=== PATIENT | male | born 1935 | race Caucasian/White ===

== ENCOUNTER 2017-12-13 19:45 | Emergency (ER) | payer MEDICARE ==
[2017-12-13] MEDS: LIDOCAINE W/EPINEPHRINE 1% 20ML VIAL SC (23:18)
[2017-12-13] MEDS: ADACEL/BOOSTRIX VACCINE (DIPHTH/PERTUSS/ACELL/TETANUS)0.5ML SYR (90715) IM (23:19)
== END 2017-12-14 00:12 | disposition home or self-care (01) ==
LOC: M ED 12-14 00:12
DX: S51.012A Laceration without foreign body of left elbow, initial encounter (principal); W01.198A Fall on same level from slipping, tripping and stumbling with subsequent striking against other object, initial encounter; Y92.830 Public park as the place of occurrence of the external cause; I10 Essential (primary) hypertension; E78.00 Pure hypercholesterolemia, unspecified; I25.2 Old myocardial infarction; Z86.73 Personal history of transient ischemic attack (TIA), and cerebral infarction without residual deficits; Z86.711 Personal history of pulmonary embolism; Z89.512 Acquired absence of left leg below knee; Z95.0 Presence of cardiac pacemaker; Z95.1 Presence of aortocoronary bypass graft; Z87.891 Personal history of nicotine dependence; Z88.8 Allergy status to other drugs, medicaments and biological substances; Z91.040 Latex allergy status
CPT/HCPCS: 90715

== ENCOUNTER 2019-08-31 11:13 | Emergency (ER) | payer MEDICARE ==
[~2019-08-31 11:13] MED LIST: ACET1TAB55 PO; ACET65TA OR; ALLO100T OR; ALLO100T PO; AMOX500C PO; CALCIUM PO; GABA-1171 PO; LISI-538 PO; LISI10TA4 PO; LOPR100T PO; MAG PO; METH750T PO; NEUR100C OR; OMEGA 3 FATTY ACIDS PO; PERC5TAB8 PO; PRAV40TA OR; PRAV80TA2 PO; PRAVACHOL PO; PRED10TA2 OR; PRED20TA OR; PRED20TA PO; PRIL40CA PO; PROT1TAB2 OR; TAMS0.4C2 PO; TIZA2TAB OR; TRAM50TA2 OR; TRAM50TA2 PO; TRIC1TAB OR; WHITE WILLOW BARK PO; ZANTAC PO; [UNRECOGNIZED DRUG - OTHER] PO
[2019-08-31] MEDS ORDERED: RANI150T14 (11:31)
[2019-08-31] MEDS ORDERED: ALLOPOW4 (11:31)
[2019-08-31] MEDS ORDERED: TAMS1CAP17 (11:31)
[2019-08-31] MEDS ORDERED: GABA-843 (11:31)
--- NOTE | 2019-08-31 12:02 | REP ---
Clinical: Dizziness . Findings: Age-related atrophy and microvascular ischemic changes are appreciated. The ventricles and sulci are symmetric. Sifuentes-white differentiation is maintained. There is no evidence for acute intracranial hemorrhage, mass/mass effect, pathology or infarction. No extra-axial fluid collection. Calvarium is intact. Paranasal sinuses and mastoid air cells are clear. Impression: Age related atrophy and microvascular ischemic changes. No acute intracranial hemorrhage, infarction, or mass/mass effect. Electronically Signed by Eric Livingston MD 08/31/2019 11:53 A
[2019-08-31 12:09] LABS: BASO % 0.3 % (0.0-1.0); EOS % 0.5 % (0.0-3.0); HEMATOCRIT 45.1 % (42.0-52.0); LYMPH # 0.7 10^3/uL (1.5-5.0); LYMPH % 7.9 % (24.0-44.0); MEAN CORPUSCULAR HEMOGLOBIN 30.9 pg (27.0-33.0); MEAN CORPUSCULAR HGB CONC 33.3 g/dl (32.0-36.5); MEAN CORPUSCULAR VOLUME 92.8 fl (80.0-96.0); MONO # 0.7 10^3/uL (0.0-0.8); MONO % 7.4 % (0.0-5.0); NEUTROPHILS # 7.3 10^3/uL (1.5-8.5); NEUTROPHILS % 83.4 % (36.0-66.0); PLATELET COUNT, AUTOMATED 128 10^3/uL (150-450); RED BLOOD COUNT 4.86 10^6/uL (4.30-6.10); WHITE BLOOD COUNT 8.7 10^3/uL (4.0-10.0)
[2019-08-31 12:22] LABS: ALBUMIN 3.4 GM/DL (3.2-5.2); ALT/SGPT 22 U/L (12-78); BILIRUBIN,TOTAL 0.5 MG/DL (0.2-1.0); BLOOD UREA NITROGEN 22 MG/DL (7-18); CALCIUM LEVEL 8.6 MG/DL (8.8-10.2); CARBON DIOXIDE LEVEL 25 MEQ/L (21-32); CHLORIDE LEVEL 106 MEQ/L (98-107); CK-MB VALUE MASS 2.2 NG/ML (<3.6); CPK CREATINE PHOSPHOKINASE 85 U/L (39-308); CREATININE FOR GFR 1.25 MG/DL (0.70-1.30); GLOMERULAR FILTRATION RATE 58.3 (>35); GLUCOSE, FASTING 127 MG/DL (70-100); MB/CK RELATIVE INDEX 2.59 (< OR =4); POTASSIUM SERUM 3.6 MEQ/L (3.5-5.1); SODIUM LEVEL 138 MEQ/L (136-145); TOTAL PROTEIN 6.5 GM/DL (6.4-8.2); TROPONIN I < 0.02 NG/ML (< 0.10)
[2019-08-31] MEDS ORDERED: NS 500 ML IV ONE (12:30)
[2019-08-31] MEDS ORDERED: MECLIZINE 25 MG TABLET PO ONE (13:00)
[2019-08-31 13:28] LABS: INFLUENZA A AMPLIFICATION NEGATIVE (NEGATIVE); INFLUENZA B AMPLIFICATION NEGATIVE (NEGATIVE)
[2019-08-31] MEDS ORDERED: MECL1TAB31 PO (14:18)
[2019-08-31 14:42] VITALS: BP 144/78
--- NOTE | 2019-08-31 18:01 | ECGEPIP ---
[facility] - ED Test Date: 2019-08-31 Pat Name: DORINA THORNTON SR Department: Room: - Gender: Male [employer]: sami : 1935 Requested By: Sofya Lin Order Number: [id number] Reading MD: Graham Estrada Measurements Intervals [place] Rate: 74 P: 112 DC: 146 QRS: -79 QRSD: 180 T: 92 QT: 455 QTc: 506 Interpretive Statements ELECTRONIC ATRIAL PACEMAKER ELECTRONIC VENTRICULAR PACEMAKER SIMILAR TO 01/09/15 Electronically Signed on 08-31-2019 18:01:49 EST by Graham Estrada
== END 2019-08-31 14:50 | disposition home or self-care (01) ==
LOC: M ED 11:13 → EDBD 11:13 → M ED 14:50
DX: R42 Dizziness and giddiness (principal); I13.10 Hypertensive heart and chronic kidney disease without heart failure, with stage 1 through stage 4 chronic kidney disease, or unspecified chronic kidney disease; I25.2 Old myocardial infarction; I25.10 Atherosclerotic heart disease of native coronary artery without angina pectoris; E78.5 Hyperlipidemia, unspecified; N18.3 Chronic kidney disease, stage 3 (moderate); Z86.73 Personal history of transient ischemic attack (TIA), and cerebral infarction without residual deficits; Z95.0 Presence of cardiac pacemaker; Z95.1 Presence of aortocoronary bypass graft; Z97.14 Presence of artificial left leg (complete) (partial); Z88.8 Allergy status to other drugs, medicaments and biological substances; Z88.6 Allergy status to analgesic agent; Z88.1 Allergy status to other antibiotic agents; Z91.040 Latex allergy status; Z79.899 Other long term (current) drug therapy

== ENCOUNTER 2019-12-27 01:44 | Inpatient (IN) | payer MEDICARE ==
[~2019-12-27] VITALS: Ht 172.7 cm; Wt 72.2 kg
[~2019-12-27 01:44] MED LIST changes: +ALLOPOW4; +GABA-843; +MECL1TAB31 PO; +RANI150T14; +TAMS1CAP17
[2019-12-27] MEDS ORDERED: MORPHINE 2 MG/ML 1ML VIAL (J2270) IV ONE (02:00)
[2019-12-27] MEDS ORDERED: ONDANSETRON 4MG/2ML VIAL IV ONE (02:00)
[2019-12-27] MEDS ORDERED: MELA2.5C3 PO (02:08)
[2019-12-27] MEDS ORDERED: ZYLO300T6 PO (02:08)
[2019-12-27] MEDS ORDERED: CALCTAB54 PO (02:08)
[2019-12-27] MEDS ORDERED: FLOM0.4C39 PO (02:08)
[2019-12-27] MEDS ORDERED: GABA-843 PO ×2 (02:08→09:49)
[2019-12-27] MEDS ORDERED: GABA-843 (02:08)
[2019-12-27] MEDS ORDERED: GNP250TA9 PO (02:08)
[2019-12-27] MEDS ORDERED: [UNRECOGNIZED DRUG - CODE] (02:08)
[2019-12-27 02:21] LABS: BASO % 0.3 % (0.0-1.0); EOS # 0.1 10^3/uL (0.0-0.5); EOS % 0.6 % (0.0-3.0); HEMATOCRIT 49.1 % (42.0-52.0); HEMOGLOBIN 16.3 g/dl (13.5-17.5); LYMPH # 1.4 10^3/uL (1.5-5.0); MEAN CORPUSCULAR HEMOGLOBIN 30.8 pg (27.0-33.0); MEAN CORPUSCULAR HGB CONC 33.2 g/dl (32.0-36.5); MEAN CORPUSCULAR VOLUME 92.6 fl (80.0-96.0); MONO # 0.9 10^3/uL (0.0-0.8); NEUTROPHILS # 9.1 10^3/uL (1.5-8.5); NEUTROPHILS % 78.6 % (36.0-66.0); PLATELET COUNT, AUTOMATED 120 10^3/uL (150-450); WHITE BLOOD COUNT 11.6 10^3/uL (4.0-10.0)
[2019-12-27] MEDS ORDERED: ISOVUE-370 76% 100ML VIAL As Ordered ONE (02:31)
[2019-12-27 02:33] LABS: ALBUMIN 3.7 GM/DL (3.2-5.2); BILIRUBIN,DIRECT 0.2 MG/DL (0.0-0.2); BILIRUBIN,TOTAL 0.5 MG/DL (0.2-1.0)
[2019-12-27] MEDS ORDERED: METAL LOCK LOOP XX ONE (02:35)
[2019-12-27] MEDS ORDERED: MORPHINE 4 MG/ML 1ML VIAL/SYRINGE (J2270) IV ONE (02:45)
[2019-12-27 02:57] LABS: INR 0.99; PROTHROMBIN TIME 12.8 SECONDS (11.8-14.0)
[2019-12-27 02:58] LABS: PARTIAL THROMBOPLASTIN TIME 30.8 SECONDS (25.0-38.4)
[2019-12-27] MEDS ORDERED: NS 1,000 ML IV SCH ×2 (03:00→10:15)
--- NOTE | 2019-12-27 03:14 | REPVR ---
PROCEDURE INFORMATION: Exam: CT Angiography Abdomen and Pelvis With Contrast Exam date and time: 12/27/2019 2:24 AM Age: 84 years old Clinical indication: Abdominal pain; Generalized; Additional info: Mid abd pain R/O aaa TECHNIQUE: Imaging protocol: Computed tomographic angiography of the abdomen and pelvis with intravenous contrast material. 3D rendering: MIP and/or 3D reconstructed images were created by the technologist. Radiation optimization: All CT scans at this facility use at least one of these dose optimization techniques: automated exposure control; mA and/or kV adjustment per patient size (includes targeted exams where dose is matched to clinical indication); or iterative reconstruction. Contrast material: ISO; Contrast volume: 100 ml; Contrast route: AC; COMPARISON: No relevant prior studies available. FINDINGS: Tubes, catheters and devices: Pacemaker in position. Lungs: Mild bibasilar fibro-atelectatic change, primarily involving the lower lobes. Calcified subpleural granuloma in the right base. Mediastinum: Mild hiatal hernia. Aorta: The abdominal aorta demonstrates fusiform aneurysmal dilatation in the infrarenal portion measuring 3.3 cm in diameter. No dissection is seen although there is some mural thrombus within the aneurysm. Celiac trunk and mesenteric arteries: The celiac artery is patent with mild origin stenosis with slight downward hook which may reflect a median arcuate ligament. Branches are unremarkable. The SMA and branches appear normal. The FAIZA is patent. Renal arteries: There is a single right renal artery which is patent and 2 patent left renal arteries. Right iliac arteries: Slight dilatation of the right common iliac artery measuring 18 mm with slight ectasia of the right external and internal iliac arteries compared to the left. Left iliac arteries: Small left external iliac artery which is patent. There is a small left common femoral artery which may extend to the left profunda. The left superficial femoral artery appears to be occluded. Liver: No mass. Gallbladder and bile ducts: Probable cholelithiasis which is obscured by motion artifact. Pancreas: Unremarkable. No mass. No ductal dilation. Spleen: Unremarkable. No splenomegaly. Adrenals: Unremarkable. No mass. Kidneys and ureters: Unremarkable. No solid mass. No hydronephrosis. Stomach and bowel: There is colonic diverticulosis without evidence of diverticulitis. Appendix: There are no changes of appendicitis. A normal appendix is not seen and may be obscured by motion artifact. Intraperitoneal space: Unremarkable. No free air. No significant fluid collection. Lymph nodes: Unremarkable. No enlarged lymph nodes. Bladder: The bladder is within normal limits but does protrude into a right inguinal hernia. Reproductive: Unremarkable as visualized. Bones/joints: Status post resection of the left 7th rib posteriorly and posterolaterally. Status post sternotomy. Soft tissues: Small left inguinal hernia containing fat and a small portion of sigmoid colon without obstruction. There is a small right inguinal hernia containing fat and a portion of the urinary bladder. IMPRESSION: 1. Mild bibasilar fibro-atelectatic change with old granulomatous disease. 2. Mild hiatal hernia. 3. Probable cholelithiasis which is obscured by motion artifact. 4. Colonic diverticulosis without diverticulitis. 5. Small left inguinal hernia containing fat and protrusion of the sigmoid just into the orifice. There is a larger right inguinal hernia which contains fat and a portion of the urinary bladder. 6. Fusiform abdominal aortic aneurysm measuring 3.3 cm. 7. Mild origin stenosis of the celiac artery with question of a median arcuate ligament. 8. Relatively small left external iliac artery and left common femoral artery which appears to occlude by the profunda origin with small collaterals given off. The left superficial femoral artery appears to be occluded. 9. Otherwise negative CTA abdomen/pelvis. Electronically signed by: Cornelio Rosales On 12/27/2019 03:13:46 AM
--- NOTE | 2019-12-27 04:03 | REPVR ---
PROCEDURE INFORMATION: Exam: US Abdomen Limited, Right Upper Quadrant Exam date and time: 12/27/2019 3:49 AM Age: 84 years old Clinical indication: Abdominal pain; Additional info: Abd pain TECHNIQUE: Imaging protocol: Real-time ultrasound of the abdomen with image documentation. Examination was focused on the right upper quadrant. COMPARISON: CT ANGIO ABDOMEN 12/27/2019 2:33 AM FINDINGS: Liver: The liver appears grossly within normal limits with no focal defects. Gallbladder: Multiple gallstones are noted in the gallbladder with sludge. There is borderline gallbladder wall thickening measuring slightly over 3 mm. Common bile duct: The CBD measures up to 12 mm with question of choledocholithiasis. Right kidney: The right kidney is normal measuring 9.3 cm with no hydronephrosis. There is a small cyst measuring 6 x 7 x 8 mm. IMPRESSION: 1. Cholelithiasis with sludge. 2. Dilated CBD measuring 12 mm with question of choledocholithiasis. Electronically signed by: Cornelio Rosales On 12/27/2019 04:03:36 AM
[2019-12-27] MEDS: MORPHINE 4 MG/ML 1ML VIAL/SYRINGE (J2270) IV PRN ×2 (04:07→04:45)
[2019-12-27] MEDS ORDERED: GI COCKTAIL 50ML BTL(HYOSCYAMINE/MAALOX/LIDOCAINE VISCOUS)(1:3:1) PO ONE (05:15)
[2019-12-27 06:15] LABS: BILIRUBIN,DIRECT 0.2 MG/DL (0.0-0.2); BILIRUBIN,TOTAL 0.5 MG/DL (0.2-1.0); TOTAL PROTEIN 5.4 GM/DL (6.4-8.2)
[2019-12-27] MEDS ORDERED: MECL-86 PO (06:50)
[2019-12-27] MEDS ORDERED: FAMO20TA PO (06:50)
[2019-12-27] MEDS ORDERED: PIPERACILLIN/TAZOBACTAM SOD 3.375 GM in D5W MINI-BAG PLUS 50 ML IV ONE (08:15)
[2019-12-27 09:08] VITALS: BP 160/82
[2019-12-27] MEDS ORDERED: OMEGCAP9 PO (09:49)
[2019-12-27] MEDS ORDERED: CALC600T57 PO (09:49)
[2019-12-27] MEDS ORDERED: CVS10CAP7 PO (09:49)
[2019-12-27] MEDS ORDERED: VITMTA PO (09:49)
[2019-12-27] MEDS ORDERED: MED REC COMMENT (09:49)
[2019-12-27] MEDS ORDERED: MAGN400T2 PO (09:49)
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
[2019-12-27 14:00] VITALS: BP 140/62
[2019-12-27] MEDS ORDERED: MECLIZINE 25 MG TABLET PO PRN (16:00)
[2019-12-27] MEDS ORDERED: ONDANSETRON 4MG/2ML VIAL IV PRN (16:15)
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
--- NOTE | 2019-12-27 16:59 | CR.PDOC ---
General Date of Consultation: Dec 27, 2019 Consultation REASON FOR CONSULTATION/CHIEF COMPLAINT: Abdominal pain HISTORY OF PRESENT ILLNESS: This is a very pleasant 84-year-old gentleman who is seen in the emergency room this morning for periumbilical abdominal pain. He was worked up thoroughly by our ER team, and abdominal imaging revealed gallstones which were evaluated by general surgery, Dr Rankin. He felt it was unlikely that the patient's pain was related to gallstones, but did feel it was likely GI related. Incidentally, the patient was found to have an infrarenal AAA. I was consulted for evaluation. 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 I believe this is an incidental finding. I do not believe it is related to the patient's current complaints of abdominal pain. Additionally, because of the patient's aortic anatomy, I do not feel he is not a candidate for endovascular aortic aneurysm repair. Due to his advanced age and comorbidities, and open aneurysm repair would have an extremely high morbidity and mortality associated with in this patient. Because of the perirenal nature of the aneurysm, he would be high-risk for renal failure postop. Because of his cardiac history, he would be high-risk for perioperative SC and associated pathology. There is a high likelihood that that he would not have a meaningful recovery afterwards. Typically, we also do not recommend repair of AAA if the patient's life expectancy is not expected to be more than 3 years from the time of repair. Although this is certainly not an exact science, I do not feel I would recommend an open repair of this patient. However, we would be happy to monitor the patient's status, and if he wanted to pursue more aggressive intervention, we would likely refer him to [place] for a higher level of care for this procedure if needed. I spoke with the patient at length and he is agreeable to this plan. He says his abdominal pain is gone and he is hoping to get back home soon. ALLERGIES: Please see below. HOME MEDICATIONS: Please see below. PAST MEDICAL HISTORY: AAA, neuropathy, CAD, BPH, HTN, HLD, gout, stage III CRI PAST SURGICAL HISTORY: Pacemaker, PCI, CABG, abdominal hernia repair, L AKA FAMILY HISTORY: Heart disease, cancer SOCIAL HISTORY: History of tobacco use, denies current tobacco use, denies alcohol or illicit drug use REVIEW OF SYSTEMS: CONSTITUTIONAL: Denies fevers or chills HEENT: Denies acute vision or hearing loss CARDIOVASCULAR: Denies current chest pain RESPIRATORY: Denies shortness of breath GENITOURINARY: Denies dysuria MUSCULOSKELETAL: Denies claudication, positive gout GASTROINTESTINAL: Positive abdominal pain SKIN: Denies rashes NEUROLOGICAL: An eye strokes, seizures, headaches PSYCHIATRIC: Denies anxiety or depression ENDOCRINE: Denies diabetes or thyroid disease HEMATOLOGIC/LYMPHATIC: Denies anemia ALLERGIC/IMMUNOLOGIC: Denies PHYSICAL EXAMINATION: VITAL SIGNS: Please see below. GENERAL APPEARANCE: Medically stable, no acute distress HEENT: Normocephalic, TMI, vision grossly intact RESPIRATORY: Clear to auscultation CARDIOVASCULAR: Regular rate and rhythm ABDOMEN: Soft mild periumbilical tenderness, no guarding or rebound positive bowel sounds EXTREMITIES: Distal pulses are weak RLE, biphasic signals at the DP and PT, foot are warm and perfused with 1 second capillary refill, stable L AKA NEUROLOGICAL: Moves all extremities equally, alert and oriented 3 PSYCHIATRIC: Pleasant and cooperative LABORATORY DATA: Please see below. ASSESSMENT/PLAN: Very pleasant 84-year-old gentleman with incidental finding of 4.6 cm perirenal AAA on CT workup for abdominal pain 1. No surgical intervention recommended at this time for stable nonruptured AAA 2. Follow-up CTA imaging in 6 months with vascular surgery clinic appointment We appreciate the opportunity to participate in the care of this patient Vital Signs/I&O Vital Signs Date Time Temp Pulse Resp B/P (MAP) Pulse Ox O2 Delivery O2 Flow Rate FiO2 12/27/19 14:00 98.5 85 17 140/62 (88) 92 Room Air 12/27/19 08:02 2.0 Laboratory Data Labs 24H Laboratory Tests 2 12/27/19 01:56: Total Bilirubin 0.5, Direct Bilirubin 0.2, Aspartate Amino Transf (AST/SGOT) 20, Alanine Aminotransferase (ALT/SGPT) 21, Alkaline Phosphatase 62, Total Protein 7.0, Albumin 3.7, Albumin/Globulin Ratio 1.1, Lipase 84 12/27/19 01:58: Immature Granulocyte % (Auto) 0.5, Neutrophils (%) (Auto) 78.6H, Lymphocytes (%) (Auto) 12.0L, Monocytes (%) (Auto) 8.0H, Eosinophils (%) (Auto) 0.6, Basophils (%) (Auto) 0.3, Neutrophils # (Auto) 9.1H, Lymphocytes # (Auto) 1.4L, Monocytes # (Auto) 0.9H, Eosinophils # (Auto) 0.1, Basophils # (Auto) 0.0, Nucleated Red Blood Cells % (auto) 0.0, Prothrombin Time 12.8, Prothromb Time International Ratio 0.99, Activated Partial Thromboplast Time 30.8 12/27/19 02:05: POC Glucose (Misc Panel) 120H, POC Sodium (Misc Panel) 139, POC Potassium (Misc Panel) 3.9, POC Chloride (Misc Panel) 97L, POC Total CO2 (Misc Panel) 30.0H, POC Blood Urea Nitrogen (Misc Panel 22, POC Ionized Calcium (Misc Panel) 5.3, POC Creatinine (Misc Panel) 1.4H, POC Hematocrit (Misc Panel) 51.0 12/27/19 02:08: POC Lactate (Misc Panel) 1.74 12/27/19 02:10: POC Troponin I (Misc) 0.02 12/27/19 05:22: Total Bilirubin 0.5, Direct Bilirubin 0.2, Aspartate Amino Transf (AST/SGOT) 14, Alanine Aminotransferase (ALT/SGPT) 18, Alkaline Phosphatase 51, Total Protein 5.4#L, Albumin 3.0L, Albumin/Globulin Ratio 1.3, Lipase 53L CBC/BMP Laboratory Tests 12/27/19 01:58 Allergies Coded Allergies: aspirin (Verified Allergy, Unknown, 08/31/19) atorvastatin (Verified Allergy, Unknown, 08/31/19) latex (Verified Allergy, Unknown, 08/31/19) rosuvastatin (Verified Allergy, Unknown, 08/31/19) tetracycline (Verified Allergy, Unknown, 08/31/19) Home Medications Scheduled Allopurinol (Zyloprim) 300 Mg Tablet, 300 MG PO DAILY, (Reported) Calcium Carbonate/Vitamin D3 (Calcium 600-Vit D3 200 Tablet) 1 Each Tablet, 2 TAB PO DAILY, (Reported) Famotidine (Famotidine) 20 Mg Tablet, 20 MG PO DAILY, (Reported) Fish Oil/Borage/Flax/Om3,6,9 1 ([place] 3-6-9 Complex Softgel) 400 Mg Capsule, 1 CAP PO 2XW, (Reported) Gabapentin (Gabapentin) 300 Mg Capsule, 600 MG PO BID, (Reported) AM/HS Gabapentin (Gabapentin) 300 Mg Capsule, 300 MG PO DAILY, (Reported) TAKES AT NOON Magnesium Oxide (Magnesium Oxide) 400 Mg Tablet, 400 MG PO QHS, (Reported) Melatonin (Melatonin) 10 Mg Capsule, 10 MG PO QHS, (Reported) Multivitamins (Thera M Plus Tablet) 1 Each Tablet, 1 TAB PO DAILY, (Reported) Tamsulosin HCl (Flomax) 0.4 Mg Capsule, 0.4 MG PO DAILY, (Reported) Scheduled PRN Meclizine HCl (Meclizine HCl) 25 Mg Tablet, 25 MG PO TID PRN for DIZZINESS, (Reported) Miscellaneous Medications [Med Rec Comment] , (Reported) ALL MEDICATIONS VERIFIED WITH PCP OFFICE PRISCILLA BURGOS MD Dec 27, 2019 16:59
[2019-12-27] MEDS: TAMSULOSIN 0.4 MG CAP PO SCH ×2 (17:07→17:31)
[2019-12-27] MEDS: MULTIVITAMINS/MINERALS THERAP 1 TAB PO SCH ×2 (17:08→17:31)
[2019-12-27] MEDS: CALCIUM/VITAMIN D 500 MG TAB PO SCH ×2 (17:08→17:32)
[2019-12-27] MEDS: allopurinoL 300 MG TAB PO SCH ×2 (17:09→17:32)
[2019-12-27] MEDS: OMEGA-3 1000MG CAPSULE PO SCH (17:31)
[2019-12-27] MEDS: PIPERACILLIN/TAZOBACTAM SOD 3.375 GM in D5W MINI-BAG PLUS 50 ML IV SCH ×2 (17:32→21:01)
[2019-12-27] MEDS: SUCRALFATE SUSP 1GM/10ML UD PO SCH (21:01)
[2019-12-27] MEDS: MAGNESIUM OXIDE 400 MG TAB (MAG-OX) PO SCH (21:01)
[2019-12-27] MEDS: PANTOPRAZOLE 40MG TAB (PROTONIX) PO SCH (21:01)
[2019-12-27] MEDS: GABAPENTIN 300 MG CAP PO SCH (21:01)
[2019-12-27] MEDS: ACETAMINOPHEN TAB 650MG DOSE (2X325MG) PO PRN (21:11)
--- NOTE | 2019-12-27 21:28 | ECGEPIP ---
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
[2019-12-27 22:00] VITALS: BP 116/54
[2019-12-27] MEDS: NS 1,000 ML IV SCH (22:14)
[2019-12-27 22:22] LABS: VENOUS BASE EXCESS -0.5 (-2.0-2.0); VENOUS HCO3 24.9 MEQ/L (23.0-27.0); VENOUS O2 SATURATION 96.9 % (60.0-80.0); VENOUS PARTIAL PRESSURE CO2 43.4 mmHg (38.0-50.0); VENOUS PARTIAL PRESSURE O2 85.7 mmHg (30.0-50.0); VENOUS PH 7.376 UNITS (7.330-7.430); VENOUS STANDARD HCO3 24.1 MEQ/L; VENOUS TOTAL CO2 26.2 MEQ/L (24.0-28.0)
[2019-12-28] VITALS (10 sets, daily range): BP systolic 105–152; BP diastolic 54–85
[2019-12-28] MEDS: PIPERACILLIN/TAZOBACTAM SOD 3.375 GM in D5W MINI-BAG PLUS 50 ML IV SCH ×3 (03:48→18:11)
[2019-12-28] MEDS: NS 1,000 ML IV SCH (03:51)
[2019-12-28] MEDS: ACETAMINOPHEN TAB 650MG DOSE (2X325MG) PO PRN (05:23)
[2019-12-28 05:35] LABS: HEMATOCRIT 42.5 % (42.0-52.0); MEAN CORPUSCULAR HEMOGLOBIN 30.7 pg (27.0-33.0); MEAN CORPUSCULAR VOLUME 95.9 fl (80.0-96.0); RED BLOOD COUNT 4.43 10^6/uL (4.30-6.10)
[2019-12-28 06:00] LABS: CALCIUM LEVEL 8.8 MG/DL (8.8-10.2); CREATININE FOR GFR 1.98 MG/DL (0.70-1.30); GLOMERULAR FILTRATION RATE 34.3 (>35); POTASSIUM SERUM 4.4 MEQ/L (3.5-5.1)
[2019-12-28] MEDS: SUCRALFATE SUSP 1GM/10ML UD PO SCH ×3 (06:00→21:32)
[2019-12-28 06:11] LABS: PLATELET COUNT, AUTOMATED 83 10^3/uL (150-450)
[2019-12-28 06:12] LABS: HEMOGLOBIN 13.6 g/dl (13.5-17.5)
[2019-12-28 07:01] LABS: ALBUMIN 2.7 GM/DL (3.2-5.2); BILIRUBIN,DIRECT 0.4 MG/DL (0.0-0.2); BILIRUBIN,TOTAL 1.4 MG/DL (0.2-1.0); TOTAL PROTEIN 5.7 GM/DL (6.4-8.2)
--- NOTE | 2019-12-28 07:41 | IPNPDOC ---
Date Seen The patient was seen on 12/28/19. Progress Note Patient seen and examined. He has been asymptomatic 4.6 cm AAA, nonruptured. This was an incidental finding on CT scan for abdominal pain. Today, the patient's abdominal pain is still resolved. He denies any. Umbilical tenderness ongoing, and says his symptoms at admission are no longer present. He is hopeful he will be able to go home today, but says he is not sure because they think he might still be too weak. He has no new back pain or other concerning factors for instability of AAA, and he is stable for discharge home from a vascular surgery standpoint. We will see him back in 6 months with a CTA of the abdomen and pelvis. We appreciate the opportunity to participate in the care of this patient. VS, I&O, 24H, [place] Vital Signs/I&O Vital Signs Date Time Temp Pulse Resp B/P (MAP) Pulse Ox O2 Delivery O2 Flow Rate FiO2 12/28/19 06:00 100.6 78 12 110/73 (85) 90 Nasal Cannula 2.0 I&O- Last 24 Hours up to 6 AM 12/28/19 06:00 Intake Total 2590 ml Output Total 1075 ml Balance 1515 ml Laboratory Data 24H LABS Laboratory Tests 2 12/27/19 22:14: Blood Gas Bicarbonate Standard 24.1, Venous Blood pH 7.376, Venous Blood Partial Pressure CO2 43.4, Venous Blood Partial Pressure O2 85.7H, Venous Blood Total Carbon Dioxide 26.2, Venous Blood HCO3 24.9, Venous Blood Oxygen Saturation 96.9H, Venous Blood Base Excess -0.5 12/28/19 05:09: Nucleated Red Blood Cells % (auto) 0.0, Immature Platelet Fraction 1.3, Anion Gap 5L, Glomerular Filtration Rate 34.3L, Calcium Level 8.8, Magnesium Level 2.0, Total Bilirubin 1.4#H, Direct Bilirubin 0.4H, Aspartate Amino Transf (AST/SGOT) 18, Alanine Aminotransferase (ALT/SGPT) 19, Alkaline Phosphatase 48, Total Protein 5.7L, Albumin 2.7L, Albumin/Globulin Ratio 0.9, Lipase 33L CBC/BMP Laboratory Tests 12/28/19 05:09 Microbiology Microbiology 12/27/19 Blood Culture, Received Pending PRISCILLA BURGOS MD Dec 28, 2019 07:41
[2019-12-28] MEDS: MULTIVITAMINS/MINERALS THERAP 1 TAB PO SCH (09:35)
[2019-12-28] MEDS: allopurinoL 300 MG TAB PO SCH (09:35)
[2019-12-28] MEDS: CALCIUM/VITAMIN D 500 MG TAB PO SCH (09:35)
[2019-12-28] MEDS: PANTOPRAZOLE 40MG TAB (PROTONIX) PO SCH ×2 (09:35→21:32)
[2019-12-28] MEDS: TAMSULOSIN 0.4 MG CAP PO SCH (09:37)
[2019-12-28] MEDS: GABAPENTIN 300 MG CAP PO SCH ×3 (09:37→21:32)
--- NOTE | 2019-12-28 10:31 | IPNPDOC ---
Text Note Date of Service The patient was seen on 12/28/19. NOTE Subjective: -Fever overnight to 100.5 - had BCx drawn, zosyn continued and maintenance fluids continued at 60cc/hr -Earlier in the day had been advanced to full liquid diet Objective: Vitals signs: HDS, afebrile this AM, Tmax over 24h was 100.5 General: Alert, No Acute Distress Eye: PERRLA, EOMI, anicteric ENT: MMM Neck: supple, no JVD Chest: CTAB Heart: RRR, no mrg Abdomen: Obese, normoactive bowel sounds, mild TTP mostly in epigastrium, negative Nunez's, no involuntary guarding or rebound Extremity:LLE s/p AKA, RLE without edema, WWP Skin: no noted rashes or lesions Neuro: Cranial Nerves 3-12 WNL, moving all extremities Psych: Mental status WNL, Oriented x 3 Labs: reviewed WBC increased to 17 Hgb 13.6 Platelets 83 na 140 K4.4 mag 2 Cr increased to 1.98 Assessment: 84 yo man with a pertinent medical history of CAD s/p CABG, s/p PPP, HTN, HLD, gout, CKD3 with baseline Cr 1.3-1.9, history of a PE, TIA, abdominal hernia, history of GIB and L AKA who presented to the ED diffuse abdominal pain that was worst in the epigastrium a few hours after having a pizza dinner and found on imaging to have cholelithiasis and possible choledocholithiasis and an infrarena l AAA deemed incidental on empiric zosyn, BID PPI and slow maintenance fluids with surgery onboard. Abdominal pain: likely 2/2 gall bladder/biliary tree pathology vs. less likely vascular in etiology despite AAA finding or gastritis. Now with fever and worsening leukocytosis c/f ascending cholangitis. -f/u AM LFTs -f/u AM lipase -Admission US showed significant gallstone and slugde, mild gall bladder thickening and possible choledocholithiasis -continue empiric zosyn -continued fluids at 60cc/hr -general surgery consulted, MRCP unfortunately not done due to PPM incompatibility. Now with fever overnight with c/f worsening cholecystitis vs. gallstone pancreatitis vs. developing cholangitis -->we do not have GI this week. On discussion with Dr. Chucho, decided to reach out to Dr. Heaton who graciously agreed to see the patient and potentially do an ERCP today. Made him NPO. -Vascular surgery consulted for AAA, appreciate recs -pain appears well controlled -PPI BID -sucralfate TID Mild thrombocytopenia: at baseline -monitor. To use mechanicals for DVT ppx BPH -flomax chronic pain -continue home gabapentin CAD s/p CABG: -Had GIB associated with ASA use, monitor -EKG was non ischemic and troponin negative and without chest pain. Gout -allopurinol CKD3: at baseline -monitor BMP daily -avoid nephrotoxins Oscal D Multivitamin DVT ppx: DMITRI and SCD Dispo: medsurg VS,Fishbone, I+O VS, Fishbone, I+O Laboratory Tests 12/28/19 05:09 Vital Signs Date Time Temp Pulse Resp B/P (MAP) Pulse Ox O2 Delivery O2 Flow Rate FiO2 12/28/19 02:00 98.9 71 16 105/54 (71) 95 Nasal Cannula 2.0 I&O- Last 24 Hours up to 6 AM 12/28/19 06:00 Intake Total 2590 ml Output Total 675 ml Balance 1915 ml SABRINA PAULA MD Dec 28, 2019 06:44
--- NOTE | 2019-12-28 11:44 | IPN ---
DATE: 12/28/2019 The patient overnight had a temperature spike up 100.6 and his white count bumped up to 17,000. Unfortunately, his bilirubin bumped to 1.4. He still does not complain of right upper quadrant pain. Most of his pain is in the midabdomen. His lipase is still normal. Overall, he states this is not as severe as it originally was and imaging beforehand revealed dilated common bile duct with a possible common bile duct stone and CTA was otherwise unremarkable. No evidence of cholecystitis on the study. No evidence of inflammatory process intra-abdominally, thus given our only current positive findings as being a dilated common bile duct with a common bile duct stone and elevated temperature, white count, and sit starting to elevate liver function tests (LFTs) suggest this might have a possibility of being ascending cholangitis. I would have expected the LFTs to be much higher at this point, but in any case, I recommended to the hospitalist to obtain a GI consultation for possible endoscopic retrograde cholangiopancreatography (ERCP) given that he has a pacemaker and is unable to proceed with a magnetic resonance cholangiopancreatography (MRCP). Dr. Tello is around this weekend for surgical consultation should any additional findings or problems develop.
[2019-12-28] MEDS ORDERED: LIDOCAINE 2% 100MG/5ML SDV (FOR ANES.) As Ordered ONE (14:23)
[2019-12-28] MEDS ORDERED: ROCURONIUM BROMIDE 50 MG/5 ML VIAL As Ordered ONE (14:23)
[2019-12-28] MEDS ORDERED: propofoL 200 MG/20 ML VIAL As Ordered ONE (14:23)
[2019-12-28] MEDS ORDERED: fentaNYL 250 MCG/5 ML INJECTION (J3010) As Ordered ONE (14:23)
[2019-12-28] MEDS ORDERED: ISOVUE-300 61% 50ML VIAL As Ordered ONE (14:31)
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
[2019-12-28] MEDS ORDERED: ePHEDrine SULFATE 25 MG/5 ML(5MG/ML) SYRINGE As Ordered ONE (15:02)
[2019-12-28] MEDS ORDERED: PHENYLephrine HCL 500 MCG/5 ML (100MCG/ML) SYRINGE (J2370) As Ordered ONE (15:02)
[2019-12-28] MEDS ORDERED: ONDANSETRON 4MG/2ML VIAL As Ordered ONE (15:08)
[2019-12-28] MEDS ORDERED: dexameTHASONE 4 MG/ML 1ML VIAL (J1100 PER 1MG) As Ordered ONE (15:08)
[2019-12-28] MEDS ORDERED: SUGAMMADEX SODIUM 500 MG/5 ML VIAL (BRIDION) As Ordered ONE (15:17)
--- NOTE | 2019-12-28 16:12 | ROOR ---
Patient Name: Rakesh Higgins Procedure Date: 12/28/2019 2:54 PM Date of : 1935 Age: 84 Room: Main OR Gender: Male Note Status: Finalized Procedure: ERCP Indications: Bile duct stone(s), Suspected ascending cholangitis Providers: Jr Heaton MD Referring MD: Yaneth Beal Md Requesting Provider: Douglas Rankin Jr, MD Medicines: Monitored Anesthesia Care Complications: No immediate complications. Procedure: Pre-Anesthesia Assessment: - Prior to the procedure, a History and Physical was performed, and patient medications and allergies were reviewed. The patient is competent. The risks and benefits of the procedure and the sedation options and risks were discussed with the patient. All questions were answered and informed consent was obtained. Patient identification and proposed procedure were verified by the physician, the nurse and the anesthesiologist in the procedure room. Mental Status Examination: alert and oriented. Airway Examination: normal oropharyngeal airway and neck mobility. Respiratory Examination: clear to auscultation. CV Examination: normal. Prophylactic Antibiotics: The patient does not require prophylactic antibiotics. Prior Anticoagulants: The patient has taken no previous anticoagulant or antiplatelet agents. ASA Grade Assessment: III - A patient with severe systemic disease. After reviewing the risks and benefits, the patient was deemed in satisfactory condition to undergo the procedure. The anesthesia plan was to use general anesthesia. Immediately prior to administration of medications, the patient was re-assessed for adequacy to receive sedatives. The heart rate, respiratory rate, oxygen saturations, blood pressure, adequacy of pulmonary ventilation, and response to care were monitored throughout the procedure. The physical status of the patient was re-assessed after the procedure. The Duodenoscope was introduced through the mouth, and advanced to the duodenum and used to inject contrast into the bile duct. The ERCP was accomplished without difficulty. The patient tolerated the procedure well. Findings: The office equipment technician film was normal. The esophagus was successfully intubated under direct vision. The scope was advanced to a normal major papilla in the descending duodenum without detailed examination of the pharynx, larynx and associated structures, and upper GI tract. The upper GI tract was grossly normal. A 0.035 inch x 260 cm straight Hydra Jagwire was passed into the biliary tree. The short-nosed traction sphincterotome was passed over the guidewire and the bile duct was then deeply cannulated. Contrast was injected. I personally interpreted the bile duct images. Ductal flow of contrast was adequate. Image quality was adequate. Contrast extended to the cystic duct. Contrast extended to the gallbladder. Contrast extended to the entire biliary tree. The common bile duct was partially obstructed. The main bile duct was mildly dilated, acquired. The largest diameter was 10 mm. The gallbladder contained multiple stones. Biliary sphincterotomy was made with a monofilament traction (standard) sphincterotome using ERBE electrocautery. There was no post-sphincterotomy bleeding. The biliary tree was swept with a 10 mm balloon starting at the bifurcation. Sludge was swept from the duct. A few stones were removed. No stones remained. Cells for cytology were obtained by brushing in the lower third of the main bile duct where suspected stricture is noted. One 10 mm by 6 cm covered metal stent was placed into the common bile duct. Bile flowed through the stent. The stent was in good position. Pancreatic duct was neither cannulated nor opacified. Impression: - A biliary tract obstruction was found in the common bile duct. - The entire main bile duct was mildly dilated, acquired. - Choledocholithiasis with a partial obstruction was found. Complete removal was accomplished by biliary sphincterotomy and balloon extraction. - A biliary sphincterotomy was performed. - The biliary tree was swept. - Cells for cytology obtained the lower third of the main bile duct where suspected stricture is noted. - One covered metal stent was placed into the common bile duct. - Pancreatic duct was neither cannulated nor opacified. Recommendation: - The patient will be observed post-procedure, until all discharge criteria are met. - Return patient to [facility] for [facility] care. - Patient has a contact number available for emergencies. The signs and symptoms of potential delayed complications were discussed with the patient. Return to normal activities tomorrow. Written discharge instructions were provided to the patient. - Avoid aspirin and nonsteroidal anti-inflammatory medicines. - Clear liquid diet for 1 day, then advance as tolerated to cardiac diet. - Further evaluate to ruleout other sources of sepsis. - Await cytology results. - Telephone GI clinic for pathology results in 2 weeks. - Repeat ERCP in 3 months to remove stent depending on the clinical course.. Consider elective cholscystectomy based on clinical course. - Telephone GI clinic to schedule appointment in [facility] (address [address], [address], [place] [address]) in 4 -- 6 weeks. Please call GI clinic @ [phone] for apppointment date and time. - Return to primary care physician. Jr Heaton MD Jr Heaton MD 12/28/2019 4:11:59 PM Electronically signed by Jr Heaton MD Number of Addenda: 0 Note Initiated On: 12/28/2019 2:54 PM Estimated Blood Loss: Estimated blood loss: none.
[2019-12-28] MEDS ORDERED: oxyCODONE 5MG TAB PO PRN (16:15)
[2019-12-28] MEDS ORDERED: fentaNYL 100 MCG/2 ML INJECTION (J3010) IV PRN (16:15)
[2019-12-28] MEDS ORDERED: ONDANSETRON 4MG/2ML VIAL IV PRN (16:15)
[2019-12-28] MEDS ORDERED: LR 1,000 ML IV SCH (16:15)
[2019-12-28] MEDS ORDERED: oxyCODONE 5MG TAB As Ordered ONE (16:50)
--- NOTE | 2019-12-28 17:10 | REP ---
C-ARM VIEWS DURING ERCP: Multiple C-arm views are performed during ERCP. Contrast is injected into the common bile duct, which appears mildly dilated at 11 mm. Some contrast extends into the gallbladder which demonstrates multiple filling defects, consistent with gallstones. I do not see a definite filling defect or focal stricture in the common bile duct. A stent is placed in the distal common bile duct. 34 seconds fluoroscopy time utilized. Electronically Signed by Kulwant Sifuentes MD 01/01/2020 06:55 P
[2019-12-28] MEDS ORDERED: PIPERACILLIN/TAZOBACTAM SOD 3.375 GM in D5W MINI-BAG PLUS 50 ML IV SCH (18:00)
[2019-12-28 20:34] LABS: HEMATOCRIT 41.8 % (42.0-52.0); HEMOGLOBIN 13.4 g/dl (13.5-17.5); MEAN CORPUSCULAR HEMOGLOBIN 30.8 pg (27.0-33.0); MEAN CORPUSCULAR HGB CONC 32.1 g/dl (32.0-36.5); MEAN CORPUSCULAR VOLUME 96.1 fl (80.0-96.0); RED BLOOD COUNT 4.35 10^6/uL (4.30-6.10); WHITE BLOOD COUNT 18.9 10^3/uL (4.0-10.0)
[2019-12-28 20:44] LABS: PLATELET COUNT, AUTOMATED 79 10^3/uL (150-450)
[2019-12-28 20:45] LABS: ALBUMIN 2.8 GM/DL (3.2-5.2); BILIRUBIN,DIRECT 0.6 MG/DL (0.0-0.2); BILIRUBIN,TOTAL 1.3 MG/DL (0.2-1.0); TOTAL PROTEIN 5.7 GM/DL (6.4-8.2)
[2019-12-28] MEDS: MAGNESIUM OXIDE 400 MG TAB (MAG-OX) PO SCH (21:32)
[2019-12-28] MEDS: PIPERACILLIN/TAZOBACTAM SOD 2.25 GM in D5W MINI-BAG PLUS 50 ML IV SCH (23:32)
[2019-12-29] VITALS (7 sets, daily range): BP systolic 116–131; BP diastolic 56–68
[2019-12-29] MEDS: NS 1,000 ML IV SCH (04:22)
[2019-12-29] MEDS: PIPERACILLIN/TAZOBACTAM SOD 2.25 GM in D5W MINI-BAG PLUS 50 ML IV SCH ×2 (05:42→12:48)
[2019-12-29] MEDS: SUCRALFATE SUSP 1GM/10ML UD PO SCH ×3 (05:42→21:19)
[2019-12-29 06:43] LABS: HEMATOCRIT 40.2 % (42.0-52.0); HEMOGLOBIN 12.9 g/dl (13.5-17.5); MEAN CORPUSCULAR HEMOGLOBIN 30.9 pg (27.0-33.0); MEAN CORPUSCULAR HGB CONC 32.1 g/dl (32.0-36.5); MEAN CORPUSCULAR VOLUME 96.4 fl (80.0-96.0); RED BLOOD COUNT 4.17 10^6/uL (4.30-6.10); WHITE BLOOD COUNT 15.7 10^3/uL (4.0-10.0)
[2019-12-29 06:48] LABS: PLATELET COUNT, AUTOMATED 72 10^3/uL (150-450)
[2019-12-29 07:03] LABS: CALCIUM LEVEL 8.3 MG/DL (8.8-10.2); CREATININE FOR GFR 1.71 MG/DL (0.70-1.30); GLOMERULAR FILTRATION RATE 40.6 (>35); MAGNESIUM LEVEL 2.3 MG/DL (1.8-2.4); POTASSIUM SERUM 4.3 MEQ/L (3.5-5.1)
[2019-12-29] MEDS: CALCIUM/VITAMIN D 500 MG TAB PO SCH (08:13)
[2019-12-29] MEDS: GABAPENTIN 300 MG CAP PO SCH ×3 (08:13→21:19)
[2019-12-29] MEDS: TAMSULOSIN 0.4 MG CAP PO SCH (08:13)
[2019-12-29] MEDS: PANTOPRAZOLE 40MG TAB (PROTONIX) PO SCH ×2 (08:14→21:19)
[2019-12-29] MEDS: MULTIVITAMINS/MINERALS THERAP 1 TAB PO SCH (08:14)
[2019-12-29] MEDS: allopurinoL 300 MG TAB PO SCH (08:14)
--- NOTE | 2019-12-29 13:40 | IPNPDOC ---
Text Note Date of Service The patient was seen on 12/29/19. NOTE Subjective: -Afebrile, HDS, no complaints this morning -Had ERCP yesterday with Dr. Heaton that went well and had CBD stone and possible stricture noted s/p stent placement -Tolerating clear liquid diet, advanced to regular this AM Objective: Vitals signs: HDS, afebrile this AM General: Alert, No Acute Distress Eye: PERRLA, EOMI, anicteric ENT: MMM Neck: supple, no JVD Chest: CTAB Heart: RRR, no mrg Abdomen: Obese, normoactive bowel sounds, mild TTP mostly in epigastrium, negative Nunez's, no involuntary guarding or rebound Extremity:LLE s/p AKA, RLE without edema, WWP Skin: no noted rashes or lesions Neuro: Cranial Nerves 3-12 WNL, moving all extremities Psych: Mental status WNL, Oriented x 3 Labs: reviewed WBC down to 15.7 Hgb 12.9 Platelets 72 na 133 K4.3 mag 2.3 Cr increased to 1.71 Tbili 1.3 Assessment: 84 yo man with a pertinent medical history of CAD s/p CABG, s/p PPP, HTN, HLD, gout, CKD3 with baseline Cr 1.3-1.9, history of a PE, TIA, abdominal hernia, history of GIB and L AKA who presented to the ED diffuse abdominal pain that was worst in the epigastrium a few hours after having a pizza dinner and found on imaging to have cholelithiasis and possible choledocholithiasis and an infrarenal AAA deemed incidental on empiric zosyn, who course was c/b fever and now s/p ERCP with stenting by GI now afebrile with downtrending leukocytosis. Abdominal pain: likely 2/2choledocholithiasis unlikely billy cholangitis per ERCP findings vs. less likely vascular in etiology despite AAA finding or gastritis. -switch from zosyn to cipro/flagyl PO -Had ERCP with Dr. 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 - GI recommending avoiding aspirin and NSAIDs, clear liquid diet for 1 day, then advance as tolerated to cardiac diet, and further evaluate to rule out other sources of sepsis. - f/u cytology results. - Patient to telephone GI clinic for pathology results in 2 weeks. - GI recommending repeat ERCP in 3 months to remove stent depending on the clinical course and consider elective cholscystectomy based on clinical course. - Outpatient GI scheduling info: Telephone GI clinic to schedule appointment in [facility] (address [address], [address], [place], [facility]) in 4 -- 6 weeks. Please call GI clinic @ [phone] for appointment date and time. -general surgery consulted, recommended GI's involvement for ERCP, appreciate recs -Vascular surgery consulted for AAA, appreciate recs -pain appears well controlled -PPI BID -sucralfate TID Worsening acute on chronic thrombocytopenia: Likely reactive in the setting of infection and acute inflammation -monitor. -TEDs and SCDs BPH -flomax chronic pain -continue home gabapentin CAD s/p CABG: -Had GIB associated with ASA use, monitor -EKG was non ischemic and troponin negative and without chest pain. Gout -allopurinol CKD3: at baseline -monitor BMP daily -avoid nephrotoxins Oscal D Multivitamin DVT ppx: DMITRI and SCD Dispo: medsurg, with ongoing PT/OT VS,Fishbone, I+O VS, Fishbone, I+O Laboratory Tests 12/28/19 20:08 12/29/19 05:51 Vital Signs Date Time Temp Pulse Resp B/P (MAP) Pulse Ox O2 Delivery O2 Flow Rate FiO2 12/29/19 07:10 97.5 75 17 124/62 (82) 94 Nasal Cannula 3.0 I&O- Last 24 Hours up to 6 AM 12/29/19 06:00 Intake Total 1870 ml Output Total 300 ml Balance 1570 ml SABRINA PAULA MD Dec 29, 2019 08:32
[2019-12-29] MEDS: CIPROFLOXACIN 500MG TABLET PO SCH (17:13)
--- NOTE | 2019-12-29 20:53 | IPNPDOC ---
Text Note Date of Service The patient was seen on 12/29/19. NOTE No acute events overnight. He is tolerating the clq diet. Denies nausea, emesis, fevers, or pain. VSSAF NAD abd - soft, NT, ND labs - below A) 84y/o male POD#1 s/p ERCP for choledocholithiasis P)reg diet ambulate monitor labs plan on d/c when medically stable and follow up with Dr. Rankin in the office in a couple weeks. Michale Tello DO VS,Xavi, I+O VS, Randybone, I+O Laboratory Tests 12/29/19 05:51 Vital Signs Date Time Temp Pulse Resp B/P (MAP) Pulse Ox O2 Delivery O2 Flow Rate FiO2 12/29/19 19:00 97.9 75 16 127/64 (85) 94 Nasal Cannula 2.0 I&O- Last 24 Hours up to 6 AM 12/29/19 06:00 Intake Total 1870 ml Output Total 300 ml Balance 1570 ml AMAYA TELLO DO Dec 29, 2019 20:53
[2019-12-29] MEDS: metroNIDAZOLE (FLAGYL) 500 MG TAB PO SCH (21:19)
[2019-12-29] MEDS: MAGNESIUM OXIDE 400 MG TAB (MAG-OX) PO SCH (21:19)
[2019-12-30] MEDS: SUCRALFATE SUSP 1GM/10ML UD PO SCH ×3 (05:17→21:18)
[2019-12-30] MEDS: metroNIDAZOLE (FLAGYL) 500 MG TAB PO SCH ×3 (05:17→21:18)
[2019-12-30] MEDS: CIPROFLOXACIN 500MG TABLET PO SCH ×2 (05:17→17:19)
[2019-12-30 06:00] VITALS: BP 145/75
[2019-12-30 06:04] LABS: HEMATOCRIT 39.9 % (42.0-52.0); HEMOGLOBIN 12.8 g/dl (13.5-17.5); MEAN CORPUSCULAR HEMOGLOBIN 30.8 pg (27.0-33.0); MEAN CORPUSCULAR HGB CONC 32.1 g/dl (32.0-36.5); MEAN CORPUSCULAR VOLUME 96.1 fl (80.0-96.0); RED BLOOD COUNT 4.15 10^6/uL (4.30-6.10); WHITE BLOOD COUNT 11.7 10^3/uL (4.0-10.0)
[2019-12-30 06:10] LABS: PLATELET COUNT, AUTOMATED 85 10^3/uL (150-450)
[2019-12-30 06:33] LABS: CALCIUM LEVEL 8.2 MG/DL (8.8-10.2); CREATININE FOR GFR 1.44 MG/DL (0.70-1.30); GLOMERULAR FILTRATION RATE 49.5 (>35); MAGNESIUM LEVEL 2.3 MG/DL (1.8-2.4); POTASSIUM SERUM 4.1 MEQ/L (3.5-5.1)
--- NOTE | 2019-12-30 07:08 | IPNPDOC ---
Text Note Date of Service The patient was seen on 12/30/19. NOTE No acute events overnight. He is tolerating the reg diet. Denies nausea, emesis, fevers, or pain. VSSAF NAD abd - soft, NT, ND labs - below A) 84y/o male POD#2 s/p ERCP for choledocholithiasis P)reg diet ambulate monitor labs plan on d/c when medically stable and follow up with Dr. Rankin in the office in a couple weeks. No further surgical intervention during this admission. Michael Tello DO VS,Edee, I+O VS, Fishbone, I+O Laboratory Tests 12/30/19 05:50 Vital Signs Date Time Temp Pulse Resp B/P (MAP) Pulse Ox O2 Delivery O2 Flow Rate FiO2 12/30/19 06:00 99.3 77 17 145/75 (98) 94 Nasal Cannula 2.0 I&O- Last 24 Hours up to 6 AM 12/30/19 06:00 Intake Total 2205 ml Output Total 1475 ml Balance 730 ml AMAYA TELLO DO Dec 30, 2019 07:08
[2019-12-30] MEDS ORDERED: FLAG500T PO (07:57)
[2019-12-30] MEDS ORDERED: CIPR-249 PO (07:57)
[2019-12-30] MEDS ORDERED: PANT40TA3 PO (07:57)
[2019-12-30] MEDS: GABAPENTIN 300 MG CAP PO SCH ×3 (08:42→21:18)
[2019-12-30] MEDS: TAMSULOSIN 0.4 MG CAP PO SCH (08:42)
[2019-12-30] MEDS: PANTOPRAZOLE 40MG TAB (PROTONIX) PO SCH ×2 (08:42→21:18)
[2019-12-30] MEDS: MULTIVITAMINS/MINERALS THERAP 1 TAB PO SCH (08:42)
[2019-12-30] MEDS: CALCIUM/VITAMIN D 500 MG TAB PO SCH (08:43)
[2019-12-30] MEDS: allopurinoL 300 MG TAB PO SCH (08:43)
--- NOTE | 2019-12-30 11:54 | IPNPDOC ---
Text Note Date of Service The patient was seen on 12/30/19. NOTE Subjective: -Afebrile, HDS, no complaints this morning just feels really tired -Tolerating regular diet Objective: Vitals signs: HDS, afebrile this AM General: Alert, No Acute Distress Eye: PERRLA, EOMI, anicteric ENT: MMM Neck: supple, no JVD Chest: CTAB Heart: RRR, no mrg Abdomen: Obese, normoactive bowel sounds,no TTP, negative Nunez's, no involuntary guarding or rebound Extremity:LLE s/p AKA, RLE without edema, WWP Skin: no noted rashes or lesions Neuro: Cranial Nerves 3-12 WNL, moving all extremities Psych: Mental status WNL, Oriented x 3 Labs: reviewed WBC down to 11.7 Hgb 12.8 Platelets 85 na 144 K4.1 mag 2.3 Cr downtrended to 1.44 Assessment: 84 yo man with a pertinent medical history of CAD s/p CABG, s/p PPP, HTN, HLD, gout, CKD3 with baseline Cr 1.3-1.9, history of a PE, TIA, abdominal hernia, history of GIB and L AKA who presented to the ED diffuse abdominal pain that was worst in the epigastrium a few hours after having a pizza dinner and found on imaging to have cholelithiasis and possible choledocholithiasis and an infrarenal AAA deemed incidental on empiric zosyn, who course was c/b fever and now s/p ERCP with stenting by GI now afebrile with downtrending leukocytosis, pending discharge home when PT appropriate. Abdominal pain: likely 2/2 choledocholithiasis and biliary colic, unlikely billy cholangitis per ERCP findings vs. less likely vascular in etiology despite AAA finding or gastritis. -continue cipro/flagyl PO for 4 more days -Had ERCP with Dr. 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 - GI recommending avoiding aspirin and NSAIDs, clear liquid diet for 1 day, then advance as tolerated to cardiac diet, and further evaluate to rule out other sources of sepsis. - f/u cytology results. - Patient to telephone GI clinic for pathology results in 2 weeks. - GI recommending repeat ERCP in 3 months to remove stent depending on the clinical course and consider elective cholecystectomy based on clinical course. - Outpatient GI scheduling info: Telephone GI clinic to schedule appointment in [facility] (address [address], [address], [place], [address]) in 4 -- 6 weeks. Please call GI clinic @ [phone] for appointment date and time. -general surgery consulted, recommended GI's involvement for ERCP, to follow up outpatient with Dr. Rankin, appreciate recs -Vascular surgery consulted for AAA, appreciate recs, to have follow up imaging in 3months -pain resolved -PPI daily, PO -sucralfate TID Worsening acute on chronic thrombocytopenia: Likely reactive in the setting of infection and acute inflammation -monitor. -TEDs and SCDs BPH -flomax chronic pain -continue home gabapentin CAD s/p CABG: -Had GIB associated with ASA use, monitor -EKG was non ischemic and troponin negative and without chest pain. Gout -allopurinol CKD3: at baseline -monitor BMP daily -avoid nephrotoxins Oscal D Multivitamin DVT ppx: DMITRI and SCD Dispo: pending PT/ot recs, not safe for home discharge at this time. VS,Fishbone, I+O VS, Fishbone, I+O Laboratory Tests 12/30/19 05:50 Vital Signs Date Time Temp Pulse Resp B/P (MAP) Pulse Ox O2 Delivery O2 Flow Rate FiO2 12/30/19 06:00 99.3 77 17 145/75 (98) 94 Nasal Cannula 2.0 I&O- Last 24 Hours up to 6 AM 12/30/19 05:59 Intake Total 2205 ml Output Total 1475 ml Balance 730 ml SABRINA PAULA MD Dec 30, 2019 07:55
[2019-12-30 14:00] VITALS: BP 155/70
[2019-12-30] MEDS: ACETAMINOPHEN TAB 650MG DOSE (2X325MG) PO PRN (14:18)
[2019-12-30] MEDS: MAGNESIUM OXIDE 400 MG TAB (MAG-OX) PO SCH (21:17)
[2019-12-30 22:00] VITALS: BP 120/51
[2019-12-30 22:19] VITALS: O2SAT 94
[2019-12-31] MEDS: SUCRALFATE SUSP 1GM/10ML UD PO SCH ×3 (05:03→20:59)
[2019-12-31] MEDS: CIPROFLOXACIN 500MG TABLET PO SCH ×2 (05:03→17:45)
[2019-12-31] MEDS: metroNIDAZOLE (FLAGYL) 500 MG TAB PO SCH ×3 (05:03→20:59)
[2019-12-31 05:57] LABS: HEMATOCRIT 40.1 % (42.0-52.0); HEMOGLOBIN 12.8 g/dl (13.5-17.5); MEAN CORPUSCULAR HEMOGLOBIN 30.7 pg (27.0-33.0); MEAN CORPUSCULAR HGB CONC 31.9 g/dl (32.0-36.5); MEAN CORPUSCULAR VOLUME 96.2 fl (80.0-96.0); PLATELET COUNT, AUTOMATED 101 10^3/uL (150-450); RED BLOOD COUNT 4.17 10^6/uL (4.30-6.10); WHITE BLOOD COUNT 9.5 10^3/uL (4.0-10.0)
[2019-12-31 06:00] VITALS: BP 150/72
[2019-12-31 06:12] LABS: CALCIUM LEVEL 8.1 MG/DL (8.8-10.2); CREATININE FOR GFR 1.36 MG/DL (0.70-1.30); GLOMERULAR FILTRATION RATE 52.9 (>35); POTASSIUM SERUM 3.9 MEQ/L (3.5-5.1)
[2019-12-31] MEDS: CALCIUM/VITAMIN D 500 MG TAB PO SCH (10:56)
[2019-12-31] MEDS: MULTIVITAMINS/MINERALS THERAP 1 TAB PO SCH (10:56)
[2019-12-31] MEDS: TAMSULOSIN 0.4 MG CAP PO SCH (10:56)
[2019-12-31] MEDS: OMEGA-3 1000MG CAPSULE PO SCH (10:56)
[2019-12-31] MEDS: allopurinoL 300 MG TAB PO SCH (10:56)
[2019-12-31 10:57] VITALS: BP 135/63
[2019-12-31] MEDS: GABAPENTIN 300 MG CAP PO SCH ×3 (10:57→20:59)
[2019-12-31] MEDS: ACETAMINOPHEN TAB 650MG DOSE (2X325MG) PO PRN ×2 (10:57→17:53)
[2019-12-31] MEDS: PANTOPRAZOLE 40MG TAB (PROTONIX) PO SCH ×2 (10:57→20:59)
[2019-12-31 14:00] VITALS: BP 134/63; O2SAT 95
--- NOTE | 2019-12-31 17:10 | IPNPDOC ---
Text Note Date of Service The patient was seen on 12/31/19. NOTE Subjective: -Afebrile, HDS, some abdominal pain, feels tired -Tolerating regular diet Objective: Vitals signs: HDS, afebrile this AM General: Alert, No Acute Distress Eye: PERRLA, EOMI, anicteric ENT: MMM Neck: supple, no JVD Chest: CTAB Heart: RRR, no mrg Abdomen: Obese, normoactive bowel sounds,diffuse mild TTP, negative Nunez's, no involuntary guarding or rebound Extremity:LLE s/p AKA, RLE without edema, WWP Skin: no noted rashes or lesions Neuro: Cranial Nerves 3-12 WNL, moving all extremities Psych: Mental status WNL, Oriented x 3 Labs: reviewed WBC down to 9.5 Hgb 12.8 Platelets 101 na 144 K3.9 Cr downtrended to 1.36 Assessment: 84 yo man with a pertinent medical history of CAD s/p CABG, s/p PPP, HTN, HLD, gout, CKD3 with baseline Cr 1.3-1.9, history of a PE, TIA, abdominal hernia, history of GIB and L AKA who presented to the ED diffuse abdominal pain that was worst in the epigastrium a few hours after having a pizza dinner and found on imaging to have cholelithiasis and possible choledocholithiasis and an infrarenal AAA deemed incidental on empiric zosyn, who course was c/b fever and now s/p ERCP with stenting by GI now afebrile with downtrending leukocytosis, with course now c/b physical deconditioning and mild hypoxemia. Abdominal pain: likely 2/2 choledocholithiasis and biliary colic, unlikely billy cholangitis per ERCP findings vs. less likely vascular in etiology despite AAA finding or gastritis. -continue cipro/flagyl PO, day 4. For 7 day course. -Had ERCP with Dr. 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 - GI recommending avoiding aspirin and NSAIDs, clear liquid diet for 1 day, then advance as tolerated to cardiac diet, and further evaluate to rule out other sources of sepsis. - f/u cytology results. - Patient to telephone GI clinic for pathology results in 2 weeks. - GI recommending repeat ERCP in 3 months to remove stent depending on the clinical course and consider elective cholecystectomy based on clinical course. - Outpatient GI scheduling info: Telephone GI clinic to schedule appointment in [facility] (address [address], [address], [place], [facility]) in 4 -- 6 weeks. Please call GI clinic @ [phone] for appointment date and time. -general surgery consulted, recommended GI's involvement for ERCP, to follow up outpatient with Dr. Rankin, appreciate recs -Vascular surgery consulted for AAA, appreciate recs, to have follow up imaging in 3months -PPI daily, PO -sucralfate TID Hypoxemic respiratory failure: likely 2/2 atelectasis in the setting of physical deconditioning and possible mild pulmonary edema s/p some fluids at admission -Incentive spirometry -PT/OT -otherwise euvolemic on exam acute on chronic thrombocytopenia: Likely reactive in the setting of infection and acute inflammation, now improving. -monitor. -TEDs and SCDs BPH -flomax chronic pain -continue home gabapentin CAD s/p CABG: -Had GIB associated with ASA use, monitor -EKG was non ischemic and troponin negative and without chest pain. Gout -allopurinol CKD3: at baseline -monitor BMP daily -avoid nephrotoxins Oscal D Multivitamin DVT ppx: DMITRI and SCDs Dispo: pending PT/OT recs, likely some rehabilitation. VS,Fishbone, I+O VS, Fishbone, I+O Laboratory Tests 12/31/19 05:25 Vital Signs Date Time Temp Pulse Resp B/P (MAP) Pulse Ox O2 Delivery O2 Flow Rate FiO2 12/31/19 14:00 99.2 74 19 134/63 (86) 95 Nasal Cannula 2.0 I&O- Last 24 Hours up to 6 AM 12/31/19 05:59 Intake Total 1080 ml Output Total 300 ml Balance 780 ml SABRINA PAULA MD Dec 31, 2019 17:09
[2019-12-31] MEDS: MAGNESIUM OXIDE 400 MG TAB (MAG-OX) PO SCH (20:58)
[2019-12-31 22:00] VITALS: BP 132/65
[2020-01-01 01:28] VITALS: O2SAT 95
[2020-01-01] MEDS: ACETAMINOPHEN TAB 650MG DOSE (2X325MG) PO PRN ×2 (03:11→14:16)
[2020-01-01] MEDS: CIPROFLOXACIN 500MG TABLET PO SCH ×2 (05:20→17:17)
[2020-01-01] MEDS: SUCRALFATE SUSP 1GM/10ML UD PO SCH ×2 (05:20→14:12)
[2020-01-01] MEDS: metroNIDAZOLE (FLAGYL) 500 MG TAB PO SCH ×2 (05:20→14:12)
[2020-01-01 06:00] VITALS: BP 130/65
[2020-01-01 06:10] LABS: HEMATOCRIT 40.8 % (42.0-52.0); HEMOGLOBIN 13.3 g/dl (13.5-17.5); MEAN CORPUSCULAR HEMOGLOBIN 30.5 pg (27.0-33.0); MEAN CORPUSCULAR HGB CONC 32.6 g/dl (32.0-36.5); MEAN CORPUSCULAR VOLUME 93.6 fl (80.0-96.0); PLATELET COUNT, AUTOMATED 107 10^3/uL (150-450); RED BLOOD COUNT 4.36 10^6/uL (4.30-6.10); WHITE BLOOD COUNT 8.8 10^3/uL (4.0-10.0)
[2020-01-01 06:17] LABS: BLOOD UREA NITROGEN 21 MG/DL (7-18); CALCIUM LEVEL 8.1 MG/DL (8.8-10.2); CARBON DIOXIDE LEVEL 25 MEQ/L (21-32); CHLORIDE LEVEL 111 MEQ/L (98-107); GLOMERULAR FILTRATION RATE > 60.0 (>35); GLUCOSE, FASTING 79 MG/DL (70-100); MAGNESIUM LEVEL 1.9 MG/DL (1.8-2.4); POTASSIUM SERUM 3.7 MEQ/L (3.5-5.1); SODIUM LEVEL 141 MEQ/L (136-145)
[2020-01-01] MEDS: TAMSULOSIN 0.4 MG CAP PO SCH (09:12)
[2020-01-01] MEDS: GABAPENTIN 300 MG CAP PO SCH ×2 (09:12→12:21)
[2020-01-01] MEDS: MULTIVITAMINS/MINERALS THERAP 1 TAB PO SCH (09:12)
[2020-01-01] MEDS: PANTOPRAZOLE 40MG TAB (PROTONIX) PO SCH (09:12)
[2020-01-01] MEDS: CALCIUM/VITAMIN D 500 MG TAB PO SCH (09:12)
[2020-01-01] MEDS: allopurinoL 300 MG TAB PO SCH (09:12)
[2020-01-01 14:00] VITALS: BP 136/67
[2020-01-01] MEDS ORDERED: MAALOX 30 ML SUSP *UDC PO PRN (17:00)
--- NOTE | 2020-01-01 17:07 | DS.PDOC ---
Discharge Summary General Date of Admission Dec 27, 2019 at 07:30 Date of Discharge 01/01/20 Discharge Summary PROCEDURES PERFORMED DURING STAY: [None]. ADMITTING DIAGNOSES: Abdominal pain choledocholithiasis biliary colic Hypoxemic respiratory failure physical deconditioning acute on chronic thrombocytopenia BPH chronic pain CAD s/p CABG: Gout CKD3 DISCHARGE DIAGNOSES: Abdominal pain choledocholithiasis biliary colic Hypoxemic respiratory failure physical deconditioning acute on chronic thrombocytopenia BPH chronic pain CAD s/p CABG: Gout CKD3 COMPLICATIONS/CHIEF COMPLAINT: Abdominal Aortic Aneurysm Without Rupture. HISTORY OF PRESENT ILLNESS: 84 yo man with a pertinent medical history of CAD s/p CABG, s/p PPP, HTN, HLD, gout, CKD3 with baseline Cr 1.3-1.9, history of a PE, TIA, abdominal hernia, history of GIB and L AKA who presented to the ED diffuse abdominal pain that was worst in the epigastrium a few hours after having a pizza dinner and found on imaging to have cholelithiasis and possible choledocholithiasis and an infrarenal AAA deemed incidental on empiric zosyn, who course was c/b fever and now s/p ERCP with stenting by GI now afebrile with downtrending leukocytosis, with course now c/b physical deconditioning and mild hypoxemia. HOSPITAL COURSE: During hospital stay following issue addressed Abdominal pain: likely 2/2 choledocholithiasis and biliary colic, unlikely billy cholangitis per ERCP findings vs. less likely vascular in etiology despite AAA finding or gastritis. -continue cipro/flagyl For 7 day course. -Had ERCP with Dr. 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 - GI recommending avoiding aspirin and NSAIDs, clear liquid diet for 1 day, then advance as tolerated to cardiac diet, and further evaluate to rule out other sources of sepsis. - f/u cytology results. - Patient to telephone GI clinic for pathology results in 2 weeks. - GI recommending repeat ERCP in 3 months to remove stent depending on the clinical course and consider elective cholecystectomy based on clinical course. - Outpatient GI scheduling info: Telephone GI clinic to schedule appointment in [facility] (address [address], [address], [place] [address]) in 4 -- 6 weeks. Please call GI clinic @ [phone] for appointment date and time. -general surgery consulted, recommended GI's involvement for ERCP, to follow up outpatient with Dr. Rankin, appreciate recs -Vascular surgery consulted for AAA, appreciate recs, to have follow up imaging in 3months -PPI daily, PO -sucralfate TID Hypoxemic respiratory failure: likely 2/2 atelectasis in the setting of physical deconditioning and possible mild pulmonary edema s/p some fluids at admission -Incentive spirometry -PT/OT -otherwise euvolemic on exam acute on chronic thrombocytopenia: Likely reactive in the setting of infection and acute inflammation, now improving. -monitor. -TEDs and SCDs BPH -flomax chronic pain -continue home gabapentin CAD s/p CABG: -Had GIB associated with ASA use, monitor -EKG was non ischemic and troponin negative and without chest pain. Gout -allopurinol CKD3: at baseline -monitor BMP daily -avoid nephrotoxins DISCHARGE MEDICATIONS: Please see below. ALLERGIES: Please see below. PHYSICAL EXAMINATION ON DISCHARGE: VITAL SIGNS: Please see below. General: Alert, No Acute Distress Eye: PERRLA, EOMI, anicteric ENT: MMM Neck: supple, no JVD Chest: CTAB Heart: RRR, no mrg Abdomen: Obese, normoactive bowel sounds,diffuse mild TTP, negative Nunez's, no involuntary guarding or rebound Extremity:LLE s/p AKA, RLE without edema, WWP Skin: no noted rashes or lesions Neuro: Cranial Nerves 3-12 WNL, moving all extremities Psych: Mental status WNL, Oriented x 3 LABORATORY DATA: Please see below. IMAGING:C-ARM VIEWS DURING ERCP: Multiple C-arm views are performed during ERCP. Contrast is injected into the common bile duct, which appears mildly dilated at 11 mm. Some contrast extends into the gallbladder which demonstrates multiple filling defects, consistent with gallstones. I do not see a definite filling defect or focal stricture in the common bile duct. A stent is placed in the distal common bile duct. 34 seconds fluoroscopy time utilized. PROGNOSIS: Fair ACTIVITY: [As tolerated]. DIET: Cardiac DISCHARGE PLAN: ARU DISCHARGE INSTRUCTIONS: - Await cytology results. - Telephone GI clinic for pathology results in 2 weeks. - Repeat ERCP in 3 months to remove stent depending on the clinical course.. Consider elective cholscystectomy based on clinical course. - Telephone GI clinic to schedule appointment in [facility] (address [address], [address], [place], [facility]) in 4 -- 6 weeks. Please call GI clinic @ [phone] for appointment date and time. - Return to primary care physician DISCHARGE CONDITION: [Stable]. TIME SPENT ON DISCHARGE: Greater than 20 minutes. Vital Signs/I&Os Vital Signs Date Time Temp Pulse Resp B/P (MAP) Pulse Ox O2 Delivery O2 Flow Rate FiO2 01/01/20 14:00 98.5 80 16 136/67 (90) 92 Nasal Cannula 2.0 I&O- Last 24 Hours up to 6 AM 01/01/20 06:00 Intake Total 1200 ml Output Total 400 ml Balance 800 ml Laboratory Data Labs 24H Laboratory Tests 2 01/01/20 05:28: Nucleated Red Blood Cells % (auto) 0.0, Anion Gap 5L, Glomerular Filtration Rate > 60.0, Calcium Level 8.1L, Magnesium Level 1.9 CBC/BMP Laboratory Tests 01/01/20 05:28 Microbiology Microbiology 12/28/19 Respiratory Virus Panel (PCR) ([facility]) - Final, Complete 12/27/19 Blood Culture - Preliminary, Resulted No Growth after 72 hours. All specime... Discharge Medications Scheduled Allopurinol (Zyloprim) 300 Mg Tablet, 300 MG PO DAILY, (Reported) Calcium Carbonate/Vitamin D3 (Calcium 600-Vit D3 200 Tablet) 1 Each Tablet, 2 TAB PO DAILY, (Reported) Ciprofloxacin HCl (Cipro) 500 Mg Tablet, 500 MG PO BID@18 Famotidine (Famotidine) 20 Mg Tablet, 20 MG PO DAILY, (Reported) Fish Oil/Borage/Flax/Om3,6,9 1 ([place] 3-6-9 Complex Softgel) 400 Mg Capsule, 1 CAP PO 2XW, (Reported) Gabapentin (Gabapentin) 300 Mg Capsule, 600 MG PO BID, (Reported) AM/HS Gabapentin (Gabapentin) 300 Mg Capsule, 300 MG PO DAILY, (Reported) TAKES AT NOON Magnesium Oxide (Magnesium Oxide) 400 Mg Tablet, 400 MG PO QHS, (Reported) Melatonin (Melatonin) 10 Mg Capsule, 10 MG PO QHS, (Reported) Metronidazole (Flagyl) 500 Mg Tablet, 500 MG PO Q8H Multivitamins (Thera M Plus Tablet) 1 Each Tablet, 1 TAB PO DAILY, (Reported) Pantoprazole Sodium (Pantoprazole Sodium) 40 Mg Tablet.dr, 40 MG PO DAILY Tamsulosin HCl (Flomax) 0.4 Mg Capsule, 0.4 MG PO DAILY, (Reported) Scheduled PRN Meclizine HCl (Meclizine HCl) 25 Mg Tablet, 25 MG PO TID PRN for DIZZINESS, (Reported) Miscellaneous Medications [Med Rec Comment] , (Reported) ALL MEDICATIONS VERIFIED WITH PCP OFFICE Allergies Coded Allergies: aspirin (Verified Allergy, Unknown, 08/31/19) atorvastatin (Verified Allergy, Unknown, 08/31/19) latex (Verified Allergy, Unknown, 08/31/19) rosuvastatin (Verified Allergy, Unknown, 08/31/19) tetracycline (Verified Allergy, Unknown, 08/31/19) ASHLIE MCKEON DO Jan 01, 2020 17:07
== END 2020-01-01 17:24 | DRG 444 ==
LOC: EDBD 01:44 → M ED 01:44 → M ED INP 07:30 → ENRESERV 07:48 → M MSPAV 09:07
PROVIDERS: ADMIT Internal Medicine; ATTEND Internal Medicine
PROC: 0F798DZ Dilation of Common Bile Duct with Intraluminal Device, Via Natural or Artificial Opening Endoscopic (ICD-10-PCS; 2019-12-28)
PROC: 0FB98ZX Excision of Common Bile Duct, Via Natural or Artificial Opening Endoscopic, Diagnostic (ICD-10-PCS; 2019-12-28)
PROC: 0FC98ZZ Extirpation of Matter from Common Bile Duct, Via Natural or Artificial Opening Endoscopic (ICD-10-PCS; principal; 2019-12-28 11:13)
DX: K80.33 Calculus of bile duct with acute cholangitis with obstruction (principal); J96.91 Respiratory failure, unspecified with hypoxia; I25.10 Atherosclerotic heart disease of native coronary artery without angina pectoris; I12.9 Hypertensive chronic kidney disease with stage 1 through stage 4 chronic kidney disease, or unspecified chronic kidney disease; Z86.711 Personal history of pulmonary embolism; M10.9 Gout, unspecified; N18.3 Chronic kidney disease, stage 3 (moderate); K44.9 Diaphragmatic hernia without obstruction or gangrene; E78.5 Hyperlipidemia, unspecified; N40.0 Benign prostatic hyperplasia without lower urinary tract symptoms; G89.29 Other chronic pain; D69.6 Thrombocytopenia, unspecified; Z86.73 Personal history of transient ischemic attack (TIA), and cerebral infarction without residual deficits; Z89.612 Acquired absence of left leg above knee; Z95.0 Presence of cardiac pacemaker; Z88.6 Allergy status to analgesic agent; Z88.1 Allergy status to other antibiotic agents; Z88.8 Allergy status to other drugs, medicaments and biological substances; Z91.040 Latex allergy status; Z79.899 Other long term (current) drug therapy; Z87.19 Personal history of other diseases of the digestive system; Z11.59 Encounter for screening for other viral diseases

== ENCOUNTER 2020-01-01 15:17 | Inpatient (IN) | payer MEDICARE ==
[~2020-01-01] VITALS: Ht 172.7 cm; Wt 69.7 kg
[~2020-01-01 15:17] MED LIST changes: +CALC600T57 PO; +CALCTAB54 PO; +CIPR-249 PO; +CVS10CAP7 PO; +FAMO20TA PO; +FLAG500T PO; +FLOM0.4C39 PO; +GABA-843 PO; +GNP250TA9 PO; +MAGN400T2 PO; +MECL-86 PO; +MED REC COMMENT; +MELA2.5C3 PO; +OMEGCAP9 PO; +PANT40TA3 PO; +VITMTA PO; +ZYLO300T6 PO; +[UNRECOGNIZED DRUG - CODE]
[2020-01-01 17:40] VITALS: BP 166/84
[2020-01-01] MEDS ORDERED: MECLIZINE 25 MG TABLET PO PRN (17:45)
[2020-01-01] MEDS ORDERED: BISACODYL 10 MG SUPP PR PRN (17:45)
[2020-01-01] MEDS ORDERED: MAALOX 30 ML SUSP *UDC PO PRN (17:45)
[2020-01-01] MEDS ORDERED: BISACODYL 5 MG TAB PO PRN (17:45)
[2020-01-01] MEDS ORDERED: MAALOX 30 ML SUSP *UDC PO ONE (17:45)
[2020-01-01] MEDS: LACTOBACILLUS ACIDOPHILUS CAP (BACID) PO SCH ×2 (18:50→21:31)
[2020-01-01 19:23] LABS: CK-MB VALUE MASS 1.2 NG/ML (<3.6); MB/CK RELATIVE INDEX 3.75 (< OR =4); TROPONIN I 0.05 NG/ML (< 0.10)
[2020-01-01 20:30] VITALS: BP 142/70
[2020-01-01] MEDS: GABAPENTIN 300 MG CAP PO SCH (21:32)
[2020-01-01] MEDS: MAGNESIUM OXIDE 400 MG TAB (MAG-OX) PO SCH (21:32)
[2020-01-01] MEDS: SENNA 8.6 MG TAB (SENOKOT) PO SCH (21:32)
[2020-01-01] MEDS: SUCRALFATE 1 GM TAB PO SCH (21:32)
[2020-01-01] MEDS: PANTOPRAZOLE 40MG TAB (PROTONIX) PO SCH (21:32)
[2020-01-01] MEDS: DOCUSATE SODIUM 100 MG CAP PO SCH (21:32)
[2020-01-01] MEDS: metroNIDAZOLE (FLAGYL) 500 MG TAB PO SCH (21:32)
[2020-01-01] MEDS: REMEDY PHYTOPLEX Z-GUARD PASTE 113GM TUBE (FROM STOREROOM PRODUCT) TOP SCH (21:39)
[2020-01-01] MEDS: ACETAMINOPHEN TAB 650MG DOSE (2X325MG) PO PRN (21:49)
[2020-01-01] MEDS: HEPARIN SOD (PORCINE) 5000UNITS/ML VIAL (J1644 PER 1000UNITS) SC SCH (21:50)
--- NOTE | 2020-01-02 00:33 | REPVR ---
PROCEDURE INFORMATION: Exam: US Duplex Lower Extremity Veins, Bilateral Exam date and time: 01/01/2020 12:15 AM Age: 84 years old Clinical indication: Pain; Leg, upper; Right; Prior surgery; Surgery date: 6+ months; Surgery type: Patient states veins removed from leg of open heart surgery; Additional info: Immobility TECHNIQUE: Imaging protocol: Real-time duplex ultrasound of the extremities with 2-D mckeon scale, color Doppler flow and spectral waveform analysis with image documentation. Complete exam focused on the bilateral lower extremity veins. COMPARISON: No relevant prior studies available. FINDINGS: Right deep veins: Unremarkable. The common femoral, femoral, proximal profunda femoral and popliteal veins are patent without thrombus. Normal Doppler waveforms. Normal compressibility and/or augmentation response. Right superficial veins: Saphenofemoral junction is patent without thrombus. Left deep veins: Amputated midthigh. The common femoral, femoral, proximal profunda femoral veins are patent without thrombus. Normal Doppler waveforms. Normal compressibility and/or augmentation response. Left superficial veins: Saphenofemoral junction is patent without thrombus. Soft tissues: Unremarkable. IMPRESSION: No evidence of deep vein thrombosis. Electronically signed by: Edson Gardiner On 01/02/2020 00:32:45 AM
[2020-01-02] MEDS: ACETAMINOPHEN TAB 650MG DOSE (2X325MG) PO PRN ×2 (04:30→08:09)
[2020-01-02] MEDS: metroNIDAZOLE (FLAGYL) 500 MG TAB PO SCH ×3 (05:25→21:43)
[2020-01-02] MEDS: HEPARIN SOD (PORCINE) 5000UNITS/ML VIAL (J1644 PER 1000UNITS) SC SCH ×3 (05:25→21:46)
[2020-01-02] MEDS: CIPROFLOXACIN 500MG TABLET PO SCH ×2 (05:25→17:09)
[2020-01-02 06:15] VITALS: BP 153/67
[2020-01-02 06:46] LABS: BASO % 0.3 % (0.0-1.0); EOS # 0.2 10^3/uL (0.0-0.5); EOS % 1.7 % (0.0-3.0); HEMATOCRIT 40.5 % (42.0-52.0); HEMOGLOBIN 13.3 g/dl (13.5-17.5); LYMPH # 0.9 10^3/uL (1.5-5.0); LYMPH % 10.7 % (24.0-44.0); MEAN CORPUSCULAR HEMOGLOBIN 30.6 pg (27.0-33.0); MEAN CORPUSCULAR HGB CONC 32.8 g/dl (32.0-36.5); MEAN CORPUSCULAR VOLUME 93.1 fl (80.0-96.0); MONO % 11.4 % (0.0-5.0); NEUTROPHILS # 6.5 10^3/uL (1.5-8.5); NEUTROPHILS % 75.6 % (36.0-66.0); PLATELET COUNT, AUTOMATED 128 10^3/uL (150-450); RED BLOOD COUNT 4.35 10^6/uL (4.30-6.10); WHITE BLOOD COUNT 8.6 10^3/uL (4.0-10.0)
[2020-01-02 07:19] LABS: ALBUMIN 2.5 GM/DL (3.2-5.2); ALT/SGPT 18 U/L (12-78); BILIRUBIN,TOTAL 0.8 MG/DL (0.2-1.0); BLOOD UREA NITROGEN 15 MG/DL (7-18); CALCIUM LEVEL 8.1 MG/DL (8.8-10.2); CARBON DIOXIDE LEVEL 25 MEQ/L (21-32); CHLORIDE LEVEL 106 MEQ/L (98-107); CREATININE FOR GFR 1.05 MG/DL (0.70-1.30); GLOMERULAR FILTRATION RATE > 60.0 (>35); GLUCOSE, FASTING 86 MG/DL (70-100); POTASSIUM SERUM 3.6 MEQ/L (3.5-5.1); SODIUM LEVEL 138 MEQ/L (136-145); TOTAL PROTEIN 5.1 GM/DL (6.4-8.2)
[2020-01-02] MEDS: DOCUSATE SODIUM 100 MG CAP PO SCH ×2 (08:04→21:00)
[2020-01-02] MEDS: LACTOBACILLUS ACIDOPHILUS CAP (BACID) PO SCH ×4 (08:08→21:43)
[2020-01-02] MEDS: CALCIUM/VITAMIN D 500 MG TAB PO SCH (08:08)
[2020-01-02] MEDS: GABAPENTIN 300 MG CAP PO SCH ×3 (08:08→21:42)
[2020-01-02] MEDS: MULTIVITAMINS/MINERALS THERAP 1 TAB PO SCH (08:08)
[2020-01-02] MEDS: SUCRALFATE 1 GM TAB PO SCH ×4 (08:08→21:42)
[2020-01-02] MEDS: allopurinoL 300 MG TAB PO SCH (08:08)
[2020-01-02] MEDS: REMEDY PHYTOPLEX Z-GUARD PASTE 113GM TUBE (FROM STOREROOM PRODUCT) TOP SCH ×3 (08:09→21:45)
[2020-01-02] MEDS: PANTOPRAZOLE 40MG TAB (PROTONIX) PO SCH ×2 (08:09→21:42)
[2020-01-02] MEDS: TAMSULOSIN 0.4 MG CAP PO SCH (08:09)
[2020-01-02 14:00] VITALS: BP 150/90
--- NOTE | 2020-01-02 15:13 | HPEPDOC ---
Workers Compensation Coordinator Note DATE OF ADMISSION: 01-01-20 DATE OF SERVICE: 01-02-20 TIME OF ADMISSION: Please refer to physician's admission order. 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 He was noted to have gallstones with possible choledocholithiasis and was started on empiric antibiotics and made NPO. There was an incidental finding of an Fusiform abdominal aortic aneurysm measuring 3.3 cm which vascular surgery did not recommend surgical intervention. His leukocytosis improved and he underwent an ERCP on 12-28-19 with GI and was instructed to avoid NSAIDs and aspirin and have follow-up ERCP in 3 months. He had episodes of chest pain with negative cardiac enzymes thought to be GI in etiology. He was evaluated by therapy, found to have impairments in mobility and ADLs and deemed medically appropriate for discharge to ARU on 01-01-20. REVIEW OF SYSTEMS: The following is a completed review of systems and has been reviewed. Review of systems otherwise unremarkable. PAIN: Patient self reports no pain EYES: No recent vision changes EARS, NOSE, & THROAT: No throat pain, or dysphagia, or rhinorrhea CARDIOVASCULAR: Denies chest pain or palpitations PULMONARY: Denies shortness of breath GASTROINTESTINAL: Denies constipation/diarrhe GENITOURINARY: denies dysuria MUSCULOSKELETAL: left AKA NEUROLOGICAL:no tremor or paresthesias HEMATOLOGICAL: denies easy bruising SKIN: no rash PSYCHIATRIC: Unremarkable All other review of systems found to be negative. PAST MEDICAL HISTORY: as per HPI PAST SURGICAL HISTORY: CABG, PM, Abdominal hernia repair, left lobectomy ALLERGIES: Please see below. MEDICATIONS: Please see below. SOCIAL HISTORY: No etoh/illicit drugs/smoking DIET:clear liquid PHYSICAL EXAMINATION: VITAL SIGNS: Please see below. GENERAL: Pleasant and cooperative. No acute distress. HEENT: PERRL. Extraocular movements intact. Clear conjunctiva CARDIOVASCULAR: Regular rate and rhythm. No murmurs, rubs, or gallops, +PM LUNGS: Clear to auscultation bilaterally. No wheezes. No rhonchi ABDOMEN: Soft, nontender, mildly distended, distended. Positive bowel sounds. no guarding NEUROLOGICAL: Alert and oriented times three. Cranial nerves II through XII grossly intact. Sensation grossly intact] EXTREMITIES: 5\5 strength bilateral upper extremities. 5\5 strength right lower extremity. 5/5 strength in left hip flexors. SKIN: no sacral erythema LABORATORY DATA: Please see below. IMAGING: Imaging documentation personally reviewed by record FUNCTIONAL STATUS: Premorbid: Mod-Independent with all activities of daily life as well as mobility On Admission: standby-contact guard 40 feet, contact guard for functional transfers and bed mobility, Mod-assist for standing balance to don prosthesis GOALS: Mod-I household distances with ambulation, stairs, dressing, toileting, bathing ASSESSMENT:84-year-old M with past medical history of CAD, left AKA who presents status post ERCP for sepsis in setting of choledocholithiasis PLAN: 1. Rehab- PT/OT advance agit and ADLs, strengthen/stretch/maintain ROM all 4 limbs 2. Ortho- s/p left AKA which is chronic 3-CArdiac- hx of CAD s/p CABG, avoid ASA at this time per GI recs, medicine consulted to assist in management -patient with episode of chest pain upon admission to ARU- relieved with maalox, cardiac enzymes negative 4. GI s/p ERCP for choledocholithiasis with sepsis which is improving c/u Cipro and Flagyl for intraabdominal infection -c/u protonix and sucralfate -will add sucralfate -f/u GI cytology results, f/u ERCP in 3 months, consider elective cholecystectomy 5. Resp- c/u supplemental 02 prn, monitor for infection 6. Pain- c/u gabapentin and tylenol prn 7. DVT ppx- heparin and teds 8. - c/u flomax, monitor PVRs 9. Psych- trazodone for insomnia 10. DIspo- TBD POST ADMISSION PHYSICIAN EVALUATION: Medical and functional status: Description of medical status, medical assessment: As above. Rehabilitation diagnosis and current and prior cold morbid medical conditions as above. Risk of complications and plans to mitigate them as above. Description of functional status current status is as above. Prior status as above. Status compared to preadmission: There are no clinically significant differences between the patient's current status and the information described on the preadmission screening document. Treatment plan anticipated: Treatment plan is as described above. Required disciplines including physical therapy, occupational therapy, others as noted above. Intensity of services: 3 hours a day, 6 days a week. Special considerations: There are no specific special or safety considerations that would likely preclude immediate implementation of an intensive rehabilitation program or subsequently influence the plan of care. ATTESTATION: Considering all the information above, it is my best judgment that this patient requires intensive rehabilitation therapy as described above and an inpatient hospital environment due to the complexity of nursing, medical, and rehabilitation needs required by the patient. Furthermore, this patient can reasonably be expected to participate in an benefit from an inpatient rehabilitation stay with an interdisciplinary team approach to the delivery of rehabilitation care under the direction and supervision of rehabilitation physician. PROGNOSIS: Excellent. ESTIMATED LENGTH OF STAY:7-10 days. PROJECTED DISCHARGE DESTINATION: Home with family support and any durable medical equipment required to increase functional safety and mobility. TIME SPENT COUNSELING AND COORDINATING INITIAL CARE: Greater than 70 minutes. Vital Signs Vital Sign - Last 24 Hours 01/01/20 01/01/20 01/01/20 01/02/20 17:40 20:30 21:58 06:15 Temp 98.4 97.5 98.0 Pulse 80 76 79 Resp 18 16 16 B/P (MAP) 166/84 (111) 142/70 (94) 153/67 (95) Pulse Ox 96 96 93 O2 Delivery Nasal Cannula Nasal Cannula Room Air O2 Flow Rate 1.0 2.0 2.0 01/02/20 14:00 Temp 97.5 Pulse 89 Resp 18 B/P (MAP) 150/90 (110) Pulse Ox 94 O2 Delivery Room Air Laboratory Data CBC/BMP Laboratory Tests 01/02/20 06:18 Labs 24H Laboratory Tests 2 01/01/20 18:18: Total Creatine Kinase 32L, Creatine Kinase MB 1.2, Creatine Kinase MB Relative Index 3.75, Troponin I 0.05 01/02/20 06:18: Immature Granulocyte % (Auto) 0.3, Neutrophils (%) (Auto) 75.6H, Lymphocytes (%) (Auto) 10.7L, Monocytes (%) (Auto) 11.4H, Eosinophils (%) (Auto) 1.7, Basophils (%) (Auto) 0.3, Neutrophils # (Auto) 6.5, Lymphocytes # (Auto) 0.9L, Monocytes # (Auto) 1.0H, Eosinophils # (Auto) 0.2, Basophils # (Auto) 0.0, Nucleated Red Blood Cells % (auto) 0.0, Anion Gap 7L, Glomerular Filtration Rate > 60.0, Calcium Level 8.1L, Total Bilirubin 0.8, Aspartate Amino Transf (AST/SGOT) 20, Alanine Aminotransferase (ALT/SGPT) 18, Alkaline Phosphatase 56, Total Protein 5.1L, Albumin 2.5L, Albumin/Globulin Ratio 1.0 Home Medications Scheduled Allopurinol (Zyloprim) 300 Mg Tablet, 300 MG PO DAILY, (Reported) Calcium Carbonate/Vitamin D3 (Calcium 600-Vit D3 200 Tablet) 1 Each Tablet, 2 TAB PO DAILY, (Reported) Ciprofloxacin HCl (Cipro) 500 Mg Tablet, 500 MG PO BID@06,18 Famotidine (Famotidine) 20 Mg Tablet, 20 MG PO DAILY, (Reported) Fish Oil/Borage/Flax/Om3,6,9 1 ([place] 3-6-9 Complex Softgel) 400 Mg Capsule, 1 CAP PO 2XW, (Reported) Gabapentin (Gabapentin) 300 Mg Capsule, 600 MG PO BID, (Reported) AM/HS Gabapentin (Gabapentin) 300 Mg Capsule, 300 MG PO DAILY, (Reported) TAKES AT NOON Magnesium Oxide (Magnesium Oxide) 400 Mg Tablet, 400 MG PO QHS, (Reported) Melatonin (Melatonin) 10 Mg Capsule, 10 MG PO QHS, (Reported) Metronidazole (Flagyl) 500 Mg Tablet, 500 MG PO Q8H Multivitamins (Thera M Plus Tablet) 1 Each Tablet, 1 TAB PO DAILY, (Reported) Pantoprazole Sodium (Pantoprazole Sodium) 40 Mg Tablet.dr, 40 MG PO DAILY Tamsulosin HCl (Flomax) 0.4 Mg Capsule, 0.4 MG PO DAILY, (Reported) Scheduled PRN Meclizine HCl (Meclizine HCl) 25 Mg Tablet, 25 MG PO TID PRN for DIZZINESS, (Reported) Allergies Coded Allergies: aspirin (Verified Allergy, Unknown, 08/31/19) atorvastatin (Verified Allergy, Unknown, 08/31/19) latex (Verified Allergy, Unknown, 08/31/19) rosuvastatin (Verified Allergy, Unknown, 08/31/19) tetracycline (Verified Allergy, Unknown, 08/31/19) A-FIB/CHADSVASC A-FIB History Current/History of A-Fib/PAF?: No SKIP CLARKE MD Jan 02, 2020 15:13
[2020-01-02] MEDS: SIMETHICONE 80 MG CHEW TAB PO SCH ×2 (17:09→21:43)
--- NOTE | 2020-01-02 17:58 | IPNPDOC ---
Text Note Date of Service The patient was seen on 01/02/20. NOTE Subjective: No any acute events overnight. Patient denies fever, chills, nausea, vomiting, diarrhea or dysuria Objective: General: Alert, No Acute Distress Eye: PERRLA, EOMI, anicteric ENT: MMM Neck: supple, no JVD Chest: CTAB Heart: RRR, no mrg Abdomen: normoactive bowel sounds,diffuse mild TTP, negative Nunez's, no involuntary guarding or rebound Extremity: No edema,noswelling Skin: no noted rashes or lesions Neuro: Cranial Nerves 3-12 WNL, moving all extremities Psych: Mental status WNL, Oriented x 3 Assessment and plan Patient is 84 yo 84 yo man with a pertinent medical history of CAD s/p CABG, s/p PPP, HTN, HLD, gout, CKD3 with baseline Cr 1.3-1.9, history of a PE, TIA, abdominal hernia, history of GIB and L AKA who treated for choledocholithiasis with ERCP with Dr. 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 Patient was transferred to acute rehabilitation. Status post ERCP No any acute abdominal pain Patient will need elective cholecystectomy and repeat ERCP in 3 months Continue PPI and sucralfate Continue Cipro and Flagyl BPH -flomax chronic pain -continue home gabapentin CAD s/p CABG: Continue home cardioprotective medication Gout Gout -allopurinol CKD3: at baseline -monitor BMP daily -avoid nephrotoxins [place] D Multivitamin VS,Fishbone, I+O VS, Fishbone, I+O Laboratory Tests 01/02/20 06:18 Vital Signs Date Time Temp Pulse Resp B/P (MAP) Pulse Ox O2 Delivery O2 Flow Rate FiO2 01/02/20 14:00 97.5 89 18 150/90 (110) 94 Room Air 01/01/20 21:58 2.0 I&O- Last 24 Hours up to 6 AM 01/02/20 06:00 Intake Total 440 ml Output Total 1225 ml Balance -785 ml ASHLIE MCKEON DO Jan 02, 2020 17:58
[2020-01-02 20:00] VITALS: BP 133/79
[2020-01-02] MEDS: SENNA 8.6 MG TAB (SENOKOT) PO SCH (21:00)
[2020-01-02] MEDS: MAGNESIUM OXIDE 400 MG TAB (MAG-OX) PO SCH (21:43)
[2020-01-02] MEDS: traZODone 25MG PER 1/2 TABLET PO SCH (21:43)
[2020-01-03 05:56] VITALS: BP 126/73
[2020-01-03] MEDS: HEPARIN SOD (PORCINE) 5000UNITS/ML VIAL (J1644 PER 1000UNITS) SC SCH ×3 (06:15→22:07)
[2020-01-03] MEDS: metroNIDAZOLE (FLAGYL) 500 MG TAB PO SCH ×3 (06:15→22:06)
[2020-01-03] MEDS: CIPROFLOXACIN 500MG TABLET PO SCH ×2 (06:15→16:50)
[2020-01-03] MEDS: allopurinoL 300 MG TAB PO SCH (08:45)
[2020-01-03] MEDS: TAMSULOSIN 0.4 MG CAP PO SCH (08:45)
[2020-01-03] MEDS: SUCRALFATE 1 GM TAB PO SCH ×4 (08:45→22:05)
[2020-01-03] MEDS: ACETAMINOPHEN TAB 650MG DOSE (2X325MG) PO PRN (08:45)
[2020-01-03] MEDS: OMEGA-3 1000MG CAPSULE PO SCH (08:45)
[2020-01-03] MEDS: GABAPENTIN 300 MG CAP PO SCH ×3 (08:45→22:06)
[2020-01-03] MEDS: CALCIUM/VITAMIN D 500 MG TAB PO SCH (08:46)
[2020-01-03] MEDS: LACTOBACILLUS ACIDOPHILUS CAP (BACID) PO SCH ×4 (08:46→22:06)
[2020-01-03] MEDS: MULTIVITAMINS/MINERALS THERAP 1 TAB PO SCH (08:46)
[2020-01-03] MEDS: PANTOPRAZOLE 40MG TAB (PROTONIX) PO SCH ×2 (08:46→22:06)
[2020-01-03] MEDS: SIMETHICONE 80 MG CHEW TAB PO SCH ×3 (08:46→22:06)
[2020-01-03] MEDS: DOCUSATE SODIUM 100 MG CAP PO SCH ×2 (08:46→21:00)
[2020-01-03] MEDS: REMEDY PHYTOPLEX Z-GUARD PASTE 113GM TUBE (FROM STOREROOM PRODUCT) TOP SCH ×3 (08:47→22:07)
--- NOTE | 2020-01-03 10:46 | ECGEPIP ---
[facility] Test Date: 2020-01-01 Pat Name: DORINA THORNTON Department: Room: [place] [address] Gender: Male Client Operations Manager: CHAVEZ : [id number] Requested By: SKIP CLARKE Order Number: [id number] Reading MD: Bruce Delatorre Measurements Intervals [place] Rate: 73 P: 111 IN: 149 QRS: -79 QRSD: 176 T: 92 QT: 447 QTc: 493 Interpretive Statements A-V sequential pacemaker No significant change when compared to prior tracing of 12/27/2019 Electronically Signed on 01-03-2020 10:45:59 EDT by Bruce Delatorre
--- NOTE | 2020-01-03 10:55 | IPNPDOC ---
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 REVIEW OF SYSTEMS: The following is a completed review of systems and has been reviewed. Review of systems otherwise unremarkable. PAIN: Patient self reports no pain EYES: No recent vision changes EARS, NOSE, & THROAT: No throat pain, or dysphagia, or rhinorrhea CARDIOVASCULAR: Denies chest pain or palpitations PULMONARY: Denies shortness of breath GASTROINTESTINAL: Denies constipation/diarrhea GENITOURINARY: denies dysuria MUSCULOSKELETAL: left AKA NEUROLOGICAL:no tremor or paresthesias HEMATOLOGICAL: denies easy bruising SKIN: no rash PSYCHIATRIC: Unremarkable All other review of systems found to be negative. PHYSICAL EXAMINATION: VITAL SIGNS: Please see below. GENERAL: Pleasant and cooperative. No acute distress. HEENT: PERRL. Extraocular movements intact. Clear conjunctiva CARDIOVASCULAR: Regular rate and rhythm. No murmurs, rubs, or gallops, +PM LUNGS: Clear to auscultation bilaterally. No wheezes. No rhonchi ABDOMEN: Soft, nontender, mildly distended, distended. Positive bowel sounds. no guarding NEUROLOGICAL: Alert and oriented times three. Cranial nerves II through XII grossly intact. Sensation grossly intact] EXTREMITIES: 5\5 strength bilateral upper extremities. 5\5 strength right lower extremity. 5/5 strength in left hip flexors. SKIN: no sacral erythema LABORATORY DATA: Please see below. ASSESSMENT:84-year-old M with past medical history of CAD, left AKA who presents status post ERCP for sepsis in setting of choledocholithiasis PLAN: 1. Rehab- PT/OT advance agit and ADLs, strengthen/stretch/maintain ROM all 4 limbs, ambulating with RW 2. 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 GI s/p ERCP for choledocholithiasis with sepsis which is improving c/u Cipro and Flagyl for intraabdominal infection -c/u protonix and sucralfate -c/u sucralfate -f/u GI cytology results, f/u ERCP in 3 months, consider elective chol ecystectomy 5. Resp- c/u supplemental 02 prn, monitor for infection 6. Pain- c/u gabapentin and tylenol prn 7. DVT ppx- heparin and teds 8. - c/u flomax, monitor PVRs 9. Psych- trazodone for insomnia 10. DIspo- TBD Allergies Coded Allergies: atorvastatin (Verified Allergy, Unknown, 08/31/19) latex (Verified Allergy, Unknown, 08/31/19) rosuvastatin (Verified Allergy, Unknown, 08/31/19) tetracycline (Verified Allergy, Unknown, 08/31/19) aspirin (Verified Adverse Reaction, Mild, Aggravates stomach ulcer., 01/04/20) Vital Signs Vital Signs Date Time Temp Pulse Resp B/P (MAP) Pulse Ox O2 Delivery O2 Flow Rate FiO2 01/03/20 05:56 99.1 85 17 126/73 (90) 91 Nasal Cannula 2.0 Current Medications Current Medications Current Medications Medications (Trade) Dose Ordered Sig/Natalia Route PRN Reason Start Time Stop Time Status Last Admin Dose Admin Acetaminophen (Tylenol Tab) 650 mg Q4HP PRN PO fever/MILD PAIN (PS 1-4) 01/01/20 17:45 01/03/20 08:45 Al Hydrox/Mg Hydrox/Simethicone (Mylanta) 30 ml Q4HP PRN PO DYSPEPSIA 01/01/20 17:45 Allopurinol (Zyloprim) 300 mg DAILY PO 01/02/20 09:00 01/03/20 08:45 Bisacodyl (Dulcolax Suppository) 10 mg DAILYPRN PRN [place] CONSTIPATION 01/01/20 17:45 Bisacodyl (Dulcolax Tab) 5 mg DAILYPRN PRN PO CONSTIPATION 01/01/20 17:45 Calcium/Vitamin D (Oscal D) 1,000 mg DAILY PO 01/02/20 09:00 01/03/20 08:46 Ciprofloxacin (Cipro) 500 mg BID@,18 PO 01/02/20 06:00 01/03/20 06:15 Docusate Sodium (Colace) 100 mg BID PO 01/01/20 21:00 01/01/20 21:32 Fish Oil ([place]-3 (1000mg)) 1 cap MoTh@0900 PO 01/03/20 09:00 01/03/20 08:45 Gabapentin (Neurontin) 300 mg DAILY@1200 PO 01/02/20 12:00 01/02/20 11:31 Gabapentin (Neurontin) 600 mg BID PO 01/01/20 21:00 01/03/20 08:45 Heparin Sodium (Porcine) (Heparin) 5,000 units Q8H SC 01/01/20 22:00 01/03/20 06:15 Lactobacillus Acidophilus (Bacid) 1 ea WMHS PO 01/01/20 18:00 01/03/20 08:46 Magnesium Oxide (Mag-Ox) 400 mg QHS PO 01/01/20 21:00 01/02/20 21:43 Meclizine HCl (Antivert) 25 mg TIDP PRN PO DIZZINESS 01/01/20 17:45 Metronidazole (Flagyl) 500 mg Q8H PO 01/01/20 22:00 01/03/20 06:15 Multivitamins (Theragram-M) 1 tab DAILY PO 01/02/20 09:00 01/03/20 08:46 Pantoprazole Sodium (Protonix) 40 mg BID PO 01/01/20 21:00 01/03/20 08:46 Senna (Senokot) 1 tab QHS PO 01/01/20 21:00 01/01/20 21:32 Simethicone (Mylicon) 80 mg TID PO 01/02/20 16:00 01/03/20 08:46 Sucralfate (Carafate) 1 gm ACHS PO 01/01/20 21:00 01/03/20 08:45 Tamsulosin HCl (Flomax) 0.4 mg DAILY PO 01/02/20 09:00 01/03/20 08:45 Trazodone HCl (Desyrel) 25 mg QHS PO 01/02/20 21:00 01/02/20 21:43 SKIP CLARKE MD Jan 03, 2020 10:55
[2020-01-03 14:00] VITALS: BP 157/72
[2020-01-03 20:00] VITALS: BP 157/72
[2020-01-03] MEDS: SENNA 8.6 MG TAB (SENOKOT) PO SCH (21:00)
[2020-01-03] MEDS: traZODone 25MG PER 1/2 TABLET PO SCH (22:06)
[2020-01-03] MEDS: MAGNESIUM OXIDE 400 MG TAB (MAG-OX) PO SCH (22:06)
[2020-01-04 06:00] VITALS: BP 152/81
[2020-01-04] MEDS: metroNIDAZOLE (FLAGYL) 500 MG TAB PO SCH ×3 (06:38→20:39)
[2020-01-04] MEDS: HEPARIN SOD (PORCINE) 5000UNITS/ML VIAL (J1644 PER 1000UNITS) SC SCH ×3 (06:39→20:39)
[2020-01-04] MEDS: SUCRALFATE 1 GM TAB PO SCH ×4 (06:39→20:37)
[2020-01-04] MEDS: GABAPENTIN 300 MG CAP PO SCH ×3 (06:39→20:39)
[2020-01-04] MEDS: CIPROFLOXACIN 500MG TABLET PO SCH ×2 (06:39→16:48)
[2020-01-04] MEDS: allopurinoL 300 MG TAB PO SCH (07:45)
[2020-01-04] MEDS: CALCIUM/VITAMIN D 500 MG TAB PO SCH (07:45)
[2020-01-04] MEDS: PANTOPRAZOLE 40MG TAB (PROTONIX) PO SCH ×2 (07:45→20:38)
[2020-01-04] MEDS: MULTIVITAMINS/MINERALS THERAP 1 TAB PO SCH (07:45)
[2020-01-04] MEDS: SIMETHICONE 80 MG CHEW TAB PO SCH ×3 (07:46→20:38)
[2020-01-04] MEDS: TAMSULOSIN 0.4 MG CAP PO SCH (07:46)
[2020-01-04] MEDS: DOCUSATE SODIUM 100 MG CAP PO SCH ×2 (07:46→20:39)
[2020-01-04] MEDS: LACTOBACILLUS ACIDOPHILUS CAP (BACID) PO SCH ×4 (07:46→20:38)
[2020-01-04] MEDS: REMEDY PHYTOPLEX Z-GUARD PASTE 113GM TUBE (FROM STOREROOM PRODUCT) TOP SCH ×3 (07:46→20:40)
[2020-01-04 08:26] LABS: BASO % 0.5 % (0.0-1.0); EOS # 0.2 10^3/uL (0.0-0.5); EOS % 2.4 % (0.0-3.0); HEMOGLOBIN 14.1 g/dl (13.5-17.5); LYMPH # 1.2 10^3/uL (1.5-5.0); MEAN CORPUSCULAR HEMOGLOBIN 31.1 pg (27.0-33.0); MEAN CORPUSCULAR HGB CONC 33.6 g/dl (32.0-36.5); MEAN CORPUSCULAR VOLUME 92.5 fl (80.0-96.0); MONO # 0.8 10^3/uL (0.0-0.8); MONO % 10.3 % (0.0-5.0); NEUTROPHILS # 5.7 10^3/uL (1.5-8.5); NEUTROPHILS % 70.1 % (36.0-66.0); PLATELET COUNT, AUTOMATED 193 10^3/uL (150-450); RED BLOOD COUNT 4.54 10^6/uL (4.30-6.10); WHITE BLOOD COUNT 8.1 10^3/uL (4.0-10.0)
[2020-01-04 08:42] LABS: BLOOD UREA NITROGEN 16 MG/DL (7-18); CALCIUM LEVEL 7.7 MG/DL (8.8-10.2); CARBON DIOXIDE LEVEL 27 MEQ/L (21-32); CHLORIDE LEVEL 107 MEQ/L (98-107); CREATININE FOR GFR 1.19 MG/DL (0.70-1.30); GLOMERULAR FILTRATION RATE > 60.0 (>35); GLUCOSE, FASTING 140 MG/DL (70-100); POTASSIUM SERUM 3.8 MEQ/L (3.5-5.1); SODIUM LEVEL 140 MEQ/L (136-145)
[2020-01-04 14:00] VITALS: BP 125/99
[2020-01-04] MEDS: ACETAMINOPHEN TAB 650MG DOSE (2X325MG) PO PRN (14:02)
[2020-01-04] MEDS: ANALGESIC BALM CRM 120 GM TOP SCH ×2 (16:47→20:40)
[2020-01-04 20:00] VITALS: BP 145/99
[2020-01-04] MEDS: traZODone 25MG PER 1/2 TABLET PO SCH (20:37)
[2020-01-04] MEDS: MAGNESIUM OXIDE 400 MG TAB (MAG-OX) PO SCH (20:38)
[2020-01-04] MEDS: SENNA 8.6 MG TAB (SENOKOT) PO SCH (20:39)
[2020-01-05] MEDS: HEPARIN SOD (PORCINE) 5000UNITS/ML VIAL (J1644 PER 1000UNITS) SC SCH ×3 (05:58→21:32)
[2020-01-05] MEDS: CIPROFLOXACIN 500MG TABLET PO SCH ×2 (05:58→17:15)
[2020-01-05] MEDS: metroNIDAZOLE (FLAGYL) 500 MG TAB PO SCH ×2 (05:58→15:06)
[2020-01-05] MEDS: GABAPENTIN 300 MG CAP PO SCH ×3 (05:58→21:33)
[2020-01-05 06:00] VITALS: BP 160/77
[2020-01-05] MEDS: DOCUSATE SODIUM 100 MG CAP PO SCH ×2 (09:00→21:00)
[2020-01-05] MEDS: REMEDY PHYTOPLEX Z-GUARD PASTE 113GM TUBE (FROM STOREROOM PRODUCT) TOP SCH ×3 (09:00→21:00)
[2020-01-05] MEDS: ANALGESIC BALM CRM 120 GM TOP SCH ×3 (09:00→21:00)
[2020-01-05] MEDS: CALCIUM/VITAMIN D 500 MG TAB PO SCH (09:09)
[2020-01-05] MEDS: LACTOBACILLUS ACIDOPHILUS CAP (BACID) PO SCH ×4 (09:09→21:33)
[2020-01-05] MEDS: PANTOPRAZOLE 40MG TAB (PROTONIX) PO SCH ×2 (09:09→21:33)
[2020-01-05] MEDS: allopurinoL 300 MG TAB PO SCH (09:09)
[2020-01-05] MEDS: TAMSULOSIN 0.4 MG CAP PO SCH (09:09)
[2020-01-05] MEDS: SUCRALFATE 1 GM TAB PO SCH ×4 (09:09→21:33)
[2020-01-05] MEDS: MULTIVITAMINS/MINERALS THERAP 1 TAB PO SCH (09:09)
[2020-01-05] MEDS: SIMETHICONE 80 MG CHEW TAB PO SCH ×3 (09:09→21:32)
[2020-01-05 14:00] VITALS: BP 142/72
[2020-01-05 20:00] VITALS: BP 144/66
[2020-01-05] MEDS: SENNA 8.6 MG TAB (SENOKOT) PO SCH (21:00)
[2020-01-05] MEDS: traZODone 25MG PER 1/2 TABLET PO SCH (21:33)
[2020-01-05] MEDS: MAGNESIUM OXIDE 400 MG TAB (MAG-OX) PO SCH (21:33)
[2020-01-06] MEDS: GABAPENTIN 300 MG CAP PO SCH ×3 (05:23→21:26)
[2020-01-06] MEDS: HEPARIN SOD (PORCINE) 5000UNITS/ML VIAL (J1644 PER 1000UNITS) SC SCH ×3 (05:23→21:26)
[2020-01-06 06:00] VITALS: BP 145/70
[2020-01-06] MEDS: ANALGESIC BALM CRM 120 GM TOP SCH ×3 (09:00→21:00)
[2020-01-06] MEDS: REMEDY PHYTOPLEX Z-GUARD PASTE 113GM TUBE (FROM STOREROOM PRODUCT) TOP SCH ×3 (09:00→21:00)
[2020-01-06] MEDS: DOCUSATE SODIUM 100 MG CAP PO SCH ×2 (09:00→21:00)
[2020-01-06] MEDS: TAMSULOSIN 0.4 MG CAP PO SCH (09:04)
[2020-01-06] MEDS: SIMETHICONE 80 MG CHEW TAB PO SCH ×3 (09:04→21:25)
[2020-01-06] MEDS: SUCRALFATE 1 GM TAB PO SCH ×4 (09:04→21:26)
[2020-01-06] MEDS: CALCIUM/VITAMIN D 500 MG TAB PO SCH (09:05)
[2020-01-06] MEDS: LACTOBACILLUS ACIDOPHILUS CAP (BACID) PO SCH ×4 (09:05→21:25)
[2020-01-06] MEDS: allopurinoL 300 MG TAB PO SCH (09:05)
[2020-01-06] MEDS: MULTIVITAMINS/MINERALS THERAP 1 TAB PO SCH (09:05)
[2020-01-06] MEDS: PANTOPRAZOLE 40MG TAB (PROTONIX) PO SCH ×2 (09:05→21:26)
[2020-01-06 14:00] VITALS: BP 116/82
[2020-01-06 20:00] VITALS: BP 155/72
[2020-01-06] MEDS: SENNA 8.6 MG TAB (SENOKOT) PO SCH (21:00)
[2020-01-06] MEDS: traZODone 25MG PER 1/2 TABLET PO SCH (21:25)
[2020-01-06] MEDS: MAGNESIUM OXIDE 400 MG TAB (MAG-OX) PO SCH (21:26)
[2020-01-07 05:08] VITALS: BP 137/66
[2020-01-07] MEDS: GABAPENTIN 300 MG CAP PO SCH ×3 (06:04→20:24)
[2020-01-07] MEDS: HEPARIN SOD (PORCINE) 5000UNITS/ML VIAL (J1644 PER 1000UNITS) SC SCH ×3 (06:04→20:24)
[2020-01-07] MEDS: TAMSULOSIN 0.4 MG CAP PO SCH (08:16)
[2020-01-07] MEDS: MULTIVITAMINS/MINERALS THERAP 1 TAB PO SCH (08:16)
[2020-01-07] MEDS: LACTOBACILLUS ACIDOPHILUS CAP (BACID) PO SCH ×4 (08:16→20:23)
[2020-01-07] MEDS: OMEGA-3 1000MG CAPSULE PO SCH (08:16)
[2020-01-07] MEDS: SUCRALFATE 1 GM TAB PO SCH ×4 (08:16→20:23)
[2020-01-07] MEDS: SIMETHICONE 80 MG CHEW TAB PO SCH ×3 (08:16→20:23)
[2020-01-07] MEDS: DOCUSATE SODIUM 100 MG CAP PO SCH ×2 (08:16→20:26)
[2020-01-07] MEDS: allopurinoL 300 MG TAB PO SCH (08:16)
[2020-01-07] MEDS: PANTOPRAZOLE 40MG TAB (PROTONIX) PO SCH ×2 (08:16→20:24)
[2020-01-07] MEDS: CALCIUM/VITAMIN D 500 MG TAB PO SCH (08:17)
[2020-01-07] MEDS: ANALGESIC BALM CRM 120 GM TOP SCH ×3 (08:18→20:26)
[2020-01-07] MEDS: REMEDY PHYTOPLEX Z-GUARD PASTE 113GM TUBE (FROM STOREROOM PRODUCT) TOP SCH ×3 (08:19→20:24)
[2020-01-07 11:13] LABS: BASO % 0.5 % (0.0-1.0); EOS % 1.2 % (0.0-3.0); HEMOGLOBIN 14.3 g/dl (13.5-17.5); LYMPH % 16.5 % (24.0-44.0); MEAN CORPUSCULAR HEMOGLOBIN 30.3 pg (27.0-33.0); MEAN CORPUSCULAR HGB CONC 32.5 g/dl (32.0-36.5); MEAN CORPUSCULAR VOLUME 93.2 fl (80.0-96.0); PLATELET COUNT, AUTOMATED 291 10^3/uL (150-450); RED BLOOD COUNT 4.72 10^6/uL (4.30-6.10); WHITE BLOOD COUNT 7.8 10^3/uL (4.0-10.0)
[2020-01-07 11:14] LABS: EOS # 0.1 10^3/uL (0.0-0.5); LYMPH # 1.3 10^3/uL (1.5-5.0); MONO # 0.8 10^3/uL (0.0-0.8); NEUTROPHILS # 5.4 10^3/uL (1.5-8.5)
[2020-01-07 11:36] LABS: CALCIUM LEVEL 8.6 MG/DL (8.8-10.2); CREATININE FOR GFR 1.23 MG/DL (0.70-1.30); GLOMERULAR FILTRATION RATE 59.4 (>35); POTASSIUM SERUM 4.5 MEQ/L (3.5-5.1)
[2020-01-07 14:00] VITALS: BP 135/70
--- NOTE | 2020-01-07 14:16 | IPNPDOC ---
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 he states his niece will help him during the day. REVIEW OF SYSTEMS: The following is a completed review of systems and has been reviewed. Review of systems otherwise unremarkable. PAIN: Patient self reports no pain EYES: No recent vision changes EARS, NOSE, & THROAT: No throat pain, or dysphagia, or rhinorrhea CARDIOVASCULAR: Denies chest pain or palpitations PULMONARY: Denies shortness of breath GASTROINTESTINAL: Denies constipation/diarrhea GENITOURINARY: denies dysuria MUSCULOSKELETAL: left AKA NEUROLOGICAL:no tremor or paresthesias HEMATOLOGICAL: denies easy bruising SKIN: no rash PSYCHIATRIC: Unremarkable All other review of systems found to be negative. PHYSICAL EXAMINATION: VITAL SIGNS: Please see below. GENERAL: Pleasant and cooperative. No acute distress. HEENT: PERRL. Extraocular movements intact. Clear conjunctiva CARDIOVASCULAR: Regular rate and rhythm. No murmurs, rubs, or gallops, +PM LUNGS: Clear to auscultation bilaterally. No wheezes. No rhonchi ABDOMEN: Soft, nontender, mildly distended, distended. Positive bowel sounds. no guarding NEUROLOGICAL: Alert and oriented times three. Cranial nerves II through XII grossly intact. Sensation grossly intact] EXTREMITIES: 5\5 strength bilateral upper extremities. 5\5 strength right lower extremity. 5/5 strength in left hip flexors. SKIN: no sacral erythema LABORATORY DATA: Please see below. ASSESSMENT:84-year-old M with past medical history of CAD, left AKA who presents status post ERCP for sepsis in setting of choledocholithiasis PLAN: 1. Rehab- PT/OT advance agit and ADLs, strengthen/stretch/maintain ROM all 4 limbs, ambulating with RW 2. 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 GI s/p ERCP for choledocholithiasis with sepsis which is improving s/p course of Cipro and Flagyl for intraabdominal infection -c/u protonix and sucralfate -c/u sucralfate -f/u GI cytology results, f/u ERCP in 3 months, consider elective cholecystectomy 5. Resp- c/u supplemental 02 prn, monitor for infection 6. Pain- c/u gabapentin and tylenol prn 7. DVT ppx- heparin and teds 8. - c/u flomax, monitor PVRs 9. Psych- trazodone for insomnia 10. DIspo- 01-07-30 to home, progressing towards goals, however would benefit from a few more days in order to have room privileges to assure safest discharge home- patient declines to stay further despite educate don increased risk of falls and states his niece lives down the street and can stay with him during the day Allergies Coded Allergies: atorvastatin (Verified Allergy, Unknown, 08/31/19) latex (Verified Allergy, Unknown, 08/31/19) rosuvastatin (Verified Allergy, Unknown, 08/31/19) tetracycline (Verified Allergy, Unknown, 08/31/19) aspirin (Verified Adverse Reaction, Mild, Aggravates stomach ulcer., 01/04/20) Vital Signs Vital Signs Date Time Temp Pulse Resp B/P (MAP) Pulse Ox O2 Delivery O2 Flow Rate FiO2 01/07/20 14:00 98.4 62 18 135/70 (91) 96 Room Air 01/03/20 05:56 2.0 Laboratory Data CBC/BMP Laboratory Tests 01/07/20 10:46 Labs 24H Laboratory Tests 2 01/07/20 10:46: Immature Granulocyte % (Auto) 1.8, Neutrophils (%) (Auto) 70.0H, Lymphocytes (%) (Auto) 16.5L, Monocytes (%) (Auto) 10.0H, Eosinophils (%) (Auto) 1.2, Basophils (%) (Auto) 0.5, Neutrophils # (Auto) 5.4, Lymphocytes # (Auto) 1.3L, Monocytes # (Auto) 0.8, Eosinophils # (Auto) 0.1, Basophils # (Auto) 0.0, Nucleated Red Blood Cells % (auto) 0.0, Anion Gap 7L, Glomerular Filtration Rate 59.4, Calcium Level 8.6L Current Medications Current Medications Current Medications Medications (Trade) Dose Ordered Sig/Natalia Route PRN Reason Start Time Stop Time Status Last Admin Dose Admin Acetaminophen (Tylenol Tab) 650 mg Q4HP PRN PO fever/MILD PAIN (PS 1-4) 01/01/20 17:45 01/04/20 14:02 Al Hydrox/Mg Hydrox/Simethicone (Mylanta) 30 ml Q4HP PRN PO DYSPEPSIA 01/01/20 17:45 01/04/20 14:01 Allopurinol (Zyloprim) 300 mg DAILY PO 01/02/20 09:00 01/07/20 08:16 Bisacodyl (Dulcolax Suppository) 10 mg DAILYPRN PRN [place] CONSTIPATION 01/01/20 17:45 Bisacodyl (Dulcolax Tab) 5 mg DAILYPRN PRN PO CONSTIPATION 01/01/20 17:45 Calcium/Vitamin D (Oscal D) 1,000 mg DAILY PO 01/02/20 09:00 01/07/20 08:17 Ciprofloxacin (Cipro) 500 mg BID@06,18 PO 01/02/20 06:00 01/05/20 17:20 DC 01/05/20 17:15 Docusate Sodium (Colace) 100 mg BID PO 01/01/20 21:00 01/07/20 08:16 Fish Oil ([place]-3 (1000mg)) 1 cap MoTh@0900 PO 01/03/20 09:00 01/07/20 08:16 Gabapentin (Neurontin) 300 mg DAILY@1200 PO 01/02/20 12:00 01/07/20 12:41 Gabapentin (Neurontin) 600 mg BID PO 01/01/20 21:00 01/03/20 18:44 DC 01/03/20 08:45 Gabapentin (Neurontin) 600 mg BID@0600,2100 PO 01/03/20 21:00 01/07/20 06:04 Heparin Sodium (Porcine) (Heparin) 5,000 units Q8H SC 01/01/20 22:00 01/07/20 06:04 Lactobacillus Acidophilus (Bacid) 1 ea WMHS PO 01/01/20 18:00 01/07/20 12:41 Magnesium Oxide (Mag-Ox) 400 mg QHS PO 01/01/20 21:00 01/06/20 21:26 Meclizine HCl (Antivert) 25 mg TIDP PRN PO DIZZINESS 01/01/20 17:45 Menthol/Methyl Salicylate (Bengay Cream) APPLY TO BACK TID TOP 01/04/20 16:00 01/04/20 20:40 Metronidazole (Flagyl) 500 mg Q8H PO 01/01/20 22:00 01/05/20 16:29 DC 01/05/20 15:06 Multivitamins (Theragram-M) 1 tab DAILY PO 01/02/20 09:00 01/07/20 08:16 Pantoprazole Sodium (Protonix) 40 mg BID PO 01/01/20 21:00 01/07/20 08:16 Senna (Senokot) 1 tab QHS PO 01/01/20 21:00 01/01/20 21:32 Simethicone (Mylicon) 80 mg TID PO 01/02/20 16:00 01/07/20 08:16 Sucralfate (Carafate) 1 gm ACHS PO 01/01/20 21:00 01/07/20 12:41 Tamsulosin HCl (Flomax) 0.4 mg DAILY PO 01/02/20 09:00 01/07/20 08:16 Trazodone HCl (Desyrel) 25 mg QHS PO 01/02/20 21:00 01/06/20 21:25 SKIP CLARKE MD Jan 07, 2020 14:16
[2020-01-07 19:49] VITALS: BP 159/83
[2020-01-07] MEDS: MAGNESIUM OXIDE 400 MG TAB (MAG-OX) PO SCH (20:23)
[2020-01-07] MEDS: traZODone 25MG PER 1/2 TABLET PO SCH (20:23)
[2020-01-07] MEDS: NYSTATIN 100,000 UNITS/GM TOPICAL PWD 15 GM TOP SCH (20:24)
[2020-01-07] MEDS: SENNA 8.6 MG TAB (SENOKOT) PO SCH (20:25)
[2020-01-08] MEDS: GABAPENTIN 300 MG CAP PO SCH ×2 (05:40→12:26)
[2020-01-08] MEDS: HEPARIN SOD (PORCINE) 5000UNITS/ML VIAL (J1644 PER 1000UNITS) SC SCH (05:41)
[2020-01-08 05:59] VITALS: BP 114/59
[2020-01-08] MEDS: CALCIUM/VITAMIN D 500 MG TAB PO SCH (08:35)
[2020-01-08] MEDS: LACTOBACILLUS ACIDOPHILUS CAP (BACID) PO SCH ×2 (08:35→12:26)
[2020-01-08] MEDS: MULTIVITAMINS/MINERALS THERAP 1 TAB PO SCH (08:35)
[2020-01-08] MEDS: SIMETHICONE 80 MG CHEW TAB PO SCH (08:35)
[2020-01-08] MEDS: allopurinoL 300 MG TAB PO SCH (08:35)
[2020-01-08] MEDS: SUCRALFATE 1 GM TAB PO SCH ×2 (08:35→12:26)
[2020-01-08] MEDS: PANTOPRAZOLE 40MG TAB (PROTONIX) PO SCH (08:35)
[2020-01-08] MEDS: DOCUSATE SODIUM 100 MG CAP PO SCH (08:35)
[2020-01-08] MEDS: TAMSULOSIN 0.4 MG CAP PO SCH (08:35)
[2020-01-08] MEDS: NYSTATIN 100,000 UNITS/GM TOPICAL PWD 15 GM TOP SCH (08:36)
[2020-01-08] MEDS: REMEDY PHYTOPLEX Z-GUARD PASTE 113GM TUBE (FROM STOREROOM PRODUCT) TOP SCH (08:36)
[2020-01-08] MEDS: ANALGESIC BALM CRM 120 GM TOP SCH (08:36)
[2020-01-08] MEDS ORDERED: SUCR1TA PO (09:50)
[2020-01-08] MEDS ORDERED: PANT40TA3 PO (09:50)
[2020-01-08] MEDS ORDERED: FLOM0.4C39 PO (09:50)
[2020-01-08] MEDS ORDERED: ZYLO300T6 PO (09:50)
[2020-01-08] MEDS ORDERED: MAG400TA PO (09:50)
== END 2020-01-08 13:20 | disposition home health service (06) | DRG 93 ==
LOC: M PM&R 17:40
PROVIDERS: ADMIT Physical Medicine & Rehabilitation; ATTEND Physical Medicine & Rehabilitation
DX: G89.29 Other chronic pain (principal); I25.10 Atherosclerotic heart disease of native coronary artery without angina pectoris; I12.9 Hypertensive chronic kidney disease with stage 1 through stage 4 chronic kidney disease, or unspecified chronic kidney disease; R26.89 Other abnormalities of gait and mobility; E78.5 Hyperlipidemia, unspecified; M10.9 Gout, unspecified; N18.3 Chronic kidney disease, stage 3 (moderate); I71.4 Abdominal aortic aneurysm, without rupture; G47.00 Insomnia, unspecified; N40.0 Benign prostatic hyperplasia without lower urinary tract symptoms; Z74.09 Other reduced mobility; Z86.711 Personal history of pulmonary embolism; Z95.1 Presence of aortocoronary bypass graft; Z89.612 Acquired absence of left leg above knee; Z88.6 Allergy status to analgesic agent; Z86.73 Personal history of transient ischemic attack (TIA), and cerebral infarction without residual deficits; Z88.1 Allergy status to other antibiotic agents; Z88.8 Allergy status to other drugs, medicaments and biological substances; Z79.899 Other long term (current) drug therapy; Z95.0 Presence of cardiac pacemaker

== ENCOUNTER → 2020-05-29 | Outpatient (CLI) | payer MEDICARE ==
[~2020-05-29] MED LIST changes: +MAG400TA PO; +PANT40TA29 PO; -PANT40TA3 PO; +SM M250T2 PO; +SUCR1TA PO; +VITA-243 PO
== END ==
LOC: M LABSMTC 10:52
PROVIDERS: ATTEND Anesthesiology
DX: Z01.812 Encounter for preprocedural laboratory examination (principal); Z20.828 Contact with and (suspected) exposure to other viral communicable diseases

== ENCOUNTER 2020-06-03 07:19 | Day surgery (SDC) | payer MEDICARE ==
[~2020-06-03] VITALS: Ht 172.7 cm; Wt 74.0 kg
[~2020-06-03 07:19] MED LIST changes: +ceFAZolin SOD 2 GM in IV 1 EA IV ONE
[2020-06-03] MEDS ORDERED: LIDOCAINE 2% 100MG/5ML SDV (FOR ANES.) As Ordered ONE (09:56)
[2020-06-03] MEDS ORDERED: propofoL 200 MG/20 ML VIAL As Ordered ONE (09:56)
[2020-06-03] MEDS ORDERED: ONDANSETRON 4MG/2ML VIAL As Ordered ONE (09:56)
[2020-06-03] MEDS ORDERED: METOCLOPRAMIDE INJ 10MG/2ML VIAL (J2765 PER 1) As Ordered ONE (09:56)
[2020-06-03] MEDS ORDERED: ROCURONIUM BROMIDE 50 MG/5 ML VIAL As Ordered ONE (09:56)
[2020-06-03] MEDS ORDERED: fentaNYL 250 MCG/5 ML INJECTION (J3010) As Ordered ONE (09:56)
[2020-06-03] MEDS ORDERED: BUPIVACAINE HCL 0.25% 10ML VIAL As Ordered ONE (10:26)
[2020-06-03] MEDS ORDERED: LIDOCAINE W/EPINEPHRINE 1% 20ML VIAL As Ordered ONE (10:26)
[2020-06-03] MEDS ORDERED: PHENYLephrine HCL 500 MCG/5 ML (100MCG/ML) SYRINGE (J2370) As Ordered ONE (11:32)
[2020-06-03] MEDS ORDERED: ACETAMINOPHEN 1000MG 100ML IV BTL (OFIRMEV) (J0131 PER 10MG) As Ordered ONE (11:32)
[2020-06-03] MEDS ORDERED: SUGAMMADEX SODIUM 500 MG/5 ML VIAL (BRIDION) As Ordered ONE (11:59)
--- NOTE | 2020-06-03 12:23 | ROOR ---
Patient Name: Rakesh Higgins Procedure Date: 06/03/2020 11:29 AM Date of : 1935 Age: 84 Gender: Male Note Status: Finalized Procedure: Upper GI endoscopy Indications: Biliary stent removal Providers: Jr Heaton MD Referring MD: ARIANNA MARTINEZ NP Requesting Provider: Medicines: Monitored Anesthesia Care Complications: No immediate complications. Procedure: Pre-Anesthesia Assessment: - Prior to the procedure, a History and Physical was performed, and patient medications and allergies were reviewed. The patient is competent. The risks and benefits of the procedure and the sedation options and risks were discussed with the patient. All questions were answered and informed consent was obtained. Patient identification and proposed procedure were verified by the physician, the nurse and the anesthesiologist in the procedure room. Mental Status Examination: alert and oriented. Airway Examination: normal oropharyngeal airway and neck mobility. Respiratory Examination: clear to auscultation. CV Examination: normal. Prophylactic Antibiotics: The patient does not require prophylactic antibiotics. Prior Anticoagulants: The patient has taken no previous anticoagulant or antiplatelet agents. ASA Grade Assessment: II - A patient with mild systemic disease. After reviewing the risks and benefits, the patient was deemed in satisfactory condition to undergo the procedure. The anesthesia plan was to use monitored anesthesia care (MAC). Immediately prior to administration of medications, the patient was re-assessed for adequacy to receive sedatives. The heart rate, respiratory rate, oxygen saturations, blood pressure, adequacy of pulmonary ventilation, and response to care were monitored throughout the procedure. The physical status of the patient was re-assessed after the procedure. The Endoscope was introduced through the mouth, and advanced to the second part of duodenum. The upper GI endoscopy was accomplished without difficulty. The patient tolerated the procedure well. Findings: No gross lesions were noted in the entire esophagus. Scattered mild inflammation characterized by erythema and granularity was found in the gastric antrum. The duodenal bulb, second portion of the duodenum and third portion of the duodenum were normal. There is no endoscopic evidence of stent in the area of the papilla. Impression: - No gross lesions in esophagus. - Gastritis. - Normal duodenal bulb, second portion of the duodenum and third portion of the duodenum. - No specimens collected. Recommendation: - Patient has a contact number available for emergencies. The signs and symptoms of potential delayed complications were discussed with the patient. Return to normal activities tomorrow. Written discharge instructions were provided to the patient. - Advance diet as tolerated. - Continue present medications. - Perform a flat plate and upright abdominal x-ray at appointment to be scheduled. - Telephone GI clinic to schedule appointment in 1 week. - Return to primary care physician. Procedure Code(s): --- Professional --- 49904, Esophagogastroduodenoscopy, flexible, transoral; diagnostic, including collection of specimen(s) by brushing or washing, when performed (separate procedure) Diagnosis Code(s): --- Professional --- K29.70, Gastritis, unspecified, without bleeding Z46.59, Encounter for fitting and adjustment of other gastrointestinal appliance and device CPT copyright 2019 [employer]. All rights reserved. The codes documented in this report are preliminary and upon marketing automation specialist review may be revised to meet current compliance requirements. Jr Heaton MD Jr Heaton MD 06/03/2020 12:22:32 PM Electronically signed by Jr Heaton MD Number of Addenda: 0 Note Initiated On: 06/03/2020 11:29 AM Estimated Blood Loss: Estimated blood loss: none.
[2020-06-03] MEDS ORDERED: dexameTHASONE 4 MG/ML 1ML VIAL (J1100 PER 1MG) As Ordered ONE (12:26)
[2020-06-03] MEDS: fentaNYL 100 MCG/2 ML INJECTION (J3010) IV PRN ×2 (12:38→12:43)
[2020-06-03] MEDS ORDERED: fentaNYL 100 MCG/2 ML INJECTION (J3010) As Ordered ONE (12:38)
[2020-06-03] MEDS ORDERED: oxyCODONE 5MG TAB PO PRN (12:45)
[2020-06-03] MEDS ORDERED: traMADol 50 MG TAB PO PRN (12:45)
[2020-06-03] MEDS ORDERED: ONDANSETRON 4MG/2ML VIAL IV PRN (12:45)
[2020-06-03] MEDS ORDERED: HYDROMORPHONE HCL 0.5 MG/ 0.5 ML SYRINGE (J1170 PER 1) IV PRN (12:45)
[2020-06-03] MEDS ORDERED: LR 1,000 ML IV SCH (12:45)
[2020-06-03] MEDS ORDERED: NS 1,000 ML IV SCH (12:45)
[2020-06-03] MEDS ORDERED: KETOROLAC 60MG 2ML VIAL As Ordered ONE (13:09)
[2020-06-03 14:40] VITALS: BP 166/75
[2020-06-03] MEDS ORDERED: ACETAMINOPHEN TAB 650MG DOSE (2X325MG) PO ONE (15:15)
== END 2020-06-03 15:28 | disposition home or self-care (01) ==
LOC: M SDC 07:19
PROVIDERS: ATTEND Surgery
DX: K80.10 Calculus of gallbladder with chronic cholecystitis without obstruction (principal); Z46.59 Encounter for fitting and adjustment of other gastrointestinal appliance and device; K29.70 Gastritis, unspecified, without bleeding; I10 Essential (primary) hypertension; I25.10 Atherosclerotic heart disease of native coronary artery without angina pectoris; I25.2 Old myocardial infarction; E78.00 Pure hypercholesterolemia, unspecified; F17.220 Nicotine dependence, chewing tobacco, uncomplicated; G62.9 Polyneuropathy, unspecified; M10.9 Gout, unspecified; N40.0 Benign prostatic hyperplasia without lower urinary tract symptoms; Z79.899 Other long term (current) drug therapy; Z86.711 Personal history of pulmonary embolism; Z86.73 Personal history of transient ischemic attack (TIA), and cerebral infarction without residual deficits; Z88.1 Allergy status to other antibiotic agents; Z88.6 Allergy status to analgesic agent; Z88.8 Allergy status to other drugs, medicaments and biological substances; Z91.040 Latex allergy status; Z95.0 Presence of cardiac pacemaker
CPT/HCPCS: 43235; 47562; 88304; J0131; J0690; J1100; J1885; J2370; J2405; J2765; J3010

== ENCOUNTER 2020-07-14 12:31 | Emergency (ER) | payer MEDICARE ==
[~2020-07-14] VITALS: Ht 177.8 cm; Wt 77.3 kg
[~2020-07-14 12:31] MED LIST changes: -ceFAZolin SOD 2 GM in IV 1 EA IV ONE
[2020-07-14] MEDS: NS 1,000 ML IV SCH ×3 (13:15→16:30)
[2020-07-14] MEDS ORDERED: NS 1,000 ML IV ONE (14:00)
[2020-07-14] MEDS ORDERED: ACETAMINOPHEN 325 MG TAB PO ONE (14:00)
[2020-07-14 14:30] LABS: BASO % 0.3 % (0.0-1.0); EOS % 0.1 % (0.0-3.0); HEMATOCRIT 44.8 % (42.0-52.0); HEMOGLOBIN 14.5 g/dl (13.5-17.5); LYMPH # 0.2 10^3/uL (1.5-5.0); LYMPH % 1.9 % (24.0-44.0); MEAN CORPUSCULAR HEMOGLOBIN 30.1 pg (27.0-33.0); MEAN CORPUSCULAR HGB CONC 32.4 g/dl (32.0-36.5); MEAN CORPUSCULAR VOLUME 93.1 fl (80.0-96.0); MONO # 1.1 10^3/uL (0.0-0.8); MONO % 8.4 % (0.0-5.0); NEUTROPHILS # 11.4 10^3/uL (1.5-8.5); NEUTROPHILS % 88.8 % (36.0-66.0); PLATELET COUNT, AUTOMATED 136 10^3/uL (150-450); RED BLOOD COUNT 4.81 10^6/uL (4.30-6.10); WHITE BLOOD COUNT 12.9 10^3/uL (4.0-10.0)
[2020-07-14 14:54] LABS: INR 1.02; PROTHROMBIN TIME 13.6 SECONDS (12.5-14.3)
[2020-07-14 14:55] LABS: PARTIAL THROMBOPLASTIN TIME 28.1 SECONDS (24.2-38.5)
[2020-07-14 15:01] LABS: ALBUMIN 3.4 GM/DL (3.2-5.2); BILIRUBIN,DIRECT 0.3 MG/DL (0.0-0.2); BILIRUBIN,TOTAL 0.9 MG/DL (0.2-1.0); C REACTIVE PROTEIN QUANTITATIV 0.57 MG/DL (0.00-0.30); CALCIUM LEVEL 9.4 MG/DL (8.8-10.2); CK-MB VALUE MASS 1.6 NG/ML (<3.6); CREATININE FOR GFR 1.45 MG/DL (0.70-1.30); MB/CK RELATIVE INDEX 1.44 (< OR =4); POTASSIUM SERUM 4.1 MEQ/L (3.5-5.1); TOTAL PROTEIN 6.4 GM/DL (6.4-8.2); TROPONIN I 0.03 NG/ML (< 0.10)
[2020-07-14 15:29] LABS: RSV AMPLIFICATION NEGATIVE (NEGATIVE)
--- NOTE | 2020-07-14 16:17 | REP ---
INDICATION: SEPSIS/SHOCK. COMPARISON: Comparison chest x-ray January 08, 2015. TECHNIQUE: Portable upright AP chest radiograph. FINDINGS: Right hemidiaphragm is slightly elevated. Median sternotomy wires are seen. A bipolar pacemaker is seen in the right heart. Heart size is borderline unchanged. Pulmonary vasculature is not increased. There is a granulomatous calcification in the right lung base. Lung boone are otherwise clear. There are advanced degenerative changes in the shoulders bilaterally. Thoracic aorta is somewhat tortuous and calcific.. IMPRESSION: Cardiomegaly with pacemaker. Prior sternotomy. No acute infiltrate.. <Electronically signed by Adrián Llamas > 07/14/20 [id number]
[2020-07-14 16:52] LABS: APPEARANCE, URINE CLEAR (CLEAR); BACTERIA, URINE AUTO NEGATIVE (NEGATIVE); BILIRUBIN, URINE AUTO NEGATIVE (NEGATIVE); BLOOD, URINE BLOOD NEGATIVE (NEGATIVE); COLOR, URINE AMBER (YELLOW); GLUCOSE, URINE (UA) AUTO NEGATIVE (NEGATIVE); KETONE, URINE AUTO TRACE mg/dL (NEGATIVE); LEUKOCYTE ESTERASE, URINE AUTO TRACE (NEGATIVE); MUCUS, URINE SMALL (NEGATIVE); NITRITE, URINE AUTO NEGATIVE (NEGATIVE); PROTEIN, URINE AUTO NEGATIVE (NEGATIVE); RBC, URINE AUTO 1 /HPF (0-3); SPECIFIC GRAVITY URINE AUTO 1.024 (1.002-1.035); SQUAMOUS EPITHELIAL CELL UR AU 0 /HPF (0-6); WBC, URINE AUTO 5 /HPF (0-3)
[2020-07-14] MEDS ORDERED: KEFL500C17 PO (17:21)
[2020-07-14] MEDS ORDERED: CEPHALEXIN 500 MG CAP PO ONE (17:30)
[2020-07-14 17:40] VITALS: BP 108/58
--- NOTE | 2020-07-15 06:49 | ECGEPIP ---
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
== END 2020-07-14 18:12 | disposition home or self-care (01) ==
LOC: EDBD 12:31 → M ED 12:31
DX: N39.0 Urinary tract infection, site not specified (principal); R50.9 Fever, unspecified; Z89.612 Acquired absence of left leg above knee; Z97.14 Presence of artificial left leg (complete) (partial); I12.9 Hypertensive chronic kidney disease with stage 1 through stage 4 chronic kidney disease, or unspecified chronic kidney disease; E78.5 Hyperlipidemia, unspecified; I25.2 Old myocardial infarction; N18.30 Chronic kidney disease, stage 3 unspecified; Z95.1 Presence of aortocoronary bypass graft; Z95.0 Presence of cardiac pacemaker; Z86.73 Personal history of transient ischemic attack (TIA), and cerebral infarction without residual deficits; Z86.711 Personal history of pulmonary embolism; Z88.6 Allergy status to analgesic agent; Z88.8 Allergy status to other drugs, medicaments and biological substances; Z91.040 Latex allergy status; Z88.1 Allergy status to other antibiotic agents; Z79.899 Other long term (current) drug therapy

== ENCOUNTER 2020-10-14 21:04 | Emergency (ER) | payer MEDICARE ==
[~2020-10-14] VITALS: Ht 172.7 cm; Wt 75.9 kg
[~2020-10-14 21:04] MED LIST changes: +GABA-282; +GABA-282 PO; -GABA-843; -GABA-843 PO; +KEFL500C17 PO; -LISI-538 PO; +LISI20TA33 PO; -MAG400TA PO; +MAGN400T35 PO; -MELA2.5C3 PO; +MELA2.5C4 PO
[2020-10-14 21:42] LABS: BASO % 0.4 % (0.0-1.0); EOS # 0.1 10^3/uL (0.0-0.5); EOS % 0.8 % (0.0-3.0); HEMATOCRIT 51.2 % (42.0-52.0); HEMOGLOBIN 16.9 g/dl (13.5-17.5); LYMPH # 1.3 10^3/uL (1.5-5.0); LYMPH % 18.4 % (24.0-44.0); MEAN CORPUSCULAR HEMOGLOBIN 30.5 pg (27.0-33.0); MEAN CORPUSCULAR VOLUME 92.4 fl (80.0-96.0); MONO # 0.8 10^3/uL (0.0-0.8); MONO % 11.5 % (2.0-8.0); NEUTROPHILS # 4.9 10^3/uL (1.5-8.5); NEUTROPHILS % 68.3 % (36.0-66.0); PLATELET COUNT, AUTOMATED 161 10^3/uL (150-450); RED BLOOD COUNT 5.54 10^6/uL (4.30-6.10); WHITE BLOOD COUNT 7.2 10^3/uL (4.0-10.0)
[2020-10-14 21:56] LABS: INR 0.92; PROTHROMBIN TIME 12.5 SECONDS (12.5-14.3)
[2020-10-14 21:57] LABS: PARTIAL THROMBOPLASTIN TIME 32.4 SECONDS (24.2-38.5)
[2020-10-14 22:08] LABS: ERYTHROCYTE SEDIMENTATION RATE 2 mm/hr (0-20)
--- NOTE | 2020-10-14 22:09 | REPVR ---
PROCEDURE INFORMATION: Exam: XR Chest Exam date and time: 10/14/2020 9:44 PM Age: 85 years old Clinical indication: Chest pain TECHNIQUE: Imaging protocol: XR of the chest Views: 1 view. COMPARISON: 1. MT PORTABLE CHEST X-RAY 07/14/2020 3:42 PM 2. CR Chest, 1 view 01/08/2015 6:32:11 PM FINDINGS: Tubes, catheters and devices: Median sternotomy suture wires are in place. There is dehiscence of the 2nd median sternotomy suture wire from the top. There is a left subclavian pacemaker device in place with intact leads projecting over the expected locations of the right atrium and right ventricle. Lungs: There is a calcified granuloma in the right lung base, which is stable compared to the prior chest x-rays on 07/14/2020 and 01/08/2015. No lung consolidation or pulmonary edema is noted. Pleural spaces: Unremarkable. No pleural effusion. No pneumothorax. Heart/Mediastinum: Postoperative changes are noted from a CABG. No cardiomegaly. Bones/joints: Both humeral heads are chronically high-riding, indicating chronic bilateral full-thickness rotator cuff tears. IMPRESSION: 1. No radiographic evidence for an acute cardiopulmonary process. 2. High riding humeral heads, indicating chronic bilateral full-thickness rotator cuff tears. Electronically signed by: Vince Stanley On 10/14/2020 22:09:28 PM
[2020-10-14 22:17] LABS: ALBUMIN 3.8 GM/DL (3.2-5.2); ALT/SGPT 16 U/L (12-78); BILIRUBIN,DIRECT 0.2 MG/DL (0.0-0.2); BILIRUBIN,TOTAL 0.5 MG/DL (0.2-1.0); BLOOD UREA NITROGEN 17 MG/DL (7-18); C REACTIVE PROTEIN QUANTITATIV 0.32 MG/DL (0.00-0.30); CALCIUM LEVEL 9.3 MG/DL (8.8-10.2); CARBON DIOXIDE LEVEL 28 MEQ/L (21-32); CHLORIDE LEVEL 98 MEQ/L (98-107); CK-MB VALUE MASS 2.4 NG/ML (<3.6); CPK CREATINE PHOSPHOKINASE 50 U/L (39-308); CREATININE FOR GFR 1.35 MG/DL (0.70-1.30); FREE T4 1.12 NG/DL (0.76-1.46); GLOMERULAR FILTRATION RATE 53.2 (>35); GLUCOSE, FASTING 108 MG/DL (70-100); LIPASE 53 U/L (73-393); NT-PRO BNP 1268 PG/ML (<450); POTASSIUM SERUM 4.8 MEQ/L (3.5-5.1); SODIUM LEVEL 132 MEQ/L (136-145); TROPONIN I < 0.02 NG/ML (< 0.10)
--- NOTE | 2020-10-14 23:30 | REPVR ---
PROCEDURE INFORMATION: Exam: CT Chest Without Contrast; Diagnostic Exam date and time: 10/14/2020 10:57 PM Age: 85 years old Clinical indication: Weakness; Prior surgery; Surgery date: 6+ months; Additional info: Weakness, possible CHF TECHNIQUE: Imaging protocol: Diagnostic computed tomography of the chest without contrast. 3D rendering (Not supervised by radiologist): MIP and/or 3D reconstructed images were created by the technologist. Radiation optimization: All CT scans at this facility use at least one of these dose optimization techniques: automated exposure control; mA and/or kV adjustment per patient size (includes targeted exams where dose is matched to clinical indication); or iterative reconstruction. COMPARISON: CR PORTABLE CHEST X-RAY 10/14/2020 9:39 PM FINDINGS: Tubes, catheters and devices: There is a left subclavian pacemaker in place with leads in the right atrium and right ventricle. Thyroid: There are several thyroid nodules, the largest in the left lobe measuring 10 mm. Lungs: There is a linear density in the left upper lobe, which is compatible with scarring. There is atelectasis in both lower lobes and in the inferior lingula. No lung consolidation or mass is noted. There are calcified granulomas in the lingula and both lower lobes. Pleural spaces: Unremarkable. No pneumothorax. No pleural effusion. Heart: No cardiomegaly. No pericardial effusion. There are coronary artery calcifications. Mediastinal space: No mediastinal mass, fluid collection, or pneumomediastinum. There is a large hiatal hernia. Aorta: There is no thoracic aortic aneurysm or intramural hematoma. There are moderate atherosclerotic calcifications. Lymph nodes: There are calcified prevascular, aortopulmonary window, subcarinal, and bilateral hilar lymph nodes, which represent calcified granulomas. No enlarged lymph nodes. Liver: Unremarkable. No liver lesion is identified. The contour of the liver is smooth. No hepatomegaly is noted. Gallbladder and bile ducts: There has been a cholecystectomy. There is no fluid collection in the gallbladder fossa. No dilation of the bile ducts is noted. There is mild pneumobilia in the left central intrahepatic bile duct. No calcified stones are seen in the common bile duct. Limited bowel: There is colonic diverticulosis. The bowel was not fully imaged. Bones/joints: Median sternotomy suture wires are in place. There is dehiscence of the 2nd median sternotomy suture wire from the top. The right humeral head is high-riding as result of a chronic full-thickness right rotator cuff tear. 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 There is a 3 mm ossified body in the right axillary pouch. The left glenohumeral joint was not imaged. There is severe fatty atrophy of the bilateral rotator cuff muscles. There is a 9 mm ossified body in the left subscapularis muscle. There has been a resection of the left 7th rib. Soft tissues: Unremarkable. No soft tissue fluid collection. IMPRESSION: 1. No acute findings in the chest. No CT evidence for CHF. 2. Large hiatal hernia. 3. Colonic diverticulosis. 4. Chronic full-thickness right rotator cuff tear. 5. Several thyroid nodules, the largest in the left lobe measuring 10 mm. See management guidelines below. COMMENTS: Consistent with the [employer]'s Incidental Findings Committee white paper (J Am Suzette Radiol 2015): In patients aged 35 years and older with an incidental thyroid nodule equal to or greater than 1.[address], MRI or extrathyroidal US, further evaluation with dedicated thyroid US is recommended for patients with normal life expectancy and without comorbidities. For smaller nodules without suspicious features, no further evaluation or follow up is recommended. Electronically signed by: Vince Stanley On 10/14/2020 23:30:43 PM
[2020-10-15 01:45] LABS: CK-MB VALUE MASS 2.1 NG/ML (<3.6); MB/CK RELATIVE INDEX 4.2 (< OR =4); TROPONIN I 0.02 NG/ML (< 0.10)
[2020-10-15 01:51] VITALS: BP 140/76
--- NOTE | 2020-10-15 05:39 | ECGEPIP ---
[facility] - ED Test Date: 2020-10-14 Pat Name: DORINA THORNTON Department: Room: - Gender: Male French Translator: Ulysses MCCULLOUGH : 1935 Requested By: CORINNA Small Order Number: [id number] Reading MD: Graham Estrada Measurements Intervals [place] Rate: 71 P: -22 AK: 120 QRS: -88 QRSD: 176 T: 232 QT: 458 QTc: 497 Interpretive Statements AV dual-paced rhythm SIMILAR TO 07/14/20 Electronically Signed on 10-15-2020 5:39:16 EDT by Graham Estrada
--- NOTE | 2020-10-15 14:28 | ED PDOC ---
Post-Departure Follow-Up ct chest faxed to [facility] for fu Guru Wong MD Oct 15, 2020 14:28
== END 2020-10-15 01:50 | disposition home or self-care (01) ==
LOC: M ED 21:04
DX: R53.1 Weakness (principal); K44.9 Diaphragmatic hernia without obstruction or gangrene; K57.30 Diverticulosis of large intestine without perforation or abscess without bleeding; M75.121 Complete rotator cuff tear or rupture of right shoulder, not specified as traumatic; E04.1 Nontoxic single thyroid nodule; I49.8 Other specified cardiac arrhythmias; I25.10 Atherosclerotic heart disease of native coronary artery without angina pectoris; I10 Essential (primary) hypertension; E78.5 Hyperlipidemia, unspecified; N18.30 Chronic kidney disease, stage 3 unspecified; Z86.711 Personal history of pulmonary embolism; Z86.718 Personal history of other venous thrombosis and embolism; Z95.1 Presence of aortocoronary bypass graft; Z79.899 Other long term (current) drug therapy; Z88.8 Allergy status to other drugs, medicaments and biological substances; Z88.1 Allergy status to other antibiotic agents; Z91.040 Latex allergy status

== ENCOUNTER 2020-12-25 03:25 | Inpatient (IN) | payer MEDICARE ==
[~2020-12-25] VITALS: Ht 167.6 cm; Wt 68.9 kg
[2020-12-25] MEDS ORDERED: MORPHINE 2 MG/ML 1ML VIAL (J2270) IV ONE ×2 (04:45→06:50)
[2020-12-25] MEDS ORDERED: ONDANSETRON 4MG/2ML VIAL IV ONE (04:45)
[2020-12-25] MEDS ORDERED: BOOSTRIX/ADACEL VACCINE (DIPHTH/PERTUSS/ACELL/TETANUS) 0.5ML SYR IM ONE (04:45)
--- NOTE | 2020-12-25 05:22 | REPVR ---
PROCEDURE INFORMATION: Exam: XR Left Femur Exam date and time: 12/25/2020 5:00 AM Age: 85 years old Clinical indication: Other: Trauma TECHNIQUE: Imaging protocol: XR Left femur. Views: 2 views. COMPARISON: US Duplex, Ext LOWER veins, bilat 01/02/2020 12:01 AM FINDINGS: Bones/joints: Amputation at the level of the mid femur. The proximal femur demonstrates no acute fractures. No destructive or erosive changes. Soft tissues: Multiple metallic densities are noted about the stump of the amputation. Soft tissues are relatively thin over the amputated margin of the femur. IMPRESSION: 1. 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 2. No acute fracture is seen. Electronically signed by: Cornelio Rosales On 12/25/2020 05:22:50 AM
[2020-12-25] MEDS ORDERED: METAL LOCK LOOP XX ONE (05:33)
[2020-12-25] MEDS: NS 1,000 ML IV SCH ×3 (06:01→21:00)
[2020-12-25 07:03] LABS: RSV AMPLIFICATION NEGATIVE (NEGATIVE)
[2020-12-25] MEDS ORDERED: PANT40TA29 PO (07:53)
[2020-12-25] MEDS ORDERED: CARV6.25 PO (07:54)
[2020-12-25 08:16] LABS: HEMATOCRIT 46.7 % (42.0-52.0); HEMOGLOBIN 15.4 g/dl (13.5-17.5); MEAN CORPUSCULAR HEMOGLOBIN 30.7 pg (27.0-33.0); MEAN CORPUSCULAR VOLUME 93.2 fl (80.0-96.0); PLATELET COUNT, AUTOMATED 126 10^3/uL (150-450); RED BLOOD COUNT 5.01 10^6/uL (4.30-6.10); WHITE BLOOD COUNT 9.1 10^3/uL (4.0-10.0)
--- NOTE | 2020-12-25 08:20 | CR ---
CONSULTATION DATE: 12/25/2020 BRIEF HISTORY OF PRESENT ILLNESS: The patient was walking on his back porch. Her artificial leg on his left leg caught something and he fell with pulling his leg and his artificial AKA prosthesis off and he ended up hitting the end of his stump. He has had severe pain since doing that and significant muscle spasm. He had some oozing of the site and I was asked to see the wound for recommendations. Patient does have some old blood on the site and because of his severe pain is being probably admitted to the Hospitalist service. PAST MEDICAL HISTORY: Significant for history of cholecystitis, history of cholecystectomy, common bile duct stone/stent placement, history of leg amputation, history of partial lobectomy, history of coronary artery disease with CABG and pacemaker implant, history of hernia repair, history of TIA, history of myocardial infarction, history of hypercholesterolemia, hypertension, pulmonary embolus, gout, peripheral neuropathy, spinal stenosis, vertigo. MEDICATIONS: 1. Allopurinol. 2. Calcium. 3. Gabapentin. 4. Magnesium oxide. 5. Meclizine. 6. Melatonin. 7. Pantoprazole. 8. Flomax. 9. Ultram. 10.Vitamin C. PHYSICAL EXAMINATION: He is an 85-year-old male who looks his stated age. HEENT is unremarkable. Lungs are clear anteriorly although diminished bilaterally. Heart is regular. Abdomen is soft, nontender. His left leg is in significant spasm and anytime he moves his leg he has shooting pains, it seems as though it is mostly in the groin area and along the midshaft of the proximal femur. Distally, his wound is in a crease and essentially it appears that his wound must have healed by secondary intention originally but the wound itself has some clefts and in the base of the cleft I can see some skin separation but it does not extend very deep and probably about 3-4 mm in depth but it is probably an inch up to two inches in length. IMPRESSION/PLAN: Patient has an open wound and at this time given its location and its presentation, I feel that just some wet to dry dressing changes on a b.i.d. basis while he is in the hospital is reasonable. When he is discharged to home it can be just once a day. He may need to have the Wound Clinic see him for this given its location, it is relatively going to be difficult to heal just being in the bottom of a cleft. More importantly, his major problem is his pain and it is either a significant groin strain or a muscle spasm, or some other abnormality from a musculoskeletal standpoint that may be better addressed by the Pain Clinic or the [facility]. From a General Surgery standpoint, I would recommend continuing with dressing changes, pain control as necessary.
[2020-12-25 08:38] LABS: BLOOD UREA NITROGEN 19 MG/DL (7-18); CARBON DIOXIDE LEVEL 27 MEQ/L (21-32); CHLORIDE LEVEL 103 MEQ/L (98-107); CREATININE FOR GFR 1.16 MG/DL (0.70-1.30); GLOMERULAR FILTRATION RATE > 60.0 (>35); GLUCOSE, FASTING 87 MG/DL (70-100); POTASSIUM SERUM 4.4 MEQ/L (3.5-5.1); SODIUM LEVEL 137 MEQ/L (136-145)
--- NOTE | 2020-12-25 08:46 | ECGEPIP ---
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
--- NOTE | 2020-12-25 08:47 | REPVR ---
PROCEDURE INFORMATION: Exam: CT Lumbar Spine Without Contrast Exam date and time: 12/25/2020 6:58 AM Age: 85 years old Clinical indication: Injury or trauma; Fall; Blunt trauma (contusions or hematomas); Additional info: Back pain TECHNIQUE: Imaging protocol: Computed tomography images of the lumbar spine without contrast. Radiation optimization: All CT scans at this facility use at least one of these dose optimization techniques: automated exposure control; mA and/or kV adjustment per patient size (includes targeted exams where dose is matched to clinical indication); or iterative reconstruction. COMPARISON: No relevant prior studies available. FINDINGS: Vertebrae: No acute fracture. There is S-shaped scoliosis. There is associated right lateral subluxation of L2 on L3. There is mild grade 1 retrolisthesis of L2 on L3 and L3 on L4. There are degenerative changes with disc height loss, marginal osteophytes, endplate sclerosis, diffuse disc bulges, and facet degenerative changes. L1-L2 shows no significant spinal stenosis and left greater than right neural foraminal narrowing. L2-L3 shows no significant spinal stenosis and left greater than right neural foraminal narrowing. L3-L4 shows likely moderate to severe spinal stenosis and right greater than left neural foraminal narrowing which is severe on right. L4-L5 shows moderate spinal stenosis and left greater than right neural foraminal narrowing which is severe on right. L5-S1 shows bilateral neural foraminal narrowing. Gallbladder and bile ducts: The gallbladder is surgically absent. Kidneys and ureters: Again seen are similar size multiple left renal. There is interval increased attenuation in a left lateral inferior cyst, likely is therefore hemorrhagic. Stomach and bowel: There is sigmoid diverticulosis. Vasculature: There is atherosclerotic change. There is stable 3.3 cm fusiform abdominal aortic aneurysm. There is stable dilatation of right common, external, and internal iliac arteries. The left common, external, and internal iliac arteries are small as before. Soft tissues: Unremarkable. IMPRESSION: 1. No acute fracture. 2. Degenerative changes and scoliosis. 3. Other findings as described. Electronically signed by: Bronwyn Duval On 12/25/2020 08:47:38 AM
[2020-12-25 10:15] VITALS: BP 119/75
[2020-12-25] MEDS: PANTOPRAZOLE 40MG TAB (PROTONIX) PO SCH (10:36)
[2020-12-25] MEDS: MECLIZINE 25 MG TABLET PO SCH ×2 (10:36→16:12)
[2020-12-25] MEDS: MORPHINE 2 MG/ML 1ML VIAL (J2270) IV PRN (10:36)
[2020-12-25] MEDS: allopurinoL 300 MG TAB PO SCH (10:36)
[2020-12-25] MEDS: GABAPENTIN 300 MG CAP PO SCH ×3 (10:36→20:59)
[2020-12-25] MEDS: CARVedilol 6.25 MG TAB PO SCH ×2 (10:37→20:59)
[2020-12-25] MEDS ORDERED: TOBRSUS8 OS (11:54)
[2020-12-25] MEDS ORDERED: REFR0.5D8 OU (11:54)
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
[2020-12-25] MEDS: TOBRADEX OPHTH SUSP 2.5 ML OS SCH ×2 (18:28→21:00)
[2020-12-25] MEDS: TAMSULOSIN 0.4 MG CAP PO SCH (20:59)
[2020-12-25] MEDS: ASCORBIC ACID 500 MG TAB PO SCH (20:59)
[2020-12-25 22:00] VITALS: BP 126/67
[2020-12-26] MEDS: MORPHINE 2 MG/ML 1ML VIAL (J2270) IV PRN (02:04)
[2020-12-26 05:54] LABS: HEMATOCRIT 43.7 % (42.0-52.0); MEAN CORPUSCULAR HEMOGLOBIN 31.1 pg (27.0-33.0); MEAN CORPUSCULAR VOLUME 97.1 fl (80.0-96.0); PLATELET COUNT, AUTOMATED 110 10^3/uL (150-450); WHITE BLOOD COUNT 9.1 10^3/uL (4.0-10.0)
[2020-12-26 06:00] VITALS: BP 118/58
[2020-12-26] MEDS ORDERED: CALCIUM CARBONATE 500 MG CHEW U/D PO PRN (06:10)
[2020-12-26 06:24] LABS: ALBUMIN 3.1 GM/DL (3.2-5.2); BILIRUBIN,TOTAL 0.7 MG/DL (0.2-1.0); CALCIUM LEVEL 8.4 MG/DL (8.8-10.2); CREATININE FOR GFR 1.32 MG/DL (0.70-1.30); GLOMERULAR FILTRATION RATE 54.6 (>35); POTASSIUM SERUM 5.2 MEQ/L (3.5-5.1); TOTAL PROTEIN 5.8 GM/DL (6.4-8.2)
[2020-12-26] MEDS ORDERED: PERCOCET 5MG/325MG TAB PO PRN (07:20)
[2020-12-26] MEDS: MECLIZINE 25 MG TABLET PO SCH ×2 (08:33→16:00)
[2020-12-26] MEDS: allopurinoL 300 MG TAB PO SCH (08:33)
[2020-12-26] MEDS: PANTOPRAZOLE 40MG TAB (PROTONIX) PO SCH (08:34)
[2020-12-26] MEDS: CARVedilol 6.25 MG TAB PO SCH ×2 (08:34→20:21)
[2020-12-26] MEDS: TOBRADEX OPHTH SUSP 2.5 ML OS SCH ×4 (08:34→20:15)
[2020-12-26] MEDS: GABAPENTIN 300 MG CAP PO SCH ×3 (08:34→20:06)
[2020-12-26] MEDS ORDERED: MORPHINE 2 MG/ML 1ML VIAL (J2270) IV ONE (09:40)
[2020-12-26] MEDS: NS 1,000 ML IV SCH (11:49)
[2020-12-26] MEDS ORDERED: MORPHINE 2 MG/ML 1ML VIAL (J2270) IV PRN (12:55)
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
[2020-12-26 14:00] VITALS: BP 123/60
[2020-12-26] MEDS: ACETAMINOPHEN 650 MG SUPP PR PRN ×2 (14:50→20:05)
[2020-12-26 15:20] LABS: APPEARANCE, URINE CLEAR (CLEAR); BACTERIA, URINE AUTO NEGATIVE (NEGATIVE); BILIRUBIN, URINE AUTO NEGATIVE (NEGATIVE); BLOOD, URINE BLOOD NEGATIVE (NEGATIVE); COLOR, URINE YELLOW (YELLOW); GLUCOSE, URINE (UA) AUTO NEGATIVE (NEGATIVE); KETONE, URINE AUTO NEGATIVE (NEGATIVE); LEUKOCYTE ESTERASE, URINE AUTO NEGATIVE (NEGATIVE); MUCUS, URINE SMALL (NEGATIVE); NITRITE, URINE AUTO NEGATIVE (NEGATIVE); PROTEIN, URINE AUTO NEGATIVE (NEGATIVE); RBC, URINE AUTO 3 /HPF (0-3); SPECIFIC GRAVITY URINE AUTO 1.011 (1.002-1.035); SQUAMOUS EPITHELIAL CELL UR AU 0 /HPF (0-6); UROBILINOGEN, URINE AUTO 0.2 mg/dL (0.0-2.0); WBC, URINE AUTO 0 /HPF (0-3)
[2020-12-26 15:21] VITALS: BP 145/66
[2020-12-26 15:37] LABS: BASO % 0.2 % (0.0-1.0); EOS # 0.1 10^3/uL (0.0-0.5); EOS % 0.6 % (0.0-3.0); HEMATOCRIT 44.8 % (42.0-52.0); HEMOGLOBIN 14.4 g/dl (13.5-17.5); LYMPH # 0.8 10^3/uL (1.5-5.0); LYMPH % 9.8 % (24.0-44.0); MEAN CORPUSCULAR HGB CONC 32.1 g/dl (32.0-36.5); MEAN CORPUSCULAR VOLUME 96.6 fl (80.0-96.0); MONO # 0.5 10^3/uL (0.0-0.8); MONO % 5.3 % (2.0-8.0); NEUTROPHILS # 7.2 10^3/uL (1.5-8.5); NEUTROPHILS % 83.7 % (36.0-66.0); PLATELET COUNT, AUTOMATED 116 10^3/uL (150-450); RED BLOOD COUNT 4.64 10^6/uL (4.30-6.10); WHITE BLOOD COUNT 8.6 10^3/uL (4.0-10.0)
[2020-12-26 15:42] VITALS: BP 123/85
[2020-12-26 15:45] VITALS: BP 114/72
[2020-12-26 15:50] LABS: ABG BASE EXCESS -3.3 (-2.0-2.0); ABG O2 SATURATION 92.9 % (95.0-99.0); ABG PARTIAL PRESSURE CO2 40.5 mmHg (35.0-45.0); ABG PARTIAL PRESSURE O2 62.6 mmHg (75.0-100.0); ABG STANDARD HCO3 21.6 MEQ/L (22.0-26.0); ABG TOTAL CO2 23.3 MEQ/L (23.0-31.0); ABG pH (ARTERIAL) 7.353 UNITS (7.350-7.450)
--- NOTE | 2020-12-26 15:50 | REP ---
INDICATION: SOB. COMPARISON: 10/14/2020. TECHNIQUE: Single portable AP view of the chest was performed. FINDINGS: There is cardiomegaly. There is vascular congestion and diffuse interstitial edema. Calcified granuloma is again seen in the right lung base. There is elevation of the right hemidiaphragm again noted. Multiple sternal wires and mediastinal clips are present. Left pacemaker is again noted. IMPRESSION: Cardiomegaly. There are findings of vascular congestion and diffuse interstitial edema. <Electronically signed by Kulwant Sifuentes > 12/26/20 [id number]
[2020-12-26 16:18] LABS: ALBUMIN 2.9 GM/DL (3.2-5.2); BILIRUBIN,TOTAL 0.5 MG/DL (0.2-1.0); C REACTIVE PROTEIN QUANTITATIV 5.86 MG/DL (0.00-0.30); CALCIUM LEVEL 7.5 MG/DL (8.8-10.2); CK-MB VALUE MASS 1.1 NG/ML (<3.6); CREATININE FOR GFR 1.36 MG/DL (0.70-1.30); FREE THYROXINE INDEX 1.9 % (1.4-3.8); GLOMERULAR FILTRATION RATE 52.8 (>35); MB/CK RELATIVE INDEX 1.53 (< OR =4); POTASSIUM SERUM 4.8 MEQ/L (3.5-5.1); THYROID STIMULATING HORMONE 0.902 uIU/ML (0.358-3.740); THYROXINE (T4) 5.9 UG/DL (4.5-12.0); TOTAL PROTEIN 5.6 GM/DL (6.4-8.2); TROPONIN I 0.03 NG/ML (< 0.10)
[2020-12-26 16:38] LABS: ERYTHROCYTE SEDIMENTATION RATE 2 mm/hr (0-20)
--- NOTE | 2020-12-26 16:45 | REPVR ---
PROCEDURE INFORMATION: Exam: CT Head Without Contrast Exam date and time: 12/26/2020 4:12 PM Age: 85 years old Clinical indication: Altered mental status/memory loss; Additional info: AMS TECHNIQUE: Imaging protocol: Computed tomography of the head without contrast. Radiation optimization: All CT scans at this facility use at least one of these dose optimization techniques: automated exposure control; mA and/or kV adjustment per patient size (includes targeted exams where dose is matched to clinical indication); or iterative reconstruction. COMPARISON: CT Head without contrast 08/31/2019 11:42 AM FINDINGS: Brain: Symmetric prominence of the cortical sulci. Small-vessel ischemic change with small bilateral basal ganglia lacunar infarcts. No acute cortical infarct, mass effect, or intracranial hemorrhage. Cerebral ventricles: Normal configuration of the ventricles. Paranasal sinuses: No sinus fluid. Mastoid air cells: No mastoid effusion. Vasculature: Vascular and dural calcification. Bones/joints: No acute calvarial pathology. Soft tissues: Unremarkable soft tissues. IMPRESSION: 1. Small-vessel ischemic change with small bilateral basal ganglia lacunar infarcts. 2. No acute cortical infarct or intracranial hemorrhage. Electronically signed by: Dariusz Walden On 12/26/2020 16:44:47 PM
[2020-12-26] MEDS: PIPERACILLIN/TAZOBACTAM SOD 4.5 GM in D5W MINI-BAG PLUS 50 ML IV SCH ×2 (16:47→21:29)
[2020-12-26] MEDS ORDERED: VANCOMYCIN HCL 750 MG, VIAL MATE ADAPTER 1 EACH in NS 250 ML IV ONE (17:00)
[2020-12-26] MEDS ORDERED: SLF 3 ML SYR IV PRN (17:15)
--- NOTE | 2020-12-26 17:30 | REP ---
INDICATION: ams. COMPARISON: Comparison chest x-ray is from December 26, 2020.. TECHNIQUE: Helical scanning is acquired. 3 mm axial images are generated. Coronal and sagittal MPR and coronal MIP images are generated. 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 The patient was unable to raise his arms above the scanned field. Median sternotomy wires are seen. On axial CT images, there are bilateral lower lobe infiltrates with air bronchograms. This these are fairly extensive. The upper lobes are spared. There is no evidence of pleural effusion. These infiltrates are new when compared with the October 14, [address] study. No mediastinal or hilar mass or adenopathy is observed. There is a moderate size hiatal hernia behind the heart. The gallbladder is surgically absent. The heart is enlarged. No bony destructive lesion is seen. IMPRESSION: Cardiomegaly with pacemaker. Moderate size hiatal hernia. Extensive infiltrates in the lower lobes bilaterally with air bronchograms consistent with pneumonia. No evidence of pleural effusion. <Electronically signed by Adrián Llamas > 12/26/20 [id number]
[2020-12-26] MEDS ORDERED: FUROSEMIDE 40MG/4ML VIAL (J1940) IV ONE (17:35)
[2020-12-26] MEDS ORDERED: VANCOMYCIN HCL 500 MG in D5W MINI-BAG PLUS 100 ML IV ONE (18:00)
--- NOTE | 2020-12-26 19:21 | IPNPDOC ---
Date Seen The patient was seen on 12/26/20. Progress Note SUBJECTIVE: I was part of the care team that responded to a code purple (sepsis) over the loud speaker at approximately 1445 this afternoon for Mr. Higgins. Timeline of events per his nurse Madeline prior to the Call of Haylee Amarjit: -Around 9:30 this morning, the patient reported being in significant pain and was administered morphine. Roughly 20 minutes later he began to settle down and reported his pain had resolved. -At noon, she was administered gabapentin, at which time he reported his pain was still resolved. The patient then ate lunch, after which he participated in physical therapy. -Patient returned from PT around 1400. -At 1415, patient's nurse did a scheduled vital check at which point the patient was exhibiting rigors and could not respond appropriately to questions and comma nds. His lips were cyanotic Prior to this episode, the patient had been alert and oriented 3. -1415 Vital signs check oxygen saturations in the 70s, HR 125, BP 123/85, FSBG 111, T102.3 (rectally), RR 25 -Patient was initially put on nasal cannula supplement oxygen before being switched to Ventimask and eventually to a nonrebreather. Upon my arrival into the room, patient was on a nonrebreather of 15 L supplemental oxygen with saturations initially of 86%. His eyes were closed, but when spoken to loudly, did respond to his name and would briefly open his eyes. He was unable to form insistent, intelligible speech. He had loud rhonchorous breath sounds with almost a buzzing the lips with expiration. OBJECTIVE PHYSICAL EXAMINATION: VITAL SIGNS: Please see below. GENERAL: Elderly male lying in bed on a nonrebreather. Audible coarse breath sounds from across the room. HEENT: Normocephalic, atraumatic. PERRLA. ORAL CAVITY: No pharyngeal erythema or exudate. No visible foreign body. CARDIOVASCULAR: Quite difficult to accurately assess heart sounds due to ambient breath sounds. Tachycardic rate. 2+ radial pulses bilaterally. RESPIRATORY: Audible coarse breath sounds bilaterally, with distinct crackles appreciated in the left base posteriorly. Tachypneic on 15 L of nonrebreather. Buzzing of his lips with expiration. Symmetrical chest expansion with decreased tidal volume. Mild accessory muscle use. ABDOMINAL: Hypo-to normoactive bowel sounds present. No rigidity appreciated. EXTREMITIES: Patient has a left [id number] amputation with wound at the end of his stump. There is some dried blood on the borders of the wound with an area of maceration on the lateral aspect. There is no visualized weeping, purulence, or appreciated fell odor. There is no active bleeding from the stump. Right lower extremities free pitting edema. Dorsalis pedis pulse on the right foot is intact. NEUROLOGICAL: Somnolent but does respond by opening his eyes when his name is called out quite loudly. He is hard of hearing. He cannot form consistent intelligible speech. LABORATORY DATA, IMAGING STUDIES, MICROBIOLOGY: Please see below. ASSESSMENT AND PLAN: #Acute altered mental status -Etiology unknown at this time -Initial labs of been ordered to assess for etiology of AMS (all results are pending at time of documentation): 2 blood cultures CBC with differential CMP lactic acid cardiac markers panel thyroid panel systemic inflammatory markers urinalysis with reflex to culture MRSA screen ABG wound culture of the left stump wound D-dimer BNP MRSA PCR -Diagnostic imaging was ordered to assess for etiology of AMS: 12-lead EKG borderline tachycardia (97 bpm) with borderline elongated QTC (477), atrial sensed, ventricularly paced rhythm. There appeared to be some ST elevations in anterior leads V3V5 that appear unchanged from EKG study done the day before. In the emergency department. There also appears to be inverted T waves in aVL that are more prominent today than on yesterday's study. Widened QRS. Portable chest x-ray CT Head w/o contrast CT Chest w/o contrast -A Zarate catheter was placed for critical monitoring, which immediately yielded light yellow colored urine. There did not appear to be any appreciable sedimentation performed in the urine on visualization. -Empiric antimicrobial administration was initiated in the form of intravenous vancomycin and zosyn. -Patient was transferred from the medical surgical floor to the progressive care unit with telemetry. Code status: Full code Attending Note I, Pepe Joseu MD, have independently examined this patient and performed my own physical exam, as well as reviewed the documentation and edited where necessary. I have discussed in detail with the resident / student the findings and plan of treatment as documented by the resident / student and edited their note. I agree with their findings and treatment plan and have edited their documentation. I will continue to follow the patient during this hospital stay. VS, I&O, 24H, [facility] Vital Signs/I&O Vital Signs Date Time Temp Pulse Resp B/P (MAP) Pulse Ox O2 Delivery O2 Flow Rate FiO2 12/26/20 15:45 100.4 94 20 114/72 (86) 94 Venturi Mask 15.0 I&O- Last 24 Hours up to 6 AM 12/26/20 06:00 Intake Total 2610 ml Output Total 975 ml Balance 1635 ml Laboratory Data 24H LABS Laboratory Tests 2 12/26/20 05:36: Nucleated Red Blood Cells % (auto) 0.0, Anion Gap 4L, Glomerular Filtration Rate 54.6, Calcium Level 8.4L, Total Bilirubin 0.7, Aspartate Amino Transf (AST/SGOT) 12, Alanine Aminotransferase (ALT/SGPT) 15, Alkaline Phosphatase 64, Total Protein 5.8L, Albumin 3.1L, Albumin/Globulin Ratio 1.1 12/26/20 15:07: Urine Color YELLOW, Urine Appearance CLEAR, Urine pH 5.0, Urine Specific Lorena 1.011, Urine Protein NEGATIVE, Urine Glucose (Auto)(UA) NEGATIVE, Urine Ketones (Auto) NEGATIVE, Urine Blood NEGATIVE, Urine Nitrite NEGATIVE, Urine Bilirubin NEGATIVE, Urine Urobilinogen 0.2, Urine Leukocyte Esterase (Auto) NEGATIVE, Urine WBC (Auto) 0, Urine RBC (Auto) 3, Urine Hyaline Casts (Auto) 0, Urine Bacteria (Auto) NEGATIVE, Urine Squamous Epithelial Cells 0, Urine Mucus (Auto) SMALL, Urine Sperm (Auto) 12/26/20 15:12: Nucleated Red Blood Cells % (auto) 0.0, Immature Granulocyte % (Auto) 0.4, Neutrophils (%) (Auto) 83.7H, Lymphocytes (%) (Auto) 9.8L, Monocytes (%) (Auto) 5.3, Eosinophils (%) (Auto) 0.6, Basophils (%) (Auto) 0.2, Neutrophils # (Auto) 7.2, Lymphocytes # (Auto) 0.8L, Monocytes # (Auto) 0.5, Eosinophils # (Auto) 0.1, Basophils # (Auto) 0.0, Erythrocyte Sedimentation Rate 2, Lactic Acid Level 1.2 12/26/20 15:15: Anion Gap 1L, Glomerular Filtration Rate 52.8, Calcium Level 7.5L, Total Bilirubin 0.5, Aspartate Amino Transf (AST/SGOT) 18, Alanine Aminotransferase (ALT/SGPT) 14, Alkaline Phosphatase 63, Total Protein 5.6L, Albumin 2.9L, Albumin/Globulin Ratio 1.1, Total Creatine Kinase 72, Creatine Kinase MB 1.1, Creatine Kinase MB Relative Index 1.53, Troponin I 0.03, C-Reactive Protein, Quantitative 5.86H, GL-Ubv-V-Type Natriuretic Peptide 1222H, Thyroid Stimulating Hormone (TSH) 0.902, Free Thyroxine Index 1.9, Thyroxine (T4) 5.9, Triiodo thyronine (T3) Uptake 32L 12/26/20 15:37: Blood Gas Bicarbonate Standard 21.6L, Arterial Blood pH 7.353, Arterial Blood Partial Pressure CO2 40.5, Arterial Blood Partial Pressure O2 62.6L, Arterial Blood Total CO2 23.3, Arterial Blood HCO3 22.0, Arterial Blood Base Excess -3.3L, Arterial Blood Oxygen Saturation 92.9L 12/26/20 16:55: Methicillin-Resist S.aureus DNA PCR NOT DETECTED 12/26/20 17:02: D-Dimer, Quantitative > 4000H 12/26/20 17:44: Procalcitonin 2.54 12/26/20 18:55: CBC/BMP Laboratory Tests 12/26/20 05:36 12/26/20 15:12 12/26/20 15:15 Microbiology Microbiology 12/26/20 Respiratory Virus Panel (PCR) ([facility]), Received Pending 12/26/20 Gram Stain, Received Pending 12/26/20 Wound Culture, Received Pending 12/26/20 Blood Culture, Received Pending 12/26/20 Blood Culture, Received Pending 12/26/20 Urine Culture, Received Pending HALINA PARHAM D.O. Dec 26, 2020 19:21 PEPE JOSUE MD Jan 07, 2021 01:59
[2020-12-26 19:47] LABS: CK-MB VALUE MASS 1.5 NG/ML (<3.6); MB/CK RELATIVE INDEX 1.52 (< OR =4); TROPONIN I 0.16 NG/ML (< 0.10)
[2020-12-26 20:00] VITALS: BP 100/54
[2020-12-26] MEDS: TAMSULOSIN 0.4 MG CAP PO SCH (20:05)
[2020-12-26] MEDS: ASCORBIC ACID 500 MG TAB PO SCH (20:13)
[2020-12-26] MEDS: SLF 3 ML SYR IV SCH (21:29)
[2020-12-26] MEDS ORDERED: NS 1,000 ML IV SCH (21:35)
--- NOTE | 2020-12-26 21:35 | IPNPDOC ---
Text Note Date of Service The patient was seen on 12/26/20. NOTE #Hypotension It was noted that fluids were held bc of concerns that the patient might develop fluid overload, but per d/w the patient's RN Fransico the MAP dropped from 111 earlier on today to 69 therefore we will start NS at 60ml/H. VS,Fishbone, I+O VS, Fishbone, I+O Laboratory Tests 12/26/20 05:36 12/26/20 15:12 12/26/20 15:15 Vital Signs Date Time Temp Pulse Resp B/P (MAP) Pulse Ox O2 Delivery O2 Flow Rate FiO2 12/26/20 20:21 84 100/54 12/26/20 20:00 102.4 20 92 Nasal Cannula 4.0 I&O- Last 24 Hours up to 6 AM 12/26/20 06:00 Intake Total 2610 ml Output Total 975 ml Balance 1635 ml JEROME BROOKS MD Dec 26, 2020 21:34
--- NOTE | 2020-12-26 22:33 | REPVR ---
PROCEDURE INFORMATION: Exam: US Duplex Lower Extremity Veins, Bilateral Exam date and time: 12/26/2020 9:56 PM Age: 85 years old Clinical indication: Edema, localized; Lower extremity, right; Prior surgery; Surgery date: 6+ months; Surgery type: S/P lt leg amputation at prox thigh; Additional info: ? Dvt, bilateral lower left stump and right leg TECHNIQUE: Imaging protocol: Real-time duplex ultrasound of the extremities with 2-D mckeon scale, color Doppler flow and spectral waveform analysis with image documentation. Complete exam focused on the bilateral lower extremity veins. COMPARISON: US Duplex, Ext LOWER veins, bilat 01/02/2020 12:01 AM FINDINGS: Right deep veins: Unremarkable. The common femoral, femoral, proximal profunda femoral, popliteal and visualized calf veins are patent without thrombus. Normal Doppler waveforms. Normal compressibility and/or augmentation response. Right superficial veins: Saphenofemoral junction is patent without thrombus. Left deep veins: Status post amputation at the level of the proximal thigh. The common femoral and proximal femoral veins are patent without thrombus. Normal Doppler waveforms. Normal compressibility and/or augmentation response. Left superficial veins: Saphenofemoral junction is patent without thrombus. Soft tissues: Unremarkable. IMPRESSION: No sonographic evidence of deep vein thrombosis. Electronically signed by: Burak Shepherd On 12/26/2020 22:33:01 PM
[2020-12-27] VITALS: BP 98/52
[2020-12-27] MEDS: ACETAMINOPHEN TAB 650MG DOSE (2X325MG) PO PRN ×3 (02:29→20:29)
[2020-12-27 04:00] VITALS: BP 105/59
[2020-12-27 05:35] LABS: HEMATOCRIT 41.5 % (42.0-52.0); HEMOGLOBIN 13.4 g/dl (13.5-17.5); MEAN CORPUSCULAR HEMOGLOBIN 31.2 pg (27.0-33.0); MEAN CORPUSCULAR HGB CONC 32.3 g/dl (32.0-36.5); MEAN CORPUSCULAR VOLUME 96.7 fl (80.0-96.0); RED BLOOD COUNT 4.29 10^6/uL (4.30-6.10); WHITE BLOOD COUNT 13.8 10^3/uL (4.0-10.0)
[2020-12-27] MEDS: SLF 3 ML SYR IV SCH ×3 (05:50→20:29)
[2020-12-27 06:00] LABS: CALCIUM LEVEL 7.6 MG/DL (8.8-10.2); CREATININE FOR GFR 1.65 MG/DL (0.70-1.30); GLOMERULAR FILTRATION RATE 42.2 (>35)
[2020-12-27 06:42] LABS: PLATELET COUNT, AUTOMATED 91 10^3/uL (150-450)
[2020-12-27 06:48] LABS: ATYPICAL LYMPH 1 % (0-5); LYMPHOCYTES 5 % (16-44); METAMYELOCYTES 2 % (0-0); MONOCYTES 4 % (0-5); NEUTROPHILS 64 % (28-66)
[2020-12-27 06:51] LABS: PLATELET ESTIMATE DECREASED (NORMAL)
[2020-12-27 07:11] LABS: CK-MB VALUE MASS 1.7 NG/ML (<3.6); MB/CK RELATIVE INDEX 1.33 (< OR =4); TROPONIN I 0.09 NG/ML (< 0.10)
[2020-12-27] MEDS: PIPERACILLIN/TAZOBACTAM SOD 4.5 GM in D5W MINI-BAG PLUS 50 ML IV SCH ×3 (07:28→23:26)
[2020-12-27 07:30] VITALS: BP 115/54
[2020-12-27] MEDS: PANTOPRAZOLE 40MG TAB (PROTONIX) PO SCH (08:30)
[2020-12-27] MEDS: CARVedilol 6.25 MG TAB PO SCH ×2 (08:30→21:00)
[2020-12-27] MEDS: GABAPENTIN 300 MG CAP PO SCH ×3 (08:30→20:28)
[2020-12-27] MEDS: MECLIZINE 25 MG TABLET PO SCH ×2 (08:30→15:39)
[2020-12-27] MEDS: allopurinoL 300 MG TAB PO SCH (08:30)
[2020-12-27] MEDS: TOBRADEX OPHTH SUSP 2.5 ML OS SCH ×4 (08:31→20:29)
[2020-12-27] MEDS ORDERED: VANCOMYCIN HCL 1,000 MG, VIAL MATE ADAPTER 1 EACH in NS 250 ML IV SCH (09:00)
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
[2020-12-27 12:00] VITALS: BP 107/52
[2020-12-27] MEDS ORDERED: SENNA 8.6 MG TAB (SENOKOT) PO PRN (15:20)
[2020-12-27] MEDS ORDERED: DOCUSATE SODIUM 100MG CAPSULE PO PRN (15:20)
[2020-12-27 16:00] VITALS: BP 123/56
[2020-12-27 20:00] VITALS: BP 107/55
[2020-12-27] MEDS: TAMSULOSIN 0.4 MG CAP PO SCH (20:29)
[2020-12-27] MEDS: ASCORBIC ACID 500 MG TAB PO SCH (20:29)
[2020-12-28] VITALS: BP 114/65
[2020-12-28 04:00] VITALS: BP 117/66
[2020-12-28 04:00] LABS: HEMATOCRIT 36.8 % (42.0-52.0); MEAN CORPUSCULAR HEMOGLOBIN 30.8 pg (27.0-33.0); MEAN CORPUSCULAR HGB CONC 32.6 g/dl (32.0-36.5); MEAN CORPUSCULAR VOLUME 94.6 fl (80.0-96.0); PLATELET COUNT, AUTOMATED 89 10^3/uL (150-450); RED BLOOD COUNT 3.89 10^6/uL (4.30-6.10); WHITE BLOOD COUNT 12.8 10^3/uL (4.0-10.0)
[2020-12-28 04:24] LABS: CALCIUM LEVEL 7.9 MG/DL (8.8-10.2); CREATININE FOR GFR 1.47 MG/DL (0.70-1.30); GLOMERULAR FILTRATION RATE 48.2 (>35); POTASSIUM SERUM 3.7 MEQ/L (3.5-5.1)
[2020-12-28 04:40] LABS: ATYPICAL LYMPH 1 % (0-5); EOSINOPHILS 4 % (0-3); LYMPHOCYTES 8 % (16-44); MONOCYTES 4 % (0-5); NEUTROPHILS 80 % (28-66)
[2020-12-28 04:41] LABS: PLATELET CLUMPS SMALL AMT; PLATELET ESTIMATE NORMAL (NORMAL)
[2020-12-28 04:42] LABS: ANISOCYTOSIS 1+
[2020-12-28] MEDS: PIPERACILLIN/TAZOBACTAM SOD 4.5 GM in D5W MINI-BAG PLUS 50 ML IV SCH ×3 (05:57→22:14)
[2020-12-28] MEDS: SLF 3 ML SYR IV SCH ×3 (05:57→20:09)
[2020-12-28 08:07] VITALS: BP 122/60
[2020-12-28] MEDS: GABAPENTIN 300 MG CAP PO SCH ×3 (08:34→20:06)
[2020-12-28] MEDS: TOBRADEX OPHTH SUSP 2.5 ML OS SCH ×4 (08:35→20:07)
[2020-12-28] MEDS: allopurinoL 300 MG TAB PO SCH (08:35)
[2020-12-28] MEDS: MECLIZINE 25 MG TABLET PO SCH ×2 (08:35→16:04)
[2020-12-28] MEDS: PANTOPRAZOLE 40MG TAB (PROTONIX) PO SCH (08:35)
[2020-12-28] MEDS: CARVedilol 6.25 MG TAB PO SCH ×2 (08:35→20:07)
[2020-12-28] MEDS: VANCOMYCIN HCL 1,000 MG, VIAL MATE ADAPTER 1 EACH in NS 250 ML IV SCH (09:53)
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
[2020-12-28 11:52] VITALS: BP 136/62
[2020-12-28 16:00] VITALS: BP 127/59
--- NOTE | 2020-12-28 16:07 | ECGEPIP ---
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
--- NOTE | 2020-12-28 16:12 | ECGEPIP ---
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
[2020-12-28 20:00] VITALS: BP 145/75
[2020-12-28] MEDS: TAMSULOSIN 0.4 MG CAP PO SCH (20:06)
[2020-12-28] MEDS: ASCORBIC ACID 500 MG TAB PO SCH (20:07)
[2020-12-29] VITALS: BP 122/54
[2020-12-29] MEDS: VANCOMYCIN HCL 1,000 MG, VIAL MATE ADAPTER 1 EACH in NS 250 ML IV SCH (03:38)
[2020-12-29 04:00] VITALS: BP 150/70
[2020-12-29 06:08] LABS: BASO # 0.1 10^3/uL (0.0-0.2); BASO % 0.5 % (0.0-1.0); EOS # 0.2 10^3/uL (0.0-0.5); EOS % 1.7 % (0.0-3.0); HEMATOCRIT 37.9 % (42.0-52.0); HEMOGLOBIN 12.2 g/dl (13.5-17.5); LYMPH % 9.8 % (24.0-44.0); MEAN CORPUSCULAR HEMOGLOBIN 30.7 pg (27.0-33.0); MEAN CORPUSCULAR HGB CONC 32.2 g/dl (32.0-36.5); MEAN CORPUSCULAR VOLUME 95.2 fl (80.0-96.0); MONO # 0.7 10^3/uL (0.0-0.8); MONO % 7.5 % (2.0-8.0); NEUTROPHILS # 7.7 10^3/uL (1.5-8.5); NEUTROPHILS % 79.9 % (36.0-66.0); PLATELET COUNT, AUTOMATED 124 10^3/uL (150-450); RED BLOOD COUNT 3.98 10^6/uL (4.30-6.10); WHITE BLOOD COUNT 9.7 10^3/uL (4.0-10.0)
[2020-12-29] MEDS: SLF 3 ML SYR IV SCH ×3 (06:11→22:42)
[2020-12-29] MEDS: PIPERACILLIN/TAZOBACTAM SOD 4.5 GM in D5W MINI-BAG PLUS 50 ML IV SCH (06:29)
[2020-12-29 06:36] LABS: CALCIUM LEVEL 8.3 MG/DL (8.8-10.2); CREATININE FOR GFR 1.26 MG/DL (0.70-1.30); GLOMERULAR FILTRATION RATE 57.6 (>35)
[2020-12-29 07:58] VITALS: BP 134/61
[2020-12-29] MEDS: GABAPENTIN 300 MG CAP PO SCH ×3 (08:17→20:27)
[2020-12-29] MEDS: AZITHROMYCIN INJ 500 MG, VIAL MATE ADAPTER 1 EACH in NS 250 ML IV SCH (08:17)
[2020-12-29] MEDS: CARVedilol 6.25 MG TAB PO SCH ×2 (08:17→20:27)
[2020-12-29] MEDS: allopurinoL 300 MG TAB PO SCH (08:18)
[2020-12-29] MEDS: TOBRADEX OPHTH SUSP 2.5 ML OS SCH ×4 (08:18→20:25)
[2020-12-29] MEDS: PANTOPRAZOLE 40MG TAB (PROTONIX) PO SCH (08:18)
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
[2020-12-29] MEDS: MECLIZINE 25 MG TABLET PO SCH ×2 (08:46→16:00)
[2020-12-29 16:00] VITALS: BP_SYST 120; BP_SYST 145; BP_DIAS 60; BP_DIAS 67
[2020-12-29 20:00] VITALS: BP 141/96
[2020-12-29] MEDS: ASCORBIC ACID 500 MG TAB PO SCH (20:27)
[2020-12-29] MEDS: TAMSULOSIN 0.4 MG CAP PO SCH (20:27)
[2020-12-30 04:00] VITALS: BP 146/73
[2020-12-30] MEDS: SLF 3 ML SYR IV SCH ×3 (05:01→22:00)
[2020-12-30 05:38] LABS: BASO % 0.3 % (0.0-1.0); EOS # 0.1 10^3/uL (0.0-0.5); EOS % 1.5 % (0.0-3.0); HEMATOCRIT 38.2 % (42.0-52.0); HEMOGLOBIN 12.6 g/dl (13.5-17.5); LYMPH % 10.8 % (24.0-44.0); MEAN CORPUSCULAR HEMOGLOBIN 30.7 pg (27.0-33.0); MEAN CORPUSCULAR VOLUME 92.9 fl (80.0-96.0); MONO # 0.9 10^3/uL (0.0-0.8); MONO % 10.1 % (2.0-8.0); NEUTROPHILS # 7.1 10^3/uL (1.5-8.5); NEUTROPHILS % 76.4 % (36.0-66.0); PLATELET COUNT, AUTOMATED 139 10^3/uL (150-450); RED BLOOD COUNT 4.11 10^6/uL (4.30-6.10); WHITE BLOOD COUNT 9.2 10^3/uL (4.0-10.0)
[2020-12-30 05:57] LABS: BLOOD UREA NITROGEN 15 MG/DL (7-18); CALCIUM LEVEL 8.7 MG/DL (8.8-10.2); CARBON DIOXIDE LEVEL 25 MEQ/L (21-32); CHLORIDE LEVEL 107 MEQ/L (98-107); CREATININE FOR GFR 1.02 MG/DL (0.70-1.30); GLOMERULAR FILTRATION RATE > 60.0 (>35); GLUCOSE, FASTING 90 MG/DL (70-100); POTASSIUM SERUM 3.9 MEQ/L (3.5-5.1); SODIUM LEVEL 137 MEQ/L (136-145)
[2020-12-30 08:18] VITALS: BP 157/71
[2020-12-30] MEDS ORDERED: FUROSEMIDE 40 MG TAB PO SCH (09:00)
[2020-12-30] MEDS: PANTOPRAZOLE 40MG TAB (PROTONIX) PO SCH (09:27)
[2020-12-30] MEDS: GABAPENTIN 300 MG CAP PO SCH ×3 (09:27→20:30)
[2020-12-30] MEDS: guaiFENesin ER 600 MG TAB PO SCH ×2 (09:28→20:30)
[2020-12-30] MEDS: TOBRADEX OPHTH SUSP 2.5 ML OS SCH ×4 (09:28→20:28)
[2020-12-30] MEDS: CARVedilol 6.25 MG TAB PO SCH ×2 (09:28→20:31)
[2020-12-30] MEDS: AZITHROMYCIN INJ 500 MG, VIAL MATE ADAPTER 1 EACH in NS 250 ML IV SCH (09:28)
[2020-12-30] MEDS: allopurinoL 300 MG TAB PO SCH (09:28)
[2020-12-30] MEDS: MECLIZINE 25 MG TABLET PO SCH ×2 (09:30→17:11)
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
[2020-12-30] MEDS: HEPARIN SOD (PORCINE) 5000UNITS/ML 1ML VIAL/SYRINGE SQ SCH ×2 (12:41→20:30)
[2020-12-30 16:10] VITALS: BP 130/70
[2020-12-30 20:05] VITALS: BP 129/67
[2020-12-30] MEDS: ASCORBIC ACID 500 MG TAB PO SCH (20:30)
[2020-12-30] MEDS: TAMSULOSIN 0.4 MG CAP PO SCH (20:31)
[2020-12-31 04:04] VITALS: BP 110/57
[2020-12-31 05:38] LABS: BASO # 0.1 10^3/uL (0.0-0.2); BASO % 0.6 % (0.0-1.0); EOS # 0.2 10^3/uL (0.0-0.5); EOS % 1.7 % (0.0-3.0); HEMATOCRIT 41.7 % (42.0-52.0); HEMOGLOBIN 13.7 g/dl (13.5-17.5); LYMPH # 1.1 10^3/uL (1.5-5.0); LYMPH % 12.5 % (24.0-44.0); MEAN CORPUSCULAR HEMOGLOBIN 30.7 pg (27.0-33.0); MEAN CORPUSCULAR HGB CONC 32.9 g/dl (32.0-36.5); MEAN CORPUSCULAR VOLUME 93.5 fl (80.0-96.0); MONO # 1.1 10^3/uL (0.0-0.8); MONO % 12.2 % (2.0-8.0); NEUTROPHILS # 6.4 10^3/uL (1.5-8.5); PLATELET COUNT, AUTOMATED 145 10^3/uL (150-450); RED BLOOD COUNT 4.46 10^6/uL (4.30-6.10); WHITE BLOOD COUNT 8.9 10^3/uL (4.0-10.0)
[2020-12-31] MEDS: SLF 3 ML SYR IV SCH ×3 (05:42→21:37)
[2020-12-31 05:59] LABS: BLOOD UREA NITROGEN 18 MG/DL (7-18); CALCIUM LEVEL 8.8 MG/DL (8.8-10.2); CARBON DIOXIDE LEVEL 29 MEQ/L (21-32); CHLORIDE LEVEL 103 MEQ/L (98-107); CREATININE FOR GFR 1.21 MG/DL (0.70-1.30); GLOMERULAR FILTRATION RATE > 60.0 (>35); GLUCOSE, FASTING 104 MG/DL (70-100); POTASSIUM SERUM 4.2 MEQ/L (3.5-5.1); SODIUM LEVEL 137 MEQ/L (136-145)
[2020-12-31] MEDS ORDERED: LevoFLOXacin 750 MG TABLET PO SCH (06:00)
[2020-12-31 07:01] VITALS: BP_SYST 101; BP_SYST 122; BP_DIAS 56; BP_DIAS 66
[2020-12-31 07:17] LABS: C REACTIVE PROTEIN QUANTITATIV 5.94 MG/DL (0.00-0.30)
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
--- NOTE | 2020-12-31 09:00 | REP ---
INDICATION: Hypoxia COMPARISON: 12/26/2020. TECHNIQUE: PA/Lateral FINDINGS: The heart mediastinum are unchanged. Vascular congestion and interstitial edema have improved. There is elevation of the right hemidiaphragm. There is increased consolidative atelectasis or infiltrate in the left lower lobe. Multiple sternal wires and mediastinal clips are present. Left pacemaker is again noted. There are mild degenerative changes of the spine without compression deformity. Both humeral heads are high riding compatible with bilateral rotator cuff tears. IMPRESSION: Improved vascular congestion and interstitial edema. Increased consolidative atelectasis or infiltrate left lower lobe. <Electronically signed by Kulwant Sifuentes > 12/31/20 [id number]
[2020-12-31] MEDS: allopurinoL 300 MG TAB PO SCH (09:10)
[2020-12-31] MEDS: guaiFENesin ER 600 MG TAB PO SCH ×2 (09:10→21:36)
[2020-12-31] MEDS: CARVedilol 6.25 MG TAB PO SCH ×2 (09:10→21:36)
[2020-12-31] MEDS: HEPARIN SOD (PORCINE) 5000UNITS/ML 1ML VIAL/SYRINGE SQ SCH ×2 (09:10→21:34)
[2020-12-31] MEDS: PANTOPRAZOLE 40MG TAB (PROTONIX) PO SCH (09:10)
[2020-12-31] MEDS: MECLIZINE 25 MG TABLET PO SCH ×2 (09:10→16:36)
[2020-12-31] MEDS: GABAPENTIN 300 MG CAP PO SCH ×3 (09:11→21:34)
[2020-12-31] MEDS: TOBRADEX OPHTH SUSP 2.5 ML OS SCH ×4 (09:11→22:06)
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
[2020-12-31 20:00] VITALS: BP 133/65
[2020-12-31] MEDS: ASCORBIC ACID 500 MG TAB PO SCH (21:36)
[2020-12-31] MEDS: TAMSULOSIN 0.4 MG CAP PO SCH (21:36)
[2021-01-01] MEDS: SLF 3 ML SYR IV SCH ×2 (05:22→14:00)
[2021-01-01 06:53] VITALS: BP 129/67
[2021-01-01 07:06] LABS: BASO # 0.1 10^3/uL (0.0-0.2); BASO % 0.7 % (0.0-1.0); EOS # 0.1 10^3/uL (0.0-0.5); HEMATOCRIT 41.5 % (42.0-52.0); HEMOGLOBIN 13.8 g/dl (13.5-17.5); LYMPH # 1.3 10^3/uL (1.5-5.0); LYMPH % 16.3 % (24.0-44.0); MEAN CORPUSCULAR HEMOGLOBIN 31.2 pg (27.0-33.0); MEAN CORPUSCULAR HGB CONC 33.3 g/dl (32.0-36.5); MEAN CORPUSCULAR VOLUME 93.9 fl (80.0-96.0); MONO # 1.1 10^3/uL (0.0-0.8); MONO % 13.1 % (2.0-8.0); NEUTROPHILS # 5.3 10^3/uL (1.5-8.5); NEUTROPHILS % 66.3 % (36.0-66.0); PLATELET COUNT, AUTOMATED 158 10^3/uL (150-450); RED BLOOD COUNT 4.42 10^6/uL (4.30-6.10)
[2021-01-01 07:34] LABS: CALCIUM LEVEL 8.3 MG/DL (8.8-10.2); CREATININE FOR GFR 1.29 MG/DL (0.70-1.30); GLOMERULAR FILTRATION RATE 56.1 (>35); MAGNESIUM LEVEL 2.1 MG/DL (1.8-2.4); POTASSIUM SERUM 4.1 MEQ/L (3.5-5.1)
[2021-01-01] MEDS: TOBRADEX OPHTH SUSP 2.5 ML OS SCH ×2 (08:43→12:09)
[2021-01-01 08:44] VITALS: BP 127/66
[2021-01-01] MEDS: guaiFENesin ER 600 MG TAB PO SCH (08:44)
[2021-01-01] MEDS: HEPARIN SOD (PORCINE) 5000UNITS/ML 1ML VIAL/SYRINGE SQ SCH (08:44)
[2021-01-01] MEDS: allopurinoL 300 MG TAB PO SCH (08:44)
[2021-01-01] MEDS: CARVedilol 6.25 MG TAB PO SCH (08:44)
[2021-01-01] MEDS: GABAPENTIN 300 MG CAP PO SCH ×2 (08:45→12:09)
[2021-01-01] MEDS: PANTOPRAZOLE 40MG TAB (PROTONIX) PO SCH (08:45)
[2021-01-01] MEDS: MECLIZINE 25 MG TABLET PO SCH (08:45)
[2021-01-01] MEDS ORDERED: LEVO750T13 PO (09:48)
[2021-01-01] MEDS ORDERED: MUCI600T31 PO (09:48)
[2021-01-01] MEDS ORDERED: MOXI1TAB PO (10:17)
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
[2021-01-01 14:00] VITALS: BP 122/66
== END 2021-01-01 15:50 | disposition home or self-care (01) | DRG 562 ==
LOC: M ED 03:25 → M ED INP 09:00 → ENRESERV 09:25 → M MSPAV 10:07 → M PCU 12-26 15:19 → M MS5PR 12-31 18:07
PROVIDERS: ADMIT Internal Medicine; ATTEND Internal Medicine
DX: S86.912A Strain of unspecified muscle(s) and tendon(s) at lower leg level, left leg, initial encounter (principal); A41.9 Sepsis, unspecified organism; J69.0 Pneumonitis due to inhalation of food and vomit; G93.41 Metabolic encephalopathy; I25.10 Atherosclerotic heart disease of native coronary artery without angina pectoris; I25.2 Old myocardial infarction; M10.9 Gout, unspecified; E78.5 Hyperlipidemia, unspecified; I10 Essential (primary) hypertension; N40.0 Benign prostatic hyperplasia without lower urinary tract symptoms; M62.838 Other muscle spasm; R09.02 Hypoxemia; R13.10 Dysphagia, unspecified; M48.061 Spinal stenosis, lumbar region without neurogenic claudication; E87.70 Fluid overload, unspecified; S81.802A Unspecified open wound, left lower leg, initial encounter; W18.09XA Striking against other object with subsequent fall, initial encounter; Y92.018 Other place in single-family (private) house as the place of occurrence of the external cause; Y99.8 Other external cause status; Z88.6 Allergy status to analgesic agent; Z88.8 Allergy status to other drugs, medicaments and biological substances; Z91.040 Latex allergy status; Y93.89 Activity, other specified; Z89.612 Acquired absence of left leg above knee; Z95.0 Presence of cardiac pacemaker; Z90.2 Acquired absence of lung [part of]; Z20.822 Contact with and (suspected) exposure to COVID-19; Z95.1 Presence of aortocoronary bypass graft; Z86.711 Personal history of pulmonary embolism; Z86.73 Personal history of transient ischemic attack (TIA), and cerebral infarction without residual deficits; Z87.891 Personal history of nicotine dependence; Z79.899 Other long term (current) drug therapy

== ENCOUNTER 2021-03-13 11:30 | Day surgery (SDC) | payer MEDICARE ==
[~2021-03-13] VITALS: Ht 167.6 cm; Wt 63.5 kg
[~2021-03-13 11:30] MED LIST changes: +CARV6.25 PO; +LEVO750T13 PO; +MOXI1TAB PO; +MUCI600T31 PO; +REFR0.5D8 OU; +TOBRSUS8 OS
[2021-03-13] MEDS ORDERED: LIDOCAINE 1% SDV 30ML VIAL As Ordered ONE (12:01)
[2021-03-13] MEDS ORDERED: BACITRACIN OINTMENT 30GM TUBE As Ordered ONE (12:01)
[2021-03-13] MEDS ORDERED: VANCOMYCIN 500MG/10ML VIAL As Ordered ONE (12:02)
[2021-03-13] MEDS ORDERED: ceFAZolin SOD 2 GM in IV 1 EA IV ONE (13:00)
[2021-03-13] MEDS ORDERED: LIDOCAINE 2% 100MG/5ML SDV (FOR ANES.) As Ordered ONE (13:13)
[2021-03-13] MEDS ORDERED: propofoL 200 MG/20 ML VIAL As Ordered ONE (13:13)
[2021-03-13] MEDS ORDERED: fentaNYL 100 MCG/2 ML INJECTION (J3010) As Ordered ONE (13:13)
[2021-03-13] MEDS ORDERED: SEVOFLURANE INHAL SOLN 250 ML BTL As Ordered ONE (15:13)
[2021-03-13] MEDS ORDERED: PHENYLephrine 500MCG 5ML (100MCG/ML) SYRINGE As Ordered ONE (15:18)
[2021-03-13 17:05] VITALS: BP 142/99
--- NOTE | 2021-03-13 19:37 | RO ---
OPERATIVE NOTE DATE OF OPERATION: 03/13/2021 PREOPERATIVE DIAGNOSIS: Pacemaker battery depletion. POSTOPERATIVE DIAGNOSIS: Pacemaker battery depletion. FINDINGS: Pacemaker battery depletion. PROCEDURE PERFORMED: Explantation of old and implantation of new dual-chamber pacemaker pulse generator. SURGEON: Edson Zuleta M.D. AUTOMOBILE CARPETS MOLDER: None. ANESTHESIA: Lidocaine 1% local/monitored anesthetic care. SPECIMENS: Old Medtronic dual-chamber pacemaker pulse generator. ESTIMATED BLOOD LOSS: Less than 5 mL. BLOOD PRODUCTS REPLACED: None. DRAINS: None. COMPLICATIONS: None. PROCEDURE DESCRIPTION: Patient was prepped and draped over the left anterior chest. 3M Ioban film was applied. A 15 blade was used to go through the existing incisional scar over the pacemaker pulse generator and was used to dissect down to and through the anterior capsule overlying the pacemaker pulse generator. The pacemaker pulse generator was then removed from the pacemaker pocket. The existing pacemaker lead terminal pins were removed from the existing pacemaker pulse generator after loosening the set screws and transferred to the new pacemaker pulse generator and each one was secured using a hex screwdriver to tighten the set screws for both leads. A pull test was applied to both leads to demonstrate that the leads were secure in the new pacemaker pulse generator header. I then placed an 0 Ethibond suture to the lateral aspect of the floor of the pocket of the pacemaker pocket to service the tie-down for the pacemaker pulse generator. I also applied small amounts of PEAK PlasmaBlade cautery on cut to free up some of the existing pacemaker leads. The caudal aspect of the pacemaker pocket was enlarged a small amount using cautery. A large Medtronic TYRX antimicrobial envelope was cut into four pieces and placed into the pacemaker pocket. The excess lead material was then curled underneath the pacemaker pulse generator and placed along with the new pacemaker pulse generator into the existing pacemaker pocket. The deep layer was closed using individual sutures consisting of 2-0 Vicryl. The skin was then closed using a subcuticular continuous stitch of 4-0 Biosyn with the free ends of the suture protruding 1 cm from the ends of the incision line through the skin. I then cut the Biosyn suture at both ends at the level of the skin. A Prineo dressing was applied. The patient tolerated the procedure well without any immediate complications. The Medronic TYRX envelope used was reference #[id number] with lot #[id number]. The new pacemaker pulse generator implanted was a Medtronic Siren XT DR MRI Vanessa, model W1DR01 with serial number [id number]. The existing pacemaker pulse generator that was removed was a Medtronic Adapta IS-1 , product number [id number] with serial number [id number] originally implanted 12/29/2012. The existing right atrial lead was a Medtronic model 4574 with serial number [id number] originally implanted 02/19/2004. Device based testing through the new pacemaker pulse generator for the right atrium showed P waves of 5.4 millivolts with lead impedance of 5 Hertz and 51 ohms and capture threshold of 0.5 volts at 0.4 milliseconds. The existing right ventricular lead was a Medtronic model 4074 with serial number [id number] originally implanted 02/19/2004. Device based testing for the right ventricular lead showed lead impedance of 475 ohms, capture threshold 1.75 volts at 0.4 milliseconds.
== END 2021-03-13 17:19 | disposition home or self-care (01) ==
LOC: M SDC 11:30 → EDSTATUS 13:43 → M SDC 17:19
PROVIDERS: ATTEND Internal Medicine Cardiovascular Disease
DX: Z45.010 Encounter for checking and testing of cardiac pacemaker pulse generator [battery] (principal); I44.2 Atrioventricular block, complete; I12.9 Hypertensive chronic kidney disease with stage 1 through stage 4 chronic kidney disease, or unspecified chronic kidney disease; E78.5 Hyperlipidemia, unspecified; I71.4 Abdominal aortic aneurysm, without rupture; Z95.1 Presence of aortocoronary bypass graft; K21.9 Gastro-esophageal reflux disease without esophagitis; N18.30 Chronic kidney disease, stage 3 unspecified; R13.10 Dysphagia, unspecified; Z86.73 Personal history of transient ischemic attack (TIA), and cerebral infarction without residual deficits; Z86.711 Personal history of pulmonary embolism; Z79.899 Other long term (current) drug therapy; Z88.8 Allergy status to other drugs, medicaments and biological substances; Z88.6 Allergy status to analgesic agent; Z88.1 Allergy status to other antibiotic agents; Z91.048 Other nonmedicinal substance allergy status; Z91.040 Latex allergy status
CPT/HCPCS: 33228; C1785; J0690; J2370; J3010; U0002